=== PATIENT | male | born 1955 | race Caucasian/White ===

== ENCOUNTER 2016-12-18 04:38 | Inpatient (IN) | payer OTHER ==
[~2016-12-18] VITALS: Ht 182.9 cm; Wt 70.2 kg
[~2016-12-18 04:38] MED LIST: CEPH500C2 PO; HYDR-5688 PO; MISC1CAP60 PO
[2016-12-18] MEDS ORDERED: ASPIRIN 81 MG CHEW PO STA (05:03)
[2016-12-18 05:15] LABS: BASO % 0.3 %; BASO ABS # 0.02 K/uL (0-0.2); COMPLETE YES; EOS % 1.5 %; HEMATOCRIT 42.2 % (42-52); IG% 0.2 %; LYMPH % 27.2 %; MEAN CELL VOLUME 86.1 fL (80-100); MEAN CORPUSCULAR HEMOGLOBIN 29.4 pg (25-34); MEAN CORPUSCULAR HGB CONC 34.1 g/dl (32-36); MEAN PLATELET VOLUME 9.6 fL (7.4-10.4); NEUT % 59.8 %; PLATELET COUNT 223 K/uL (130-400); WHITE BLOOD COUNT 6.62 K/uL (4.8-10.8)
[2016-12-18] MEDS ORDERED: NITROGLYCERIN 0.4 MG SL PER TAB CHARGE SL PRN ×2 (05:15→07:15)
[2016-12-18 05:23] LABS: BUN/CREATININE RATIO 16.3 (10-20); CALCIUM 8.3 mg/dl (8.5-10.1); CREATININE 0.98 mg/dl (0.60-1.40); POTASSIUM 3.2 mmol/L (3.5-5.1)
[2016-12-18 05:28] LABS: CKMB/CK RATIO 1.4 (0-3.0)
[2016-12-18] MEDS ORDERED: POTASSIUM CHLORIDE 10 MEQ TABCR PO STA (05:46)
--- NOTE | 2016-12-18 05:58 | EMERGENCY ROOM VISIT NOTE ---
History First contact with patient: 04:43 Chief Complaint: CHEST PAIN Stated Complaint: TIGHTNESS IN LEFT CHEST Nursing Triage Summary: see triage note History of Present Illness The patient is a 61 year old male who presents to the Emergency Room with complaints of left sided chest pain for the past 3 days described as aching, ranging in severity 5 out of 10. Nothing makes it better or worse. No stress test. No family history of heart disease. Patient used to smoke. He quit 4 years ago. Patient denies blood pressure, cholesterol, diabetes. No recent travel. No leg pain or swelling. Patient denies dyspnea, fever, chills, cough , congestion, abdominal pain, nausea, vomiting, diarrhea, radiating pain, diaphoresis. Review of Systems See HPI for pertinent positives & negatives. A total of 10 systems reviewed and were otherwise negative. Past Medical/Surgical History BPH Social History Smoking Status: Former Smoker Drug Use: none Marital Status: Housing Status: lives with family Occupation Status: employed Current/Historical Medications Scheduled Misc Natural Products (Saw [place]), 1 CAP PO BID Allergies Coded Allergies: No Known Allergies (Verified , 12/18/16) Physical Exam Vital Signs Date Time Temp Pulse Resp B/P Pulse Ox O2 Delivery O2 Flow Rate FiO2 12/18/16 05:06 98 Room Air 12/18/16 05:06 98 Room Air 12/18/16 04:55 74 12/18/16 04:53 97 Room Air 12/18/16 04:41 36.6 72 16 112/69 96 Room Air Physical Exam VITALS: Vitals are noted on the nurse's note and reviewed by myself. Vital signs stable. GENERAL: Pleasant male anxious-appearing, in no acute distress, nondiaphoretic, well-developed well-nourished. SKIN: The skin was without rashes, erythema, edema, or bruising. There is no tenting of the skin. Capillary reflex less than 2 seconds. HEAD: Normocephalic atraumatic. EARS: External auditory canals clear, tympanic membranes pearly greco without erythema or effusion bilaterally. EYES: Pupils equal round and reactive to light and accommodation. Conjunctivae without injection, sclerae without icterus. Extraocular movements intact. NOSE: Patent, turbinates without inflammation or discharge. MOUTH: Mucous membranes moist Pharynx without erythema or exudate. Uvula midline. Airway patent. Tongue does not deviate. NECK: Supple without nuchal rigidity. No lymphadenopathy. No thyromegaly. Cervical spine is nontender. No JVD. HEART: Regular rate and rhythm without murmurs gallops or rubs. Chest nontender to palpation LUNGS: Clear to auscultation bilaterally without wheezes, rales or rhonchi. No dullness to percussion. No retractions or accessory muscle use. ABDOMEN: Positive bowel sounds x 4. Normal tympanic percussion. Soft, nontender, without masses or organomegaly. Garzon sign negative. No guarding or rebound tenderness. MUSCULOSKELETAL: No muscle atrophy, erythema, or edema noted. NEURO: Patient was alert and oriented to person place and time. Normal sensation to light and sharp touch. No focal neurological deficits. Medical Decision & Procedures Laboratory Results 12/18/16 04:55 Red Blood Count 4.90, Mean Corpuscular Volume 86.1, Mean Corpuscular Hemoglobin 29.4, Mean Corpuscular Hemoglobin Concent 34.1, Mean Platelet Volume 9.6, Neutrophils (%) (Auto) 59.8, Lymphocytes (%) (Auto) 27.2, Monocytes (%) (Auto) 11.0, Eosinophils (%) (Auto) 1.5, Basophils (%) (Auto) 0.3, Neutrophils # (Auto ) 3.96, Lymphocytes # (Auto) 1.80, Monocytes # (Auto) 0.73, Eosinophils # (Auto ) 0.10, Basophils # (Auto) 0.02 12/18/16 04:55 Test 12/18/16 04:55 12/18/16 05:01 White Blood Count 6.62 K/uL (4.8-10.8) Red Blood Count 4.90 M/uL (4.7-6.1) Hemoglobin 14.4 g/dL (14.0-18.0) Hematocrit 42.2 % (42-52) Mean Corpuscular Volume 86.1 fL (80-100) Mean Corpuscular Hemoglobin 29.4 pg (25-34) Mean Corpuscular Hemoglobin Concent 34.1 g/dl (32-36) Platelet Count 223 K/uL (130-400) Mean Platelet Volume 9.6 fL (7.4-10.4) Neutrophils (%) (Auto) 59.8 % Lymphocytes (%) (Auto) 27.2 % Monocytes (%) (Auto) 11.0 % Eosinophils (%) (Auto) 1.5 % Basophils (%) (Auto) 0.3 % Neutrophils # (Auto) 3.96 K/uL (1.4-6.5) Lymphocytes # (Auto) 1.80 K/uL (1.2-3.4) Monocytes # (Auto) 0.73 K/uL (0.11-0.59) Eosinophils # (Auto) 0.10 K/uL (0-0.5) Basophils # (Auto) 0.02 K/uL (0-0.2) RDW Standard Deviation 41.7 fL (36.4-46.3) RDW Coefficient of Variation 13.3 % (11.5-14.5) Immature Granulocyte % (Auto) 0.2 % Immature Granulocyte # (Auto) 0.01 K/uL (0.00-0.02) Anion Gap 9.0 mmol/L (3-11) Est Creatinine Clear Calc Drug Dose 82.9 ml/min Estimated GFR () 95.4 Estimated GFR (Non- 82.3 BUN/Creatinine Ratio 16.3 (10-20) Calcium Level 8.3 mg/dl (8.5-10.1) Total Bilirubin 0.4 mg/dl (0.2-1) Direct Bilirubin 0.1 mg/dl (0-0.2) Aspartate Amino Transf (AST/SGOT) 10 U/L (15-37) Alanine Aminotransferase (ALT/SGPT) 19 U/L (12-78) Alkaline Phosphatase 72 U/L (45-117) Total Creatine Kinase 119 U/L (39-308) Creatine Kinase MB 1.7 ng/ml (0.5-3.6) Creatine Kinase MB Ratio 1.4 (0-3.0) Total Protein 6.9 gm/dl (6.4-8.2) Albumin 3.8 gm/dl (3.4-5.0) Lipase 134 U/L (73-393) Bedside Troponin I 0.000 ng/ml (0-0.045) Medications Administered Medications (Trade) Dose Ordered Sig/Kevin Route Start Time Stop Time Status Last Admin Dose Admin Aspirin (Aspirin Chew) 324 mg NOW STAT PO 12/18/16 05:03 2/24/17 05:05 DC 12/18/16 05:11 324 MG Nitroglycerin (Nitrostat Tab) 0.4 mg Q5M PRN SL 12/18/16 05:15 01/17/17 05:14 12/18/16 05:11 0.4 MG ED Course Prior records/ancillary studies reviewed. Triage Nursing notes reviewed. The patient's history was concerning for chest pain. Differential diagnosis: Etiologies such as cardiac ischemia, aortic dissection, pulmonary embolism, pneumonia, pneumothorax, musculoskeletal, infections, pericarditis, myocarditis , esophageal rupture, gastrointestinal, as well as others were entertained. Physical examination: As above. ER treatment provided: Aspirin, nitroglycerin On reassessment the patient felt better. Diagnostic interpretation by me: The electrocardiogram was normal sinus, normal intervals, incomplete right bundle-branch block, no acute ST-T wave changes. Impression incomplete right bundle branch block interpreted by myself The labs revealed [] Imaging studies: Chest x-ray with no acute consolidation or pneumothorax per my interpretation Consultation: A consultation was placed with the hospitalist Dr Corbin. The case was discussed and diagnostics were reviewed. The patient was evaluated in the ER for further treatment. Exam and history seem consistent with chest pain. Patient will be evaluated by medicine for possible admission. Negative troponin. He used to smoke. By the evaluation outlined above emergent etiologies such as aortic dissection, pulmonary embolism, pneumonia, pneumothorax, infections, pericarditis, myocarditis, gastrointestinal, as well as others were deemed relatively unlikely. The pt informed about the findings as listed above. All questions were answered and pleased with the treatment. Case reviewed with my attending Medical Decision As above Impression Primary Impression: Substernal precordial chest pain Departure Information Dispostion Being Evaluated By Hospitalist Condition FAIR Referrals Deo Crabtree M.D. (PCP) Patient Instructions My [facility]
[2016-12-18] MEDS ORDERED: ONDANSETRON INJ 2 MG/ML 2 ML VIAL IV PRN (07:15)
[2016-12-18] MEDS ORDERED: POLYETHYLENE (MIRALAX) 17 GM PACK PO PRN (07:15)
[2016-12-18] MEDS ORDERED: GI COCKTAIL PO ONE (07:15)
[2016-12-18] MEDS ORDERED: ACETAMINOPHEN 325 MG TAB PO PRN (07:15)
[2016-12-18] MEDS ORDERED: ATORVASTATIN 40 MG TAB PO ONE (07:15)
[2016-12-18] MEDS ORDERED: GI COCKTAIL PO PRN (07:15)
--- NOTE | 2016-12-18 07:19 | History and Physical ---
History & Physical Date & Time of Service: Dec 18, 2016 at 07:08 Chief Complaint: Tightness In Left Chest Primary Care Physician: Deo Crabtree M.D. History of Present Illness Source: patient The patient is a 61 yoM with no history of CAD nor risk factors aside from age, who presents to the ER with 3 days of chest pain that became more intense today. He does not remember what he was doing when the pain began but it was described as a tightness in his L anterior chest wall without radiation, and will become intermittently more intense, although there are no obvious triggers for this. The intense episodes last <30 mins. He reports associated symptoms including some SOB, lightheadedness, palpitations, and numbness in his hands ( however, this is chronic). He denies any nausea, vomiting, diarrhea, abdominal pain, or blood per rectum. He is a former smoker but has quit. Past Medical/Surgical History Medical Problems: (1) BPH (benign prostatic hypertrophy) Status: Chronic Family History Parkinson's disease No h/o CAD Social History Smoking Status: Former Smoker Smokeless Tobacco Use: No Alcohol Use: none Drug Use: none Marital Status: Housing status: lives with family, lives with significant other Occupational Status: employed Immunizations History of Influenza Vaccine: Yes Influenza Vaccine Date: Jul 25, 2016 History of Tetanus Vaccine?: Yes Tetanus Immunization Date: Jan 15, 2009 History of Pneumococcal: Yes Pneumococcal Date: Jan 15, 2009 History of Hepatitis B Vaccine: Unknown Multi-Drug Resistant Organisms History of MDRO: No Allergies Coded Allergies: No Known Allergies (Verified , 12/18/16) Home Medications Scheduled Misc Natural Products (Saw [place]), 1 CAP PO BID Review of Systems All systems reviewed and negative except as indicated on HPI above. Physical Exam Vital Signs Date Time Temp Pulse Resp B/P Pulse Ox O2 Delivery O2 Flow Rate FiO2 12/18/16 06:59 69 18 116/60 97 Room Air 12/18/16 06:11 70 20 95/58 96 Room Air 12/18/16 05:06 98 Room Air 12/18/16 05:06 98 Room Air 12/18/16 04:55 74 12/18/16 04:53 97 Room Air 12/18/16 04:41 36.6 72 16 112/69 96 Room Air GEN: WNWD, in no acute distress, alert and appropriate HEENT: NC/AT, PERRL, normal sclerae, pharynx non-acute, MMM CARDIO: reg rate, S1/2 heard without m/g/r, no TTP on anterior chest wall. LUNGS: CTA bilaterally, no crackles, rales or wheezes, good diaphragmatic excursion ABD: soft, non-tender, non-distended, no rebound or guarding EXTREMITY: no LE swelling or edema, extremities are warm and well-perfused NEURO: CN 2-12 grossly intact, no gross focal deficits MUSC: 5/5 strength throughout, no focal deficits SKIN: warm and dry Diagnostics Laboratory Results Results Past 24 Hours Test 12/18/16 04:55 12/18/16 05:01 12/18/16 07:01 Range/Units White Blood Count 6.62 4.8-10.8 K/uL Red Blood Count 4.90 4.7-6.1 M/uL Hemoglobin 14.4 14.0-18.0 g/dL Hematocrit 42.2 42-52 % Mean Corpuscular Volume 86.1 80-100 fL Mean Corpuscular Hemoglobin 29.4 25-34 pg Mean Corpuscular Hemoglobin Concent 34.1 32-36 g/dl Platelet Count 223 130-400 K/uL Mean Platelet Volume 9.6 7.4-10.4 fL Neutrophils (%) (Auto) 59.8 % Lymphocytes (%) (Auto) 27.2 % Monocytes (%) (Auto) 11.0 % Eosinophils (%) (Auto) 1.5 % Basophils (%) (Auto) 0.3 % Neutrophils # (Auto) 3.96 1.4-6.5 K/uL Lymphocytes # (Auto) 1.80 1.2-3.4 K/uL Monocytes # (Auto) 0.73 0.11-0.59 K/uL Eosinophils # (Auto) 0.10 0-0.5 K/uL Basophils # (Auto) 0.02 0-0.2 K/uL RDW Standard Deviation 41.7 36.4-46.3 fL RDW Coefficient of Variation 13.3 11.5-14.5 % Immature Granulocyte % (Auto) 0.2 % Immature Granulocyte # (Auto) 0.01 0.00-0.02 K/uL Sodium Level 143 136-145 mmol/L Potassium Level 3.2 3.5-5.1 mmol/L Chloride Level 105 98-107 mmol/L Carbon Dioxide Level 29 21-32 mmol/L Anion Gap 9.0 3-11 mmol/L Blood Urea Nitrogen 16 7-18 mg/dl Creatinine 0.98 0.60-1.40 mg/dl Est Creatinine Clear Calc Drug Dose 82.9 ml/min Estimated GFR () 95.4 Estimated GFR (Non- 82.3 BUN/Creatinine Ratio 16.3 10-20 Random Glucose 88 70-99 mg/dl Calcium Level 8.3 8.5-10.1 mg/dl Total Bilirubin 0.4 0.2-1 mg/dl Direct Bilirubin 0.1 0-0.2 mg/dl Aspartate Amino Transf (AST/SGOT) 10 15-37 U/L Alanine Aminotransferase (ALT/SGPT) 19 12-78 U/L Alkaline Phosphatase 72 45-117 U/L Total Creatine Kinase 119 39-308 U/L Creatine Kinase MB 1.7 0.5-3.6 ng/ml Creatine Kinase MB Ratio 1.4 0-3.0 Total Protein 6.9 6.4-8.2 gm/dl Albumin 3.8 3.4-5.0 gm/dl Lipase 134 73-393 U/L Bedside Troponin I 0.000 0-0.045 ng/ml CXR normal Normal EKG (SR 67, no ST changes or Q waves) Impression Assessment and Plan 61 yo M with age as his only RF for CAD presents with 3 days of atypical chest pain 1. 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 Trend enzymes, ASA/statin, lipid panel, monitor on telemetry. GI cocktail to treat his tightness; nitro given in the ER did not cause pain to completely go away. PE unlikely without hypoxia, increased work of breathing or risk factors. No infectious symptoms and CXR is negative making pneumonia less likely. 2. BPH-hold saw [place] at this time 3. Hypokalemia-replace. DVT proph-Lovenox. Full Code Dispo-to telemetry floor Jade Royal DO [facility] Hospitalist. Level of Care Telemetry Resuscitation Status FULL RESUSCITATION VTE Prophylaxis VTE Risk Assessment Done? Y/N: Yes Risk Level: Moderate Given or contraindicated: Enoxaparin (Lovenox)SQ
[2016-12-18 07:27] LABS: CHOLESTEROL/HDL RATIO 2.6
[2016-12-18] MEDS ORDERED: IV FLUIDS COMPLETED PRN (07:45)
--- NOTE | 2016-12-18 08:16 | DIAGNOSTIC IMAGING REPORT ---
CHEST ONE VIEW PORTABLE HISTORY: Atypical CHEST PAIN COMPARISON: Chest 03/08/2006. FINDINGS: A few linear scarlike densities within the right lung apex. This is not significantly changed. Otherwise, the lungs are clear. The heart is normal in size. No pleural effusions. No pneumothorax. Lungs remain hyperexpanded. IMPRESSION: No significant change compared to the prior study. No acute process. Electronically signed by: Rogelio Coelho M.D. 12/18/2016 8:15 AM Dictated Date/Time: 12/18/2016 8:13 AM
[2016-12-18 08:40] VITALS: BP 119/70; PULSE 77; TEMP 36.7; O2SAT 97; Ht 182.9 cm; Wt 70.2 kg
[2016-12-18] MEDS ORDERED: ALUMINUM/MAGNESIUM SUSP 72 ML, LIDOCAINE HCL 2% VISCOUS SOLN 24 ML, BARCODE IDENTIFIER ... PO PRN ×2 (09:15)
[2016-12-18] MEDS ORDERED: ALUMINUM/MAGNESIUM SUSP 18 ML, LIDOCAINE HCL 2% VISCOUS SOLN 6 ML, BARCODE IDENTIFIER 1 EA PO ONE ×2 (10:00)
[2016-12-18 10:04] LABS: INR 1.1 (0.9-1.1); PROTHROMBIN TIME (PATIENT) 11.3 SECONDS (9.0-12.0)
[2016-12-18] MEDS: ASPIRIN 81 MG ECTAB PO SCH (10:24)
[2016-12-18] MEDS: ENOXAPARIN 40 MG/0.4 ML SYR SC SCH (10:36)
[2016-12-18 11:54] LABS: CKMB/CK RATIO 1.5 (0-3.0)
[2016-12-18] MEDS ORDERED: POTASSIUM CHLORIDE 20 MEQ TABCR PO ONE (12:00)
[2016-12-18 12:08] VITALS: BP 103/62; PULSE 69; TEMP 36.6; O2SAT 98
[2016-12-18 15:44] VITALS: BP 109/69; PULSE 72; TEMP 36.6; O2SAT 96
--- NOTE | 2016-12-18 16:11 | ECHOCARDIOGRAM REPORT ---
*NOTICE TO RECEIVING CONSTITUTION PARTY AGENCY This information is strictly Confidential and protected under [place] law. [place] law prohibits you from making any further disclosure of this information unless further disclosure is expressly permitted by the written consent of the person to whom it pertains or is authorized by law. A general authorization for the release of medical or other information is not sufficient for this purpose. Hospital accepts no responsibility if the information is made available to any other person, INCLUDING THE PATIENT. Interpretation Summary * Name: LEOLA LABOY Study Date: 12/18/2016 02:33 PM * Patient Location: .2T\S\E220\S\1 HR: 64 * : 1955 (M/d/yyyy) Gender: Male Height: 72 in * Age: 61 yrs Ethnicity: CA Weight: 165 lb * Ordering Physician: Anna Saunders * Referring Physician: Self, Referred * Performed By: Elicia Flowers RCS * * Reason For Study: CHEST PAIN * BSA: 2.0 m2 * -- Conclusions -- * The left ventricular wall motion is normal. * There is mild concentric left ventricular hypertrophy. * Ejection Fraction = 55-60%. * There is severe focal calcification of the aortic valve * The presence of a bicuspid aortic valve cannot be excluded. * The 2D appearance of the valve and the Doppler assessment are discordant. * Doppler assessment suggests the presence of moderate aortic stenosis. * Severe aortic stenosis is suggested based on 2D appearance as well as the continuity equation. * The aortic root is mildly dilated. * The proximal ascending aorta was not visualized. Procedure Details * A complete two-dimensional transthoracic echocardiogram was performed (2D, M-mode, Doppler and color flow Doppler). Left Ventricle * The left ventricle is normal in size. * There is mild concentric left ventricular hypertrophy. * Left ventricular systolic function is normal. * Ejection Fraction = 55-60%. * The left ventricular wall motion is normal. Right Ventricle * The right ventricle is normal size. * The right ventricular systolic function is normal as assessed by tricuspid annular plane systolic excursion (TAPSE) (normal >1.5 cm). Atria * The left atrial size is normal. * Right atrial size is normal. * There is no evidence of atrial septal defect, but resolution does not allow assessment for a patent foramen ovale. Mitral Valve * The mitral valve is normal. * There is no mitral valve stenosis. * Significant mitral regurgitation is absent. Tricuspid Valve * The tricuspid valve is normal. * There is no tricuspid stenosis. * Significant tricuspid regurgitation is absent. Aortic Valve * There is severe focal calcification of the aortic valve The presence of a bicuspid aortic valve cannot be excluded. * The 2D appearance of the valve and the Doppler assessment are discordant. Doppler assessment suggest the presence of moderate aortic stenosis. Severe aortic stenosis is suggested based on 2D appearance as well as the continuity equation. * There is no significant aortic regurgitation. Pulmonic Valve * The pulmonary valve is not well seen, but the Doppler examination is normal without significant regurgitation or stenosis. Great Vessels * The aortic root is mildly dilated. The proximal ascending aorta was not visualized. Pericardium/Pleural * There is no pericardial effusion. Great Vessels * Normal inferior vena cava diameter and respiratory variation suggests normal central venous pressure. Left Ventricular Diastolic Function * Grade I diastolic dysfunction, (abnormal relaxation pattern). MMode 2D Measurements and Calculations IVSd 1.3 cm IVSs 1.7 cm LVIDd 4.2 cm LVIDs 3.1 cm LVPWd 1.5 cm LVPWs 1.5 cm IVS/LVPW 0.88 FS 25.6 % EDV(Teich) 77.1 ml ESV(Teich) 38.0 ml EF(Teich) 50.8 % EDV(cubed) 72.3 ml ESV(cubed) 29.9 ml EF(cubed) 58.7 % % IVS thick 28.6 % % LVPW thick 3.5 % LV mass(C)d 217.6 grams LV mass(C)dI 110.9 grams/m\S\2 LV mass(C)s 182.9 grams LV mass(C)sI 93.2 grams/m\S\2 SV(Teich) 39.1 ml SI(Teich) 19.9 ml/m\S\2 SV(cubed) 42.5 ml SI(cubed) 21.6 ml/m\S\2 Ao root diam 3.9 cm Ao root area 12.1 cm\S\2 LA dimension 2.4 cm LA/Ao 0.61 LVOT diam 2.0 cm LVOT area 3.2 cm\S\2 LVAd ap4 26.7 cm\S\2 LVLd ap4 7.1 cm EDV(MOD-sp4) 83.3 ml EDV(sp4-el) 85.8 ml LVAs ap4 16.6 cm\S\2 LVLs ap4 5.7 cm ESV(MOD-sp4) 39.3 ml ESV(sp4-el) 41.2 ml EF(MOD-sp4) 52.8 % EF(sp4-el) 52.0 % LVAd ap2 25.2 cm\S\2 LVLd ap2 7.1 cm EDV(MOD-sp2) 74.6 ml EDV(sp2-el) 76.1 ml LVAs ap2 14.3 cm\S\2 LVLs ap2 5.6 cm ESV(MOD-sp2) 29.5 ml ESV(sp2-el) 30.8 ml EF(MOD-sp2) 60.4 % EF(sp2-el) 59.6 % LVLd %diff 0.49 % EDV(MOD-bp) 78.5 ml LVLs %diff -0.25 % ESV(MOD-bp) 34.4 ml EF(MOD-bp) 56.1 % SV(MOD-sp4) 44.0 ml SI(MOD-sp4) 22.4 ml/m\S\2 SV(MOD-sp2) 45.1 ml SI(MOD-sp2) 23.0 ml/m\S\2 SV(MOD-bp) 44.0 ml SI(MOD-bp) 22.4 ml/m\S\2 SV(sp4-el) 44.6 ml SI(sp4-el) 22.7 ml/m\S\2 SV(sp2-el) 45.3 ml SI(sp2-el) 23.1 ml/m\S\2 Doppler Measurements and Calculations MV E max dev 62.6 cm/sec MV A max dev 58.2 cm/sec MV E/A 1.1 MV P1/2t max dev 64.7 cm/sec MV P1/2t 90.6 msec MVA(P1/2t) 2.4 cm\S\2 MV dec slope 209.3 cm/sec\S\2 MV dec time 0.24 sec Ao V2 max 285.8 cm/sec Ao max PG 32.7 mmHg Ao max PG (full) 30.9 mmHg Ao V2 mean 200.4 cm/sec Ao mean PG 18.2 mmHg Ao mean PG (full) 17.2 mmHg Ao V2 VTI 63.5 cm ANA(I,A) 0.81 cm\S\2 ANA(I,D) 0.81 cm\S\2 ANA(V,A) 0.74 cm\S\2 ANA(V,D) 0.74 cm\S\2 LV V1 max PG 1.8 mmHg LV V1 mean PG 1.0 mmHg LV V1 max 67.1 cm/sec LV V1 mean 48.2 cm/sec LV V1 VTI 16.3 cm SV(Ao) 771.1 ml SI(Ao) 392.8 ml/m\S\2 SV(LVOT) 51.5 ml SI(LVOT) 26.2 ml/m\S\2 PA V2 max 71.8 cm/sec PA max PG 2.1 mmHg
[2016-12-18 17:43] LABS: CKMB/CK RATIO 1.3 (0-3.0)
[2016-12-18 20:00] VITALS: BP 122/71; PULSE 76; TEMP 36.7; O2SAT 96
[2016-12-18 23:50] VITALS: BP 109/61; PULSE 77; TEMP 36.6; O2SAT 95
[2016-12-19 04:22] VITALS: BP 109/62; PULSE 68; TEMP 37.1; O2SAT 97
[2016-12-19 08:06] VITALS: BP 115/66; PULSE 73; TEMP 36.6; O2SAT 95
[2016-12-19] MEDS: ENOXAPARIN 40 MG/0.4 ML SYR SC SCH (08:06)
[2016-12-19] MEDS: ASPIRIN 81 MG ECTAB PO SCH (08:06)
[2016-12-19 09:48] LABS: BUN/CREATININE RATIO 13.7 (10-20); CALCIUM 9.2 mg/dl (8.5-10.1); CREATININE 0.98 mg/dl (0.60-1.40); POTASSIUM 3.9 mmol/L (3.5-5.1)
--- NOTE | 2016-12-19 11:50 | Progress Note ---
Internal Med Progress Note Date of Service: Dec 19, 2016. Provider Documentation: SUBJECTIVE: The patient was seen and examined on 12/18/16 as well Still has some discomfort in left sided chest wall on movement No other symptoms associated with it No arrhythmia noted OBJECTIVE: Vital Signs-as noted below Exam: General-No distress at rest Eyes-normal ENT-normal Neck-Supple Lungs-Clear to auscultate bilaterally ,no tenderness locally Heart-Regular,no murmur appreciated Abdomen-Benign,no masses,bowel sound present Extremities-No edema Neuro-AAOx3 Lab data as noted below. ASSESSMENT & PLAN: Chest pain No significant Risk factors No EKG and or Ella changes -No ACS Still has some left sided chest discomfort No associated symptoms Continue current medications Severe Aortic Stenosis Diagnosed ECHO during this Admission ECHO:: * The left ventricular wall motion is normal. * There is mild concentric left ventricular hypertrophy. * Ejection Fraction = 55-60%. * There is severe focal calcification of the aortic valve * The presence of a bicuspid aortic valve cannot be excluded. * The 2D appearance of the valve and the Doppler assessment are discordant. * Doppler assessment suggests the presence of moderate aortic stenosis. * Severe aortic stenosis is suggested based on 2D appearance as well as the continuity equation. * The aortic root is mildly dilated. * The proximal ascending aorta was not visualized. Chest pain could be due to Cardiology Consult and probable further Cardiac evaluation BPH-hold sid [place] at this time Denies any symptoms DVT proph-Lovenox. Full Code DISPOSITION Awaited Vital Signs: Date Time Temp Pulse Resp B/P Pulse Ox O2 Delivery O2 Flow Rate FiO2 12/19/16 08:06 36.6 73 18 115/66 95 Room Air 12/19/16 08:05 Room Air 12/19/16 04:22 37.1 68 16 109/62 97 Room Air 12/19/16 04:15 Room Air 12/19/16 00:00 Room Air 12/18/16 23:50 36.6 77 20 109/61 95 Room Air 12/18/16 20:00 Room Air 12/18/16 20:00 36.7 76 16 122/71 96 Room Air 12/18/16 16:02 Room Air 12/18/16 15:44 36.6 72 18 109/69 96 Room Air 12/18/16 12:08 36.6 69 18 103/62 98 Room Air 12/18/16 12:02 Room Air Lab Results: Results Past 24 Hours Test 12/18/16 17:03 12/19/16 08:58 Range/Units Total Creatine Kinase 117 39-308 U/L Creatine Kinase MB 1.5 0.5-3.6 ng/ml Creatine Kinase MB Ratio 1.3 0-3.0 Troponin I < 0.015 0-0.045 ng/ml Sodium Level 136 136-145 mmol/L Potassium Level 3.9 3.5-5.1 mmol/L Chloride Level 100 98-107 mmol/L Carbon Dioxide Level 31 21-32 mmol/L Anion Gap 5.0 3-11 mmol/L Blood Urea Nitrogen 13 7-18 mg/dl Creatinine 0.98 0.60-1.40 mg/dl Est Creatinine Clear Calc Drug Dose 78.8 ml/min Estimated GFR () 95.4 Estimated GFR (Non- 82.3 BUN/Creatinine Ratio 13.7 10-20 Random Glucose 117 70-99 mg/dl Calcium Level 9.2 8.5-10.1 mg/dl
[2016-12-19 12:05] VITALS: BP 111/71; PULSE 78; TEMP 36.7; O2SAT 96
[2016-12-19 15:50] VITALS: BP 118/76; PULSE 81; TEMP 36.7; O2SAT 96
[2016-12-19 19:47] VITALS: BP 129/81; PULSE 92; TEMP 36.7; O2SAT 95
[2016-12-19 23:40] VITALS: BP 105/71; PULSE 76; TEMP 36.5; O2SAT 96
[2016-12-20] VITALS (7 sets, daily range): BP systolic 98–138; BP diastolic 60–76; PULSE 74–95; TEMP 36.4–36.8; O2SAT 96–99
[2016-12-20] MEDS: ASPIRIN 81 MG ECTAB PO SCH (07:51)
[2016-12-20] MEDS: ENOXAPARIN 40 MG/0.4 ML SYR SC SCH (07:51)
[2016-12-20] MEDS: NSS + 20MEQ KCL 1000ML 1,000 ML IV SCH ×2 (09:41→23:28)
[2016-12-20] MEDS ORDERED: OPTIRAY 320 IV PRN (11:30)
--- NOTE | 2016-12-20 11:41 | CARDIOLOGY CONSULTATION ---
DATE OF CONSULTATION: 12/20/2016 REASON FOR CONSULTATION: Bicuspid aortic valve, aortic stenosis, and chest pain. REFERRING PHYSICIAN: Dr. Anna Saunders. CHIEF COMPLAINT ON ADMISSION: Chest pain. HISTORY OF PRESENT ILLNESS: Mr. Chang is a 61-year-old male with no prior cardiovascular history, presented to the Emergency Department with 3 days of intermittent chest discomfort. On the day prior to admission, he noticed a particularly severe episode of chest discomfort on his left side, described as a pressure. The discomfort occurred when he was walking from the hospital to his vehicle after work. The discomfort lasted less than 1 minute. 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 He is able to complete all of his work activities without exertional chest pain or unusual shortness of breath. He is also active at his home life, engaging in regular hikes. At times, he notes dyspnea on exertion when climbing hills. Otherwise, his functional capacity is stable. Denies lightheadedness, dizziness, palpitations, syncope or near syncope. His cardiac enzymes are undetectable. His resting 2D transthoracic echo demonstrated a bicuspid aortic valve with moderate to severe aortic stenosis. He is a former smoker. Currently, the patient is pain free. He notes some brief episodes of chest discomfort on his left side, which are lasting under 1 minute. There is no associated shortness of breath. There are no dysrhythmias on telemetry. His is present at the bedside. No other complaints at this time. REVIEW OF SYSTEMS: The pertinent positive noted above. A comprehensive 10-system review is otherwise negative. PAST MEDICAL HISTORY: Benign prostatic hypertrophy. FAMILY HISTORY: Significant for Parkinson's disease. There is no family history of bicuspid valve, aortic dissection, premature coronary artery disease, or sudden cardiac . SOCIAL HISTORY: Former cigarette and smokeless tobacco use. He is and lives with his . ALLERGIES: No known drug allergies. HOME MEDICATIONS: None, currently consumes [place] twice daily. ECG on admission is sinus rhythm with an incomplete right bundle-branch block. LABORATORY DATA: Cardiac enzymes are negative x3 sets. LDL 78. Chest x-ray within normal limits. PHYSICAL EXAMINATION: VITAL SIGNS: Temperature is 36.6 degrees centigrade, pulse 83 beats per minute and regular, respiratory rate is 18 breaths per minute, blood pressure 103/63 and SaO2 is 96% on room air. GENERAL: NAD, awake, alert and oriented x3. HEENT: His mucous membranes are moist. There is no scleral icterus. Conjunctivae are pink. NECK: Supple without JVD or HJR. No carotid bruit. HEART: Regular with a normal S1 and S2. There is no murmur, rub, or gallop. LUNGS: Clear. There are no rales, rhonchi or wheeze. ABDOMEN: Soft and nontender. No rebound or guarding. Normal bowel sounds. EXTREMITIES: Warm and dry. There is no clubbing, cyanosis, or edema. Dorsalis pedis and posterior tibial pulses are 2/4 bilaterally. Radial pulses are 2/4 bilaterally. There is no abdominal bruit. NEUROLOGIC: Demonstrates no focal deficit. FINAL IMPRESSION: 1. A 61-year-old male admitted with chest discomfort with atypical features, which is not exertional. His initial evaluation significant for evidence of bicuspid valve and possible moderate aortic stenosis, although the aortic stenosis is mild by a Doppler criteria on recent echocardiogram. 2. Mild aortic root enlargement per resting 2D transthoracic echo. 3. No evidence of dysrhythmia on telemetry. PLAN AND RECOMMENDATIONS: Due to intermittent chest discomfort, evidence of bicuspid valve with mild aortic root enlargement, I have ordered a CT angiogram of the chest to rule out aneurysm/dissection. A CT is within normal limits. We will plan transesophageal echocardiogram in the a.m. for further assessment of severity of aortic stenosis and bicuspid valve. No medication changes at this time. Continue telemetry monitoring during hospitalization. Further recommendations pending review of testing. The risks, benefits and alternatives to transesophageal echocardiogram were discussed at length. Both the patient and his were agreeable. Thank you for allowing me to take part in the care of your patient. ERROL
--- NOTE | 2016-12-20 12:40 | DIAGNOSTIC IMAGING REPORT ---
CHEST CTA for AORTIC DISSECTION CT DOSE: 458.79 mGy.cm HISTORY: Atypical chest pain. TECHNIQUE: Multiaxial CT images of the chest were performed both before and after the intravenous administration of contrast to evaluate the aorta. Maximal intensity projection images were also obtained. COMPARISON STUDY: Chest 12/18/2016. FINDINGS: Noncontrast imaging shows no evidence for an intrauterine hematoma within the thoracic aorta. Calcifications at the aortic valve. Normal caliber thoracic aorta with no evidence for dissection. The central pulmonary arteries are patent. The heart is normal in size. No pleural or pericardial effusions. No mediastinal or hilar lymphadenopathy. There are 3 hypodense lesions within the liver with the largest in the left hepatic lobe measuring 1.7 cm. These likely represent cysts. There is a partially visualized cyst at the upper pole the right kidney. Normal adrenal glands. No fractures within the visualized osseous structures. No pneumothorax. The central airways are patent. Irregular biapical densities favor scarring. The lungs are otherwise clear. IMPRESSION: No evidence for an aortic dissection. Small amount of calcification at the aortic valve. Electronically signed by: Rogelio Coelho M.D. 12/20/2016 12:39 PM Dictated Date/Time: 12/20/2016 12:31 PM
--- NOTE | 2016-12-20 14:22 | Anesthesiology Progress Note ---
Anesthesia Progress Note Date of Service Dec 20, 2016. Progress Notes Pt is scheduled for YOKO on 12/21/16. Pt has h/o BPH and ?angina. On this admission, he has newly diagnosed , possibly mod-severe, possible bicuspid with mild aortic root enlargement. The pt has good functional status. Pt's records were reviewed. The pt is an acceptable candidate for MAC anesthesia. Consent was obtained from the pt. All questions/concerns were addressed.
--- NOTE | 2016-12-20 15:05 | Progress Note ---
Internal Med Progress Note Date of Service: Dec 20, 2016. Provider Documentation: SUBJECTIVE: The patient was seen and examined on 12/18/16 as well Still has some discomfort in left sided chest wall on movement No other symptoms associated with it No arrhythmia noted Has been complaining of occasional left sided CP and having Tachycardia OBJECTIVE: Vital Signs-as noted below Exam: General-No distress at rest Eyes-normal ENT-normal Neck-Supple Lungs-Clear to auscultate bilaterally ,no tenderness locally Heart-Regular,no murmur appreciated Abdomen-Benign,no masses,bowel sound present Extremities-No edema Neuro-AAOx3 Lab data as noted below. ASSESSMENT & PLAN: Chest pain No significant Risk factors No EKG and or Ella changes -No ACS Still has some left sided chest discomfort No associated symptoms Continue current medications CTA is negative for any Dissection Severe Aortic Stenosis Diagnosed ECHO during this Admission ECHO:: * The left ventricular wall motion is normal. * There is mild concentric left ventricular hypertrophy. * Ejection Fraction = 55-60%. * There is severe focal calcification of the aortic valve * The presence of a bicuspid aortic valve cannot be excluded. * The 2D appearance of the valve and the Doppler assessment are discordant. * Doppler assessment suggests the presence of moderate aortic stenosis. * Severe aortic stenosis is suggested based on 2D appearance as well as the continuity equation. * The aortic root is mildly dilated. * The proximal ascending aorta was not visualized. Chest pain could be due to Cardiology Consult and probable further Cardiac evaluation Appreciate Cardiology input YOKO tomorrow BPH-hold sid leon at this time Denies any symptoms DVT proph-Lovenox. Full Code DISPOSITION Awaited Vital Signs: Date Time Temp Pulse Resp B/P Pulse Ox O2 Delivery O2 Flow Rate FiO2 12/20/16 12:02 Room Air 12/20/16 11:40 36.7 86 18 138/76 96 Room Air 12/20/16 08:05 Room Air 12/20/16 07:09 36.6 83 18 98/60 96 Room Air 12/20/16 04:14 36.8 74 16 103/63 96 Room Air 12/20/16 04:12 Room Air 12/20/16 00:00 Room Air 12/19/16 23:40 36.5 76 16 105/71 96 Room Air 12/19/16 20:00 Room Air 12/19/16 19:47 36.7 92 18 129/81 95 Room Air 12/19/16 16:02 Room Air 12/19/16 15:50 36.7 81 20 118/76 96 Room Air
[2016-12-21] VITALS (17 sets, daily range): BP systolic 85–120; BP diastolic 49–72; PULSE 80–115; TEMP 36.4–36.9; O2SAT 94–99
[2016-12-21 06:30] LABS: HEMATOCRIT 43.9 % (42-52); MEAN CELL VOLUME 88.3 fL (80-100); MEAN CORPUSCULAR HEMOGLOBIN 29.8 pg (25-34); MEAN CORPUSCULAR HGB CONC 33.7 g/dl (32-36); MEAN PLATELET VOLUME 10.2 fL (7.4-10.4); PLATELET COUNT 214 K/uL (130-400); RED BLOOD COUNT 4.97 M/uL (4.7-6.1); WHITE BLOOD COUNT 7.67 K/uL (4.8-10.8)
[2016-12-21 07:01] LABS: BUN/CREATININE RATIO 13.7 (10-20); CALCIUM 8.4 mg/dl (8.5-10.1); CREATININE 0.98 mg/dl (0.60-1.40); MAGNESIUM 2.1 mg/dl (1.8-2.4); POTASSIUM 3.9 mmol/L (3.5-5.1)
[2016-12-21] MEDS ORDERED: BENZOCAIN/TETRACA/BUTAM SPRAY 200 APPLN/20 GM SPRY ONE (07:12)
[2016-12-21] MEDS ORDERED: CANNULA ONE ×2 (07:14)
[2016-12-21] MEDS ORDERED: PROPOFOL IV EMULSION 10 MG/ML 20 ML VIAL IV ONE ×2 (07:18→09:27)
[2016-12-21] MEDS ORDERED: LIDOCAINE HCL 2% 2 ML VIAL (20MG/ML) ONE ×2 (07:18→09:27)
[2016-12-21] MEDS ORDERED: FENTANYL CITRATE INJ 50 MCG/1 ML 2 ML VIAL ONE (08:25)
[2016-12-21] MEDS ORDERED: MIDAZOLAM HCL 1 MG/ML 2ML VIAL ONE (08:41)
[2016-12-21] MEDS ORDERED: LACTATED RINGER'S 1000ML 1,000 ML IV PRN (08:49)
[2016-12-21] MEDS ORDERED: ONDANSETRON INJ 2 MG/ML 2 ML VIAL IV PRN (09:00)
--- NOTE | 2016-12-21 09:04 | Cardiology Procedure Brief Nt ---
Preliminary Cardiology Note Procedure Date Dec 21, 2016. Pre-Procedure Diagnosis Bicuspid AV with aortic stenosis Post-Procedure Diagnosis Unable to sedate patient adequately for procedure. Heart not visualized Procedure(s) Performed Attempted YOKO intubation. Procedure could not be completed due to significant gag reflex, O2 desaturation, and excessive secretions. 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 Recommendations Plan YOKO under general anesthesia. Specimens none Complication(s) None Disposition Recovery Room / PACU
[2016-12-21] MEDS ORDERED: DEXAMETHASONE SOD INJ 4 MG/ML VIAL ONE (09:27)
[2016-12-21] MEDS ORDERED: ROCURONIUM BROMIDE 10 MG/ML 5 ML VIAL ONE (09:27)
[2016-12-21] MEDS ORDERED: ONDANSETRON INJ 2 MG/ML 2 ML VIAL ONE (09:27)
[2016-12-21] MEDS ORDERED: SUCCINYLCHOLINE CHLORIDE 20 MG/ML 10 ML VIAL IV ONE (09:27)
--- NOTE | 2016-12-21 10:11 | Anesthesiology Progress Note ---
Anesthesia Post Op Note Date & Time Dec 21, 2016 at 10:07 Vital Signs Pain Intensity: 0 Vital Signs Past 12 Hours Date Time Temp Pulse Resp B/P Pulse Ox O2 Delivery O2 Flow Rate FiO2 12/21/16 08:20 99 18 106/2 97 Room Air 12/21/16 08:10 106 18 111/56 97 Nasal Cannula 4 12/21/16 08:05 115 22 101/64 95 Nasal Cannula 4 12/21/16 08:00 102 20 114/66 99 Nasal Cannula 4 12/21/16 07:55 102 20 92/60 99 Nasal Cannula 4 12/21/16 07:50 102 20 101/70 99 Nasal Cannula 4 12/21/16 07:48 96 20 99 Nasal Cannula 4 12/21/16 07:45 98 20 117/68 99 Nasal Cannula 4 12/21/16 07:40 102 20 120/72 99 Nasal Cannula 4 12/21/16 07:35 99 20 118/68 99 Nasal Cannula 4 12/21/16 07:30 Room Air 12/21/16 07:21 36.9 92 18 113/61 95 Room Air 12/21/16 04:00 Room Air 12/21/16 03:56 36.6 84 20 101/61 95 Room Air 12/20/16 23:20 Room Air 12/20/16 23:10 36.5 78 18 103/65 96 Room Air Notes Mental Status: alert / awake / arousable, participated in evaluation Pt Amnestic to Procedure: Yes Nausea / Vomiting: adequately controlled Pain: adequately controlled Airway Patency, RR, SpO2: stable & adequate BP & HR: stable & adequate Hydration State: stable & adequate Anesthetic Complications: no major complications apparent 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 Pt had gagging, excessive secretions, upper airway obstruction and respiratory depression. YOKO exam was unable to be completed and attempt aborted. Pt awake and stable afterwards and arrangement being made to have case completed in OR under general endotracheal anesthesia
--- NOTE | 2016-12-21 10:49 | Anesthesiology Progress Note ---
Anesthesia Post Op Note Date & Time Dec 21, 2016 at 10:50 Vital Signs Pain Intensity: 0 Vital Signs Past 12 Hours Date Time Temp Pulse Resp B/P Pulse Ox O2 Delivery O2 Flow Rate FiO2 12/21/16 10:26 36.6 22 111/63 100 Nasal Cannula 2 12/21/16 10:14 88 16 111/57 99 12/21/16 10:14 111/57 12/21/16 10:09 93 16 104/68 99 12/21/16 10:09 104/68 12/21/16 10:08 36.2 95 18 108/64 100 Mask 10 12/21/16 10:04 108/71 12/21/16 10:04 95 18 108/71 100 12/21/16 08:20 99 18 106/2 97 Room Air 12/21/16 08:10 106 18 111/56 97 Nasal Cannula 4 12/21/16 08:05 115 22 101/64 95 Nasal Cannula 4 12/21/16 08:00 102 20 114/66 99 Nasal Cannula 4 12/21/16 07:55 102 20 92/60 99 Nasal Cannula 4 12/21/16 07:50 102 20 101/70 99 Nasal Cannula 4 12/21/16 07:48 96 20 99 Nasal Cannula 4 12/21/16 07:45 98 20 117/68 99 Nasal Cannula 4 12/21/16 07:40 102 20 120/72 99 Nasal Cannula 4 12/21/16 07:35 99 20 118/68 99 Nasal Cannula 4 12/21/16 07:30 Room Air 12/21/16 07:21 36.9 92 18 113/61 95 Room Air 12/21/16 04:00 Room Air 12/21/16 03:56 36.6 84 20 101/61 95 Room Air 12/20/16 23:20 Room Air 12/20/16 23:10 36.5 78 18 103/65 96 Room Air Notes Mental Status: alert / awake / arousable, participated in evaluation Pt Amnestic to Procedure: Yes Nausea / Vomiting: adequately controlled Pain: adequately controlled Airway Patency, RR, SpO2: stable & adequate BP & HR: stable & adequate Hydration State: stable & adequate Anesthetic Complications: no major complications apparent Pt doing well.
[2016-12-21] MEDS: ENOXAPARIN 40 MG/0.4 ML SYR SC SCH (11:39)
[2016-12-21] MEDS: ASPIRIN 81 MG ECTAB PO SCH (11:39)
--- NOTE | 2016-12-21 15:40 | TEE ---
*NOTICE TO RECEIVING CONSTITUTION PARTY AGENCY This information is strictly Confidential and protected under [place] law. [place] law prohibits you from making any further disclosure of this information unless further disclosure is expressly permitted by the written consent of the person to whom it pertains or is authorized by law. A general authorization for the release of medical or other information is not sufficient for this purpose. Hospital accepts no responsibility if the information is made available to any other person, INCLUDING THE PATIENT. Interpretation Summary * YOKO PERFORMED IN OR * Name: LEOLA LABOY Study Date: 12/21/2016 09:13 AM BP: 101/68 mmHg * Patient Location: .2T\S\E220\S\1 HR: 94 * : 1955 (M/d/yyyy) Gender: Male Height: 72 in * Age: 61 yrs Ethnicity: [place] Weight: 158 lb * Ordering Physician: Denys Blank * Referring Physician: Self, Referred * Performed By: Lucy Dailey RDCS * * Reason For Study: BICUSPID AORTIC VALVE * BSA: 1.9 m2 * History: BICUSPID AORTIC VALVE WITH STENOSIS * -- Conclusions -- * The aortic valve is bicuspid. * The aortic vcalve is moderately calcified. * Mild aortic regurgitation. * Mild valvular aortic stenosis. * ANA by 2D planimetry is 1.6cm2. * Left ventricular systolic function is normal. * Ejection Fraction = 60-65%. * Mild atherosclerotic plaque(s) in the descending aorta. Procedure Details * YOKO Probe #2 utilized for procedure. * Time out was conducted by the physician, nurse, and certified veterinary technician with positive identification of patient and procedure. * Informed consent for Transesophageal Echocardiogram was obtained prior to the procedure. * An intravenous line was placed. A topical anesthetic agent was used for oropharangeal anesthesia. A bite block was inserted. * Sedation performed by the anesthesia department. * The patient's vital signs, including blood pressure, heart rate, pulse oximetry and cardiac rhythm were monitored throughout the procedure . * The posterior oropharynx was anesthetized using a topical anesthetic spray. A bite guard was inserted. * A multifrequency, multiplane transesopheageal echocardiographic endoscope was inserted and manipulated in the standard fashion to achieve multiplane views. * The transesophageal probe was passed without difficulty. * The usual views were obtained; basal, mid-esophageal, transgastric and aortic views. * The patient tolerated the procedure well without evidence of orophangeal or esophageal trauma. * A 2D transesophageal echocardiogram with spectral and color flow Doppler was performed. Left Ventricle * The left ventricle is normal in size. * There is no thrombus. * There is normal left ventricular wall thickness. * Left ventricular systolic function is normal. * Ejection Fraction = 60-65%. * The left ventricular wall motion is normal. Right Ventricle * The right ventricular cavity size is normal (basal dimension <4.2 cm in right ventricular apical 4-chamber view). * There is normal right ventricular wall thickness. * The right ventricular systolic function is normal. Atria * The left atrial size is normal. * No thrombus is detected in the left atrial appendage. * Right atrial size is normal. * The interatrial septum is intact with no evidence for an atrial septal defect. Mitral Valve * The mitral valve anatomy is normal. * There is no mitral valve stenosis. * Significant mitral regurgitation is absent. Tricuspid Valve * The tricuspid valve anatomy is normal. * There is no tricuspid valve prolapse. * There is no tricuspid stenosis. * No tricuspid regurgitation. Aortic Valve * The aortic valve is bicuspid. * The aortic vcalve is moderately calcified. * Mild valvular aortic stenosis. * ANA by 2D planimetry is 1.6cm2. * Mild aortic regurgitation. Pulmonic Valve * The pulmonic valve leaflets are thin and pliable; valve motion is normal. * There is no pulmonic valvular stenosis. * There is no pulmonic valvular regurgitation. Great Vessels * The aortic root and proximal ascending aorta are normal sized. * Mild atherosclerotic plaque(s) in the descending aorta. Pericardium * There is no pericardial effusion. Right Ventricle * The right ventricular wall motion is normal.
--- NOTE | 2016-12-21 17:27 | Progress Note ---
Internal Med Progress Note Date of Service: Dec 21, 2016. Provider Documentation: SUBJECTIVE: The patient was seen and examined on 12/18/16 as well S/P YOKO No significant Aortic Stenosis Stress test in AM OBJECTIVE: Vital Signs-as noted below Exam: General-No distress at rest Eyes-normal ENT-normal Neck-Supple Lungs-Clear to auscultate bilaterally ,no tenderness locally Heart-Regular,no murmur appreciated Abdomen-Benign,no masses,bowel sound present Extremities-No edema Neuro-AAOx3 Lab data as noted below. ASSESSMENT & PLAN: Chest pain No significant Risk factors No EKG and or Ella changes -No ACS Still has some left sided chest discomfort No associated symptoms Continue current medications CTA is negative for any Dissection S/P YOKO-no significant Aortic Stenosis Severe Aortic Stenosis Diagnosed ECHO during this Admission ECHO:: * The left ventricular wall motion is normal. * There is mild concentric left ventricular hypertrophy. * Ejection Fraction = 55-60%. * There is severe focal calcification of the aortic valve * The presence of a bicuspid aortic valve cannot be excluded. * The 2D appearance of the valve and the Doppler assessment are discordant. * Doppler assessment suggests the presence of moderate aortic stenosis. * Severe aortic stenosis is suggested based on 2D appearance as well as the continuity equation. * The aortic root is mildly dilated. * The proximal ascending aorta was not visualized. Chest pain could be due to Cardiology Consult and probable further Cardiac evaluation Appreciate Cardiology input YOKO tomorrow -not showing significant Will go for Stress Test tomorrow BPH-hold saw edward at this time Denies any symptoms DVT proph-Lovenox. Full Code DISPOSITION Likely discharge tomorrow Vital Signs: Date Time Temp Pulse Resp B/P Pulse Ox O2 Delivery O2 Flow Rate FiO2 12/21/16 16:06 36.7 107 20 114/68 94 Room Air 12/21/16 16:00 Room Air 12/21/16 12:00 Room Air 12/21/16 11:36 36.4 83 16 105/59 96 Room Air 12/21/16 11:10 86 12/21/16 11:05 81 12/21/16 11:00 84 12/21/16 11:00 36.4 80 20 109/67 98 Room Air 12/21/16 10:55 88 12/21/16 10:44 107/63 12/21/16 10:39 111/67 12/21/16 10:34 114/67 12/21/16 10:29 111/63 12/21/16 10:26 36.6 22 111/63 100 Nasal Cannula 2 12/21/16 10:25 85 14 12/21/16 10:25 85 14 99 12/21/16 10:24 104/65 12/21/16 10:20 90 15 99 12/21/16 10:20 89 15 12/21/16 10:19 112/58 12/21/16 10:15 89 16 12/21/16 10:15 89 16 100 12/21/16 10:14 88 16 111/57 99 12/21/16 10:14 111/57 12/21/16 10:09 93 16 104/68 99 12/21/16 10:09 104/68 12/21/16 10:08 36.2 95 18 108/64 100 Mask 10 12/21/16 10:04 108/71 12/21/16 10:04 95 18 108/71 100 12/21/16 08:20 99 18 106/2 97 Room Air 12/21/16 08:10 106 18 111/56 97 Nasal Cannula 4 12/21/16 08:05 115 22 101/64 95 Nasal Cannula 4 12/21/16 08:00 102 20 114/66 99 Nasal Cannula 4 12/21/16 07:55 102 20 92/60 99 Nasal Cannula 4 12/21/16 07:50 102 20 101/70 99 Nasal Cannula 4 12/21/16 07:48 96 20 99 Nasal Cannula 4 12/21/16 07:45 98 20 117/68 99 Nasal Cannula 4 12/21/16 07:40 102 20 120/72 99 Nasal Cannula 4 12/21/16 07:35 99 20 118/68 99 Nasal Cannula 4 12/21/16 07:30 Room Air 12/21/16 07:21 36.9 92 18 113/61 95 Room Air 12/21/16 04:00 Room Air 12/21/16 03:56 36.6 84 20 101/61 95 Room Air 12/20/16 23:20 Room Air 12/20/16 23:10 36.5 78 18 103/65 96 Room Air 12/20/16 20:00 Room Air 12/20/16 19:15 36.5 80 18 108/72 96 Room Air Lab Results: Results Past 24 Hours Test 12/21/16 06:01 Range/Units White Blood Count 7.67 4.8-10.8 K/uL Red Blood Count 4.97 4.7-6.1 M/uL Hemoglobin 14.8 14.0-18.0 g/dL Hematocrit 43.9 42-52 % Mean Corpuscular Volume 88.3 80-100 fL Mean Corpuscular Hemoglobin 29.8 25-34 pg Mean Corpuscular Hemoglobin Concent 33.7 32-36 g/dl RDW Standard Deviation 43.8 36.4-46.3 fL RDW Coefficient of Variation 13.5 11.5-14.5 % Platelet Count 214 130-400 K/uL Mean Platelet Volume 10.2 7.4-10.4 fL Sodium Level 141 136-145 mmol/L Potassium Level 3.9 3.5-5.1 mmol/L Chloride Level 105 98-107 mmol/L Carbon Dioxide Level 30 21-32 mmol/L Anion Gap 6.0 3-11 mmol/L Blood Urea Nitrogen 13 7-18 mg/dl Creatinine 0.98 0.60-1.40 mg/dl Est Creatinine Clear Calc Drug Dose 77.6 ml/min Estimated GFR () 95.4 Estimated GFR (Non- 82.3 BUN/Creatinine Ratio 13.7 10-20 Random Glucose 91 70-99 mg/dl Calcium Level 8.4 8.5-10.1 mg/dl Magnesium Level 2.1 1.8-2.4 mg/dl
--- NOTE | 2016-12-21 17:52 | PROGRESS NOTE ---
DATE: 12/21/2016 CARDIOLOGY FOLLOWUP HISTORY OF PRESENT ILLNESS: The patient is seen and examined at the bedside. He tolerated transesophageal echo under general anesthesia. Preliminary review demonstrates mild aortic stenosis, no significant ascending aorta or aortic root dilatation. No recurrent chest discomfort. No dysrhythmias on telemetry. The patient offers no complaints at this time. REVIEW OF SYSTEMS: The pertinent positives noted above, a 4-system review including cardiovascular, pulmonary, gastroenterologic, and neurologic systems are otherwise negative. MEDICATIONS: Reviewed via EMR. Please see list for details. LABORATORY DATA: White blood cell count 7.67, hemoglobin is 14.8, platelet count is 214. Sodium 141, potassium 3.9, chloride 105, CO2 30, BUN 13, creatinine is 0.98. PHYSICAL EXAMINATION: VITAL SIGNS: Temperature 36.7 degrees centigrade, pulse 83 beats per minute and regular, respiratory rate is 20 breaths per minute, blood pressure 114/68; SAO2 is 94% on room air. GENERAL: NAD, awake, alert and oriented x3. HEENT: Mucous membranes moist. No scleral icterus. Conjunctivae pink. NECK: Supple, no JVD, no HJR, no carotid bruit. HEART: Regular with a normal S1 and S2. There is a soft 1/6 systolic ejection murmur heard best at the right second intercostal space. LUNGS: Clear without rales, rhonchi or wheeze. ABDOMEN: Soft, nontender. No rebound or guarding. EXTREMITIES: Warm and dry without clubbing, cyanosis, or edema. NEUROLOGIC: Demonstrates no focal deficit. FINAL IMPRESSION: 1. Bicuspid aortic valve with mild aortic stenosis. 2. Atypical chest discomfort. 3. Normal aortic root and ascending aortic diameter. PLAN AND RECOMMENDATIONS: Exercise stress echocardiography will be performed in the a.m. for further evaluation of chest discomfort. The results of transesophageal echo were reviewed at length. Would recommend repeat resting 2D transthoracic echo in 6 months. The patient voiced understanding. Further recommendations pending review of stress testing. ERROL
[2016-12-22 03:36] VITALS: BP 96/58; PULSE 83; TEMP 36.6; O2SAT 98
[2016-12-22 07:43] VITALS: BP 106/62; PULSE 81; TEMP 37; O2SAT 97
--- NOTE | 2016-12-22 09:24 | Progress Note ---
Internal Med Progress Note Date of Service: Dec 22, 2016. Provider Documentation: SUBJECTIVE: The patient was seen and examined on 12/18/16 as well S/P YOKO No significant Aortic Stenosis Stress test in AM 12/22/16 No More chest pain on ambulation OBJECTIVE: Vital Signs-as noted below Exam: General-No distress at rest Hemodynamically stable Eyes-normal ENT-normal Neck-Supple Lungs-Clear to auscultate bilaterally ,no tenderness locally Heart-Regular,no murmur appreciated Abdomen-Benign,no masses,bowel sound present Extremities-No edema Neuro-AAOx3 Lab data as noted below. ASSESSMENT & PLAN: Chest pain No significant Risk factors No EKG and or Ella changes -No ACS Still has some left sided chest discomfort No associated symptoms Continue current medications CTA is negative for any Dissection S/P YOKO-no significant Aortic Stenosis Asymptomatic Awaiting Stress test -if negative will discharge home today Moderate to Severe Aortic Stenosis Diagnosed ECHO during this Admission ECHO:: * The left ventricular wall motion is normal. * There is mild concentric left ventricular hypertrophy. * Ejection Fraction = 55-60%. * There is severe focal calcification of the aortic valve * The presence of a bicuspid aortic valve cannot be excluded. * The 2D appearance of the valve and the Doppler assessment are discordant. * Doppler assessment suggests the presence of moderate aortic stenosis. * Severe aortic stenosis is suggested based on 2D appearance as well as the continuity equation. * The aortic root is mildly dilated. * The proximal ascending aorta was not visualized. Chest pain could be due to Cardiology Consult and probable further Cardiac evaluation Appreciate Cardiology input YOKO tomorrow -not showing significant Will go for Stress Test tomorrow 12/22/16 BPH-hold saw edward at this time Denies any symptoms DVT proph-Lovenox. Full Code DISPOSITION Stress test today and likely home after that Vital Signs: Date Time Temp Pulse Resp B/P Pulse Ox O2 Delivery O2 Flow Rate FiO2 12/22/16 08:00 Room Air 12/22/16 07:43 37.0 81 20 106/62 97 Room Air 12/22/16 04:04 Room Air 12/22/16 03:36 36.6 83 18 96/58 98 Room Air 12/22/16 00:00 Room Air 12/21/16 23:47 36.6 81 18 115/69 95 Room Air 12/21/16 20:13 36.9 100 20 110/67 96 Room Air 12/21/16 20:00 94 Room Air 12/21/16 16:06 36.7 107 20 114/68 94 Room Air 12/21/16 16:00 Room Air 12/21/16 12:00 Room Air 12/21/16 11:36 36.4 83 16 105/59 96 Room Air 12/21/16 11:10 86 12/21/16 11:05 81 12/21/16 11:00 84 12/21/16 11:00 36.4 80 20 109/67 98 Room Air 12/21/16 10:55 88 12/21/16 10:44 107/63 12/21/16 10:39 111/67 12/21/16 10:34 114/67 12/21/16 10:29 111/63 12/21/16 10:26 36.6 22 111/63 100 Nasal Cannula 2 12/21/16 10:25 85 14 12/21/16 10:25 85 14 99 12/21/16 10:24 104/65 12/21/16 10:20 90 15 99 12/21/16 10:20 89 15 12/21/16 10:19 112/58 12/21/16 10:15 89 16 12/21/16 10:15 89 16 100 12/21/16 10:14 88 16 111/57 99 12/21/16 10:14 111/57 12/21/16 10:09 93 16 104/68 99 12/21/16 10:09 104/68 12/21/16 10:08 36.2 95 18 108/64 100 Mask 10 12/21/16 10:04 108/71 12/21/16 10:04 95 18 108/71 100
[2016-12-22] MEDS ORDERED: PERFLUTREN LIPID MICROSPHERE (DEFINITY) IV ONE (10:31)
[2016-12-22] MEDS ORDERED: ASPEC81 PO (10:52)
--- NOTE | 2016-12-22 10:55 | Discharge Instructions ---
Discharge Instructions Admission Reason for Admission: Aortic Stenosis, Atypical Chest Pain Discharge Discharge Diagnosis / Problem: Chest pain-No ACS,Bicuspid Aortic Valve, Negative stess test Discharge Goals Goal(s): Prevent Disease Progression Activity Recommendations Activity Limitations: resume your previous activity . Instructions / Follow-Up Instructions / Follow-Up Dr Roldan on 12/30/16 on 11:10 AM .Cardiology will call for appointment Current Hospital Diet Patient's current hospital diet: Regular Diet Discharge Diet Recommended Diet: AHA Diet (Heart Healthy) Procedures Procedures Performed: Trans-esophageal echocardiogram Pending Studies Studies pending at discharge: no Laboratory Results Lipid Panel Test 12/18/16 04:55 Range/Units Triglycerides Level 89 0-150 mg/dl Cholesterol Level 155 0-200 mg/dl HDL Cholesterol 59 mg/dl Cholesterol/HDL Ratio 2.6 LDL Cholesterol, Calculated 78 mg/dl Medical Emergencies . Who to Call and When: Medical Emergencies: If at any time you feel your situation is an emergency, please call 911 immediately. . Non-Emergent Contact Non-Emergency issues call your: Primary Care Provider . Past History Medical & Surgical History: (1) Aortic stenosis (2) Atypical chest pain (3) Osteoarthritis (4) BPH (benign prostatic hypertrophy) (5) H/O wisdom tooth extraction . "Provider Documentation" section prepared by Anna Saunders. VTE Core Measure Inpt VTE Proph given/why not?: Enoxaparin (Lovenox)SQ
[2016-12-22 11:23] VITALS: BP 106/62; PULSE 81; TEMP 37; O2SAT 97
--- NOTE | 2016-12-22 16:21 | EXERCISE STRESS ECHO ---
*NOTICE TO RECEIVING LIBERTARIAN AGENCY This information is strictly Confidential and protected under [place] law. [place] law prohibits you from making any further disclosure of this information unless further disclosure is expressly permitted by the written consent of the person to whom it pertains or is authorized by law. A general authorization for the release of medical or other information is not sufficient for this purpose. Hospital accepts no responsibility if the information is made available to any other person, INCLUDING THE PATIENT. Interpretation Summary * Name: LEOAL LABOY Study Date: 12/22/2016 09:22 AM BP: 101/62 mmHg * Patient Location: C.2T\S\E220\S\1 HR: 71 * : 1955 (M/d/yyyy) Gender: Male Height: 72 in * Age: 61 yrs Ethnicity: [place] Weight: 154 lb * Ordering Physician: Denys Blank * Referring Physician: Self, Referred * Performed By: Lucy Dailey RDCS * * Reason For Study: CHEST PAIN * BSA: 1.9 m2 * History: CHEST PAIN * STRESS STUDY: Normal exercise stress echocardiogram. No echocardiographic or ECG evidence of myocardial ischemia having achieved heart rate adequate for diagnostic purposes. * Exercise capacity is above average. Procedure Details * A contrast injection of Definity was performed to improve assessment of LV function. * Contrast was injected into an intravenous site in the left arm. * One vial of Definity ultrasound contrast was diluted in normal saline to a total volume of 10 ml. A total of '4' ml of solution was administered during imaging. * Lot # [id number] of Definity utilized for procedure. * Expiration date NOV 11. * The attending nurse who injected the contrast agent was GLORIA QUARLES RN. Left Ventricle * The left ventricle is normal in size. * There is no thrombus. * There is normal left ventricular wall thickness. * The left ventricular ejection fraction increases normally with stress. The left ventricular end-systolic cavity size reduces post-stress (normal response). The left ventricular wall motion with stress is normal. * Ejection Fraction = 60-65%. * Resting wall motion: Normal. Stress wall motion: Appropriate increase in Left ventricular systolic function and decrease in cavity size. No stress induced segmental wall motion abnormalities. Stress Parameters * The baseline ECG displays normal sinus rhythm. * Stress ECG: No ST changes. No arrhythmias. * The stress portion of this study was personally supervised by the undersigned interpreting physician. * Rest heart rate was '71' BPM. * Rest blood pressure was '101/62' * Maximum heart rate achieved was 176 bpm. * Maximum heart rate was 111 % of maximum age-predicted heart rate. * Maximum blood pressure was '151/51' * Total exercise time was '9:24' * Maximum exercise MET level achieved was '10.70' METS * Maximum treadmill speed was '4.20' miles per hour. * Maximum treadmill elevation was '16.00'% grade. * Exercise was terminated due to 'ACHIEVING TARGET HR' * The patient exhibited fatigue during exercise. * Normal blood pressure response to exercise. * Exercise was stopped due to fatigue.
--- NOTE | 2016-12-24 11:47 | Discharge Summary ---
Discharge Summary Date of Service Dec 24, 2016. Discharge Summary Admission Date: Dec 18, 2016 at 16:13 Discharge Date: Dec 22, 2016 Discharge Disposition: Home Principal Diagnosis: Atypical Chest pain-No ACS,Bicuspid Aortic Valve,Negative stress test Secondary Diagnoses/Problems: Please see H&P Procedures: Cardiac Cath,YOKO Consultations: Cardiology Medication Reconciliation New Medications: Aspirin (Aspirin EC Low Dose) 81 Mg Ectab 81 MG PO QAM for 30 Days, #30 Continued Medications: Misc Natural Products ([place]aw [place]) 1 Cap Cap 1 CAP PO BID Admission Information HPI (per Admitting provider): The patient is a 61 yoM with no history of CAD nor risk factors aside from age, who presents to the ER with 3 days of chest pain that became more intense today. He does not remember what he was doing when the pain began but it was described as a tightness in his L anterior chest wall without radiation, and will become intermittently more intense, although there are no obvious triggers for this. The intense episodes last <30 mins. He reports associated symptoms including some SOB, lightheadedness, palpitations, and numbness in his hands ( however, this is chronic). He denies any nausea, vomiting, diarrhea, abdominal pain, or blood per rectum. He is a former smoker but has quit. Past Medical/Surgical History Medical Problems: (1) BPH (benign prostatic hypertrophy) Status: Chronic Family History Parkinson's disease No h/o CAD Social History Smoking Status: Former Smoker Smokeless Tobacco Use: No Alcohol Use: none Drug Use: none Marital Status: Housing status: lives with family, lives with significant other Occupational Status: employed Immunizations History of Influenza Vaccine: Yes Influenza Vaccine Date: Jul 25, 2016 History of Tetanus Vaccine?: Yes Tetanus Immunization Date: Jan 15, 2009 History of Pneumococcal: Yes Pneumococcal Date: Jan 15, 2009 History of Hepatitis B Vaccine: Unknown Multi-Drug Resistant Organisms History of MDRO: No Allergies Coded Allergies: No Known Allergies (Verified , 12/18/16) Home Medications Scheduled Misc Natural Products ([place]aw [place]), 1 CAP PO BID Review of Systems All systems reviewed and negative except as indicated on HPI above. Physical Exam Vital Signs Date Time Temp Pulse Resp B/P Pulse Ox O2 Delivery O2 Flow Rate FiO2 12/18/16 06:59 69 18 116/60 97 Room Air 12/18/16 06:11 70 20 95/58 96 Room Air 12/18/16 05:06 98 Room Air 12/18/16 05:06 98 Room Air 12/18/16 04:55 74 12/18/16 04:53 97 Room Air 12/18/16 04:41 36.6 72 16 112/69 96 Room Air GEN: WNWD, in no acute distress, alert and appropriate HEENT: NC/AT, PERRL, normal sclerae, pharynx non-acute, MMM CARDIO: reg rate, S1/2 heard without m/g/r, no TTP on anterior chest wall. LUNGS: CTA bilaterally, no crackles, rales or wheezes, good diaphragmatic excursion ABD: soft, non-tender, non-distended, no rebound or guarding EXTREMITY: no LE swelling or edema, extremities are warm and well-perfused NEURO: CN 2-12 grossly intact, no gross focal deficits MUSC: 5/5 strength throughout, no focal deficits SKIN: warm and dry Diagnostics Laboratory Results Results Past 24 Hours Test 12/18/16 04:55 12/18/16 05:01 12/18/16 07:01 Range/Units White Blood Count 6.62 4.8-10.8 K/uL Red Blood Count 4.90 4.7-6.1 M/uL Hemoglobin 14.4 14.0-18.0 g/dL Hematocrit 42.2 42-52 % Mean Corpuscular Volume 86.1 80-100 fL Mean Corpuscular Hemoglobin 29.4 25-34 pg Mean Corpuscular Hemoglobin Concent 34.1 32-36 g/dl Platelet Count 223 130-400 K/uL Mean Platelet Volume 9.6 7.4-10.4 fL Neutrophils (%) (Auto) 59.8 % Lymphocytes (%) (Auto) 27.2 % Monocytes (%) (Auto) 11.0 % Eosinophils (%) (Auto) 1.5 % Basophils (%) (Auto) 0.3 % Neutrophils # (Auto) 3.96 1.4-6.5 K/uL Lymphocytes # (Auto) 1.80 1.2-3.4 K/uL Monocytes # (Auto) 0.73 0.11-0.59 K/uL Eosinophils # (Auto) 0.10 0-0.5 K/uL Basophils # (Auto) 0.02 0-0.2 K/uL RDW Standard Deviation 41.7 36.4-46.3 fL RDW Coefficient of Variation 13.3 11.5-14.5 % Immature Granulocyte % (Auto) 0.2 % Immature Granulocyte # (Auto) 0.01 0.00-0.02 K/uL Sodium Level 143 136-145 mmol/L Potassium Level 3.2 3.5-5.1 mmol/L Chloride Level 105 98-107 mmol/L Carbon Dioxide Level 29 21-32 mmol/L Anion Gap 9.0 3-11 mmol/L Blood Urea Nitrogen 16 7-18 mg/dl Creatinine 0.98 0.60-1.40 mg/dl Est Creatinine Clear Calc Drug Dose 82.9 ml/min Estimated GFR () 95.4 Estimated GFR (Non- 82.3 BUN/Creatinine Ratio 16.3 10-20 Random Glucose 88 70-99 mg/dl Calcium Level 8.3 8.5-10.1 mg/dl Total Bilirubin 0.4 0.2-1 mg/dl Direct Bilirubin 0.1 0-0.2 mg/dl Aspartate Amino Transf (AST/SGOT) 10 15-37 U/L Alanine Aminotransferase (ALT/SGPT) 19 12-78 U/L Alkaline Phosphatase 72 45-117 U/L Total Creatine Kinase 119 39-308 U/L Creatine Kinase MB 1.7 0.5-3.6 ng/ml Creatine Kinase MB Ratio 1.4 0-3.0 Total Protein 6.9 6.4-8.2 gm/dl Albumin 3.8 3.4-5.0 gm/dl Lipase 134 73-393 U/L Bedside Troponin I 0.000 0-0.045 ng/ml CXR normal Normal EKG (SR 67, no ST changes or Q waves) Impression Assessment and Plan 61 yo M with age as his only RF for CAD presents with 3 days of atypical chest pain 1. 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 Trend enzymes, ASA/statin, lipid panel, monitor on telemetry. GI cocktail to treat his tightness; nitro given in the ER did not cause pain to completely go away. PE unlikely without hypoxia, increased work of breathing or risk factors. No infectious symptoms and CXR is negative making pneumonia less likely. 2. BPH-hold saw edward at this time 3. Hypokalemia-replace. DVT proph-Lovenox. Full Code Dispo-to telemetry floor Jade Royal DO [facility] Hospitalist. Level of Care Telemetry Resuscitation Status FULL RESUSCITATION VTE Prophylaxis VTE Risk Assessment Done? Y/N: Yes Risk Level: Moderate Given or contraindicated: Enoxaparin (Lovenox)SQ <Electronically signed by Jade Royal DO> Signed: 12/18/16 0742 Physical Exam (per Admitting): GEN: WNWD, in no acute distress, alert and appropriate HEENT: NC/AT, PERRL, normal sclerae, pharynx non-acute, MMM CARDIO: reg rate, S1/2 heard without m/g/r, no TTP on anterior chest wall. LUNGS: CTA bilaterally, no crackles, rales or wheezes, good diaphragmatic excursion ABD: soft, non-tender, non-distended, no rebound or guarding EXTREMITY: no LE swelling or edema, extremities are warm and well-perfused NEURO: CN 2-12 grossly intact, no gross focal deficits MUSC: 5/5 strength throughout, no focal deficits SKIN: warm and dry Hospital Course Atypical Chest pain No significant Risk factors No EKG and or Ella changes -No ACS Still has some left sided chest discomfort No associated symptoms Continue current medications CTA is negative for any Dissection S/P YOKO-no significant Aortic Stenosis Asymptomatic Awaiting Stress test -if negative will discharge home today Moderate to Severe Aortic Stenosis Diagnosed ECHO during this Admission ECHO:: * The left ventricular wall motion is normal. * There is mild concentric left ventricular hypertrophy. * Ejection Fraction = 55-60%. * There is severe focal calcification of the aortic valve * The presence of a bicuspid aortic valve cannot be excluded. * The 2D appearance of the valve and the Doppler assessment are discordant. * Doppler assessment suggests the presence of moderate aortic stenosis. * Severe aortic stenosis is suggested based on 2D appearance as well as the continuity equation. * The aortic root is mildly dilated. * The proximal ascending aorta was not visualized. Chest pain could be due to Cardiology Consult and probable further Cardiac evaluation Appreciate Cardiology input YOKO tomorrow -not showing significant Will go for Stress Test tomorrow 12/22/16 BPH-hold saw [place] at this time Denies any symptoms DVT proph-Lovenox. Full Code DISPOSITION Stress test today and likely home after that Total time spent on discharge = 35 minutes This includes examination of the patient, discharge planning, medication reconciliation, and communication with other providers. Discharge Instructions Admission Reason for Admission: Aortic Stenosis, Atypical Chest Pain Discharge Discharge Diagnosis / Problem: Chest pain-No ACS,Bicuspid Aortic Valve, Negative stess test Discharge Goals Goal(s): Prevent Disease Progression Activity Recommendations Activity Limitations: resume your previous activity . Instructions / Follow-Up Instructions / Follow-Up Dr Roldan on 12/30/16 on 11:10 AM .Cardiology will call for appointment Current Hospital Diet Patient's current hospital diet: Regular Diet Discharge Diet Recommended Diet: AHA Diet (Heart Healthy) Procedures Procedures Performed: Trans-esophageal echocardiogram Pending Studies Studies pending at discharge: no Laboratory Results Lipid Panel Test 12/18/16 04:55 Range/Units Triglycerides Level 89 0-150 mg/dl Cholesterol Level 155 0-200 mg/dl HDL Cholesterol 59 mg/dl Cholesterol/HDL Ratio 2.6 LDL Cholesterol, Calculated 78 mg/dl Medical Emergencies . Who to Call and When: Medical Emergencies: If at any time you feel your situation is an emergency, please call 911 immediately. . Non-Emergent Contact Non-Emergency issues call your: Primary Care Provider . Past History Medical & Surgical History: (1) Aortic stenosis (2) Atypical chest pain (3) Osteoarthritis (4) BPH (benign prostatic hypertrophy) (5) H/O wisdom tooth extraction . "Provider Documentation" section prepared by Anna Saunders. VTE Core Measure Inpt VTE Proph given/why not?: Enoxaparin (Lovenox)SQ <Electronically signed by Anna Saunders M.D.> Signed: 12/22/16 4400 Additional Copies To Deo Crabtree M.D.
--- NOTE | 2016-12-25 07:05 | EDITING REQUIRED CODING QUERY ---
CHEST PAIN To promote full compliance with coding requirements relating to patient care physician participation is requested in all cases of hospice case manager uncertainty. Please assist us with the question(s) below: Please list a more specific chest pain diagnosis or cause of chest pain if known by placing an X within the parenthesis (x): ( +) Atypical Chest Pain ( ) Chest Wall Pain ( ) Midsternal Chest Pain ( ) Musculoskeletal Chest Pain ( ) Pleuritic Chest Pain ( ) Substernal Chest Pain ( ) Costochondral Chest Pain ( ) Other (please Specify) ( ) Unable to Determine Thank you DONAVAN Childers CCS
== END 2016-12-22 13:22 | disposition home or self-care (01) | DRG 313 ==
LOC: ENRESERVTM → ENRESERVDT → C.EDB 04:40 → C.2T 07:06 → OBSVTOIN 16:13
PROVIDERS: ADMIT Hospitalist; ATTEND Internal Medicine
DX: R07.89 Other chest pain (principal); Z87.891 Personal history of nicotine dependence; N40.0 Benign prostatic hyperplasia without lower urinary tract symptoms; E87.6 Hypokalemia

== ENCOUNTER 2019-07-27 21:28 | Inpatient (IN) ==
--- NOTE | 2019-07-27 21:57 | Emergency Department Note ---
History of Present Illness General Chief complaint: Respiratory Problems History of Present Illness Maximum Pain Intensity: 0 This 63-year-old presents to the ER complaining of dyspnea Location: Chest Quality: Hard to breathe Severity: Moderate Duration: This afternoon Timing: Started shortly after his thoracentesis at [facility] today Context: Symptoms got worse and patient came in Modifying factors: better with rest; worse with activity Patient had aortic valve replacement [address] [facility]. He is currently on Coumadin. He had a pleural effusion and had a scheduled thoracentesis today. They discharged him. Patient states since he got home and he started coughing and feeling more short of breath. Patient denies chest pain, abdominal pain, fevers, leg pain or swelling. Home Medications Home Medications Medication Instructions Recorded Confirmed Type acetaminophen [Tylenol Extra 500 mg PO Q6H PRN 07/27/19 07/27/19 History Strength] aspirin 81 mg PO QAM 07/27/19 07/27/19 History famotidine 20 mg PO BID 07/27/19 07/27/19 History metoprolol tartrate 12.5 mg PO BID 07/27/19 07/27/19 History warfarin [Jantoven] 4 mg PO QPM 07/27/19 07/27/19 History Allergies Allergy/AdvReac Type Severity Reaction Status Date / Time No Known Allergies Allergy Mild Verified 04/06/19 08:09 Past Med/Surg History Medical History BPH (benign prostatic hyperplasia) Bicuspid aortic valve Severe aortic stenosis Social History Beliefs That Will Affect Care: None Current Living Situation: Spouse Feels Safe at Home: Yes Smoking Status: Former smoker Hx Alcohol Use: No Hx Substance Use: No Review of Systems All systems reviewed & are unremarkable except as noted in HPI & below Physical Exam Vital Signs Vital Signs - 24 hr 07/27/19 21:33 07/27/19 21:44 07/27/19 21:45 Temperature 37.1 C Temperature Source Oral Sepsis Recent Fever Within 48 Hours No Sepsis Action Taken by Nursing No Action Required Oxygen Flow Rate - Titration Pulse Oximetry Post Tiitration Pulse Rate 107 H Pulse Rate [Right] Pulse Rhythm Regular Pulse Rhythm [Right] Pulse Strength Normal Pulse Strength [Right] Respiratory Rate 20 Respiratory Effort / Characteristics Non-Labored Spontaneous Respiratory Depth Normal Respiratory Pattern Regular Blood Pressure 126/65 Blood Pressure [Right Arm] Blood Pressure Mean 85 Blood Pressure Mean [Right Arm] Blood Pressure Position Sitting Blood Pressure Position [Right Arm] Pulse Oximetry 83 L 83 L 90 Oxygen Delivery Method Room Air Room Air Nasal Cannula Oxygen Flow Rate 6 07/27/19 22:54 07/27/19 23:23 07/27/19 23:32 Temperature Temperature Source Sepsis Recent Fever Within 48 Hours Sepsis Action Taken by Nursing Oxygen Flow Rate - Titration 15 Pulse Oximetry Post Tiitration 92 Pulse Rate Pulse Rate [Right] 102 H 107 H Pulse Rhythm Pulse Rhythm [Right] Regular Regular Pulse Strength Pulse Strength [Right] Normal Normal Respiratory Rate 24 24 Respiratory Effort / Characteristics Non-Labored Spontaneous Non-Labored Spontaneous Respiratory Depth Normal Normal Respiratory Pattern Blood Pressure Blood Pressure [Right Arm] 122/75 123/77 Blood Pressure Mean Blood Pressure Mean [Right Arm] 90 92 Blood Pressure Position Blood Pressure Position [Right Arm] Sitting Pulse Oximetry 87 L 88 L 91 Oxygen Delivery Method Nasal Cannula Non-rebreather Non-rebreather Oxygen Flow Rate 8 8 15 07/28/19 01:13 Temperature Temperature Source Sepsis Recent Fever Within 48 Hours Sepsis Action Taken by Nursing Oxygen Flow Rate - Titration Pulse Oximetry Post Tiitration Pulse Rate Pulse Rate [Right] 97 H Pulse Rhythm Pulse Rhythm [Right] Regular Pulse Strength Pulse Strength [Right] Normal Respiratory Rate 24 Respiratory Effort / Characteristics Non-Labored Spontaneous Respiratory Depth Normal Respiratory Pattern Blood Pressure Blood Pressure [Right Arm] 111/61 Blood Pressure Mean Blood Pressure Mean [Right Arm] 77 Blood Pressure Position Blood Pressure Position [Right Arm] Sitting Pulse Oximetry 94 Oxygen Delivery Method Non-rebreather Oxygen Flow Rate 15 VITALS: Vitals are noted on the nurse's note and reviewed by myself. Vital signs hypoxic. GENERAL: White male on oxygen coughing, in no acute distress, nondiaphoretic, well-developed well-nourished. SKIN: The skin was without rashes, erythema, edema, or bruising. There is no tenting of the skin. Capillary reflex less than 2 seconds. HEAD: Normocephalic atraumatic. EARS: External auditory canals clear, tympanic membranes pearly greco without erythema or effusion bilaterally. EYES: Pupils equal round and reactive to light and accommodation. Conjunctivae without injection, sclerae without icterus. Extraocular movements intact. NOSE: Patent, turbinates without inflammation or discharge. m MOUTH: Mucous membranes moist. Pharynx without erythema or exudate. Uvula midline. Airway patent. Tongue does not deviate. NECK: Supple without nuchal rigidity. No lymphadenopathy. No thyromegaly. Cervical spine is nontender. No JVD. HEART: Regular rate and rhythm m LUNGS: Decreased breath sounds in the left lower lung, bibasilar rales. No retractions or accessory muscle use. ABDOMEN: Positive bowel sounds x 4. Normal tympanic percussion. Soft, nontender, without masses or organomegaly. Garzon sign negative. No guarding or rebound tenderness. No CVA tenderness MUSCULOSKELETAL: No muscle atrophy, erythema, or edema noted. NEURO: Patient was alert and oriented to person place and time. Normal sensation to light and sharp touch. No focal neurological deficits. Course Administered Medications Ioversol (Optiray 320 125ml) 118 ml IV ONCE PRN PRN Reason: Interaction Checking Stop: 07/31/19 22:36 Last Admin: 07/27/19 22:37 Dose: 118 ml Documented by: [id number] Discontinued Medications Piperacillin Sod/Tazobactam Sod (Zosyn) 4.5 gm in 120 mls @ 240 mls/hr IV NOW ONE Stop: 07/27/19 23:24 Last Infusion: 07/27/19 23:36 Dose: 0 mls/hr Documented by: [id number] Admin: 07/27/19 23:06 Dose: 240 mls/hr Documented by: [id number] Ondansetron HCl (Zofran) 4 mg IV NOW STA Stop: 07/27/19 22:56 Last Admin: 07/27/19 23:06 Dose: 4 mg Documented by: [id number] Medical Decision Making Medical Records Attestation: I reviewed the patient's medical records. Home Medications Current Medication List: was personally reviewed by me Laboratory Data Attestation: I reviewed the patient's lab results. Result diagrams: 07/27/19 21:38 07/27/19 21:38 Lab Results 07/27/19 07/27/19 07/27/19 Range/Units 21:38 21:38 21:38 WBC 16.26 H (4.8-10.8) K/uL RBC 4.06 L (4.7-6.1) M/uL Hgb 12.0 L (14.0-18.0) g/dL Hct 35.8 L (42-52) % MCV 88.2 (80-100) fL MCH 29.6 (25-34) pg MCHC 33.5 (32-36) g/dL RDW Std Deviation 45.2 (36.4-46.3) fL RDW Coeff of Daphne 14.0 (11.5-14.5) % Plt Count 613 H (130-400) K/uL MPV 9.2 (7.4-10.4) fL Immature Gran % (Auto) 0.5 % Neut % (Auto) 87.0 % Lymph % (Auto) 5.7 % [place] % (Auto) 5.8 % Eos % (Auto) 0.9 % Baso % (Auto) 0.1 % Immature Gran # (Auto) 0.08 H (0.00-0.02) K/uL Neut # (Auto) 14.14 H (1.4-6.5) K/uL Lymph # (Auto) 0.93 L (1.2-3.4) K/uL [place] # (Auto) 0.95 H (0.11-0.59) K/uL Eos # (Auto) 0.15 (0-0.5) K/uL Baso # (Auto) 0.01 (0-0.2) K/uL PT 14.1 H (9.0-12.0) Seconds INR 1.4 H (0.9-1.1) APTT 30.2 (21.0-31.0) Seconds PTT Ratio 1.1 Sodium 134 L (136-145) mmol/L Potassium 3.8 (3.5-5.1) mmol/L Chloride 101 (98-107) mmol/L Carbon Dioxide 25 (21-32) mmol/L Anion Gap 9.0 (3-11) BUN 18 (7-18) mg/dl Creatinine 0.99 (0.6-1.4) mg/dl Est Cr Clr Drug Dosing 77.6 ml/min Est GFR ( Amer) 92.9 Est GFR (Non-Af Amer) 80.2 BUN/Creatinine Ratio 18.3 (10-20) Glucose 160 H (70-99) mg/dl Lactate (0.4-2.0) mmol/L Calcium 8.5 (8.5-10.1) mg/dl Magnesium 2.1 (1.8-2.4) mg/dl Total Bilirubin 0.4 (0.2-1) mg/dl AST 19 (15-37) U/L ALT 36 (12-78) U/L Alkaline Phosphatase 95 (45-117) U/L Troponin I 0.023 (0-0.045) ng/ml Total Protein 7.1 (6.4-8.2) gm/dl Albumin 2.5 L (3.4-5.0) gm/dl Globulin 4.6 H (2.5-4.0) gm/dl Albumin/Globulin Ratio 0.5 L (0.9-2) 07/27/19 Range/Units 22:22 WBC (4.8-10.8) K/uL RBC (4.7-6.1) M/uL Hgb (14.0-18.0) g/dL Hct (42-52) % MCV (80-100) fL MCH (25-34) pg MCHC (32-36) g/dL RDW Std Deviation (36.4-46.3) fL RDW Coeff of Daphne (11.5-14.5) % Plt Count (130-400) K/uL MPV (7.4-10.4) fL Immature Gran % (Auto) % Neut % (Auto) % Lymph % (Auto) % [place] % (Auto) % Eos % (Auto) % Baso % (Auto) % Immature Gran # (Auto) (0.00-0.02) K/uL Neut # (Auto) (1.4-6.5) K/uL Lymph # (Auto) (1.2-3.4) K/uL [place] # (Auto) (0.11-0.59) K/uL Eos # (Auto) (0-0.5) K/uL Baso # (Auto) (0-0.2) K/uL PT (9.0-12.0) Seconds INR (0.9-1.1) APTT (21.0-31.0) Seconds PTT Ratio Sodium (136-145) mmol/L Potassium (3.5-5.1) mmol/L Chloride (98-107) mmol/L Carbon Dioxide (21-32) mmol/L Anion Gap (3-11) BUN (7-18) mg/dl Creatinine (0.6-1.4) mg/dl Est Cr Clr Drug Dosing ml/min Est GFR ( Amer) Est GFR (Non-Af Amer) BUN/Creatinine Ratio (10-20) Glucose (70-99) mg/dl Lactate 1.7 (0.4-2.0) mmol/L Calcium (8.5-10.1) mg/dl Magnesium (1.8-2.4) mg/dl Total Bilirubin (0.2-1) mg/dl AST (15-37) U/L ALT (12-78) U/L Alkaline Phosphatase (45-117) U/L Troponin I (0-0.045) ng/ml Total Protein (6.4-8.2) gm/dl Albumin (3.4-5.0) gm/dl Globulin (2.5-4.0) gm/dl Albumin/Globulin Ratio (0.9-2) Imaging Data Attestation: I personally reviewed and interpreted this imaging study as follows: MDM Narrative Prior records/ancillary studies reviewed. Triage Nursing notes reviewed. Additional history obtained from the nursing. The patient's history was concerning for respiratory difficulties. Differential diagnosis: Etiologies such as infections, reactive airway disease, pneumonia, pneumothorax, COPD, CHF, cardiac ischemia, pulmonary embolism, musculoskeletal, gastrointestinal, as well as others were entertained. Physical examination: As above. ER treatment provided: Nasal cannula On reassessment the patient felt better. Diagnostic interpretation by me: The electrocardiogram was negative for acute ischemic or pathologic change. Normal sinus, incomplete right bundle branch block, no acute ST-T wave changes. Impression sinus tachycardia with an incomplete right bundle branch block interpreted by myself EKG ordered for dyspnea I think arrhythmia is unlikely. EKG shows normal sinus rhythm with no interval abnormalities such as QT prolongation or WPW. There are no findings to suggest Brugada syndrome. Cardiac monitoring in the emergency department reveals no tachycardic or bradycardic dysrhythmia. Hypertrophic cardiomyopathy was considered but there are no clear historical elements pointing toward this. EKG is not suggestive. The QRS voltage is not extremely large and there are no suggestive Q waves. The labs revealed leukocytosis, mild anemia, subtherapeutic INR Imaging studies: XR chest 1V portable CLINICAL HISTORY: Dyspnea COMPARISON STUDY: 04/06/2019 FINDINGS: There is radiographic evidence of emphysema. There are bilateral pleural effusions. There are left lower lobe pulmonary airspace opacities suspicious for pneumonia. Minimal airspace opacities are also present within the right midlung zone and right lung base. There is evidence for interval midline sternotomy. There is a nonspecific vertically oriented metallic structure projected over the left paraspinal region.[ IMPRESSION: 1. Interval midline sternotomy 2. Bilateral pleural effusions 3. Bilateral asymmetric airspace opacities left greater than right suspicious for pneumonia. Clinical and radiographic follow-up is recommended Electronically signed by: Harshad Dumas M.D. 07/27/2019 9:58 PM Dictated: [id number] Transcribed: [id number] Patient was unable to tolerate the CT of his chest. He refused this test. I did obtain the records from [facility] and reviewed them about the patient's Thoracentesis today. His cardiothoracic surgeon is Dr. Prado at [facility]. Consultation: A consultation was placed with Dr Rodarte hospitalist. The case was discussed and diagnostics were reviewed. The patient was evaluated in the ER for further treatment. CURB Score: Confusion: 0 Urea (BUN > 19): 0 Respiratory Rate (>30/min): 0 Blood Pressure: Diastolic <60 or Systolic <90 0 Age (>= 65) 0 Total (0-1 low risk, 2-5 high risk): 0 This appears to be consistent with pneumonia, pleural effusions and hypoxemia. Patient started antibiotics. Medicine was consulted. Patient is agreeable treatment plan of admission. Patient just finished Cipro. He is hypoxic. Patient does need to be admitted for pneumonia and pleural effusions. By the evaluation outlined above emergent etiologies such as CHF, cardiac ischemia, pulmonary embolism, reactive airway disease, pneumothorax, musculoskeletal, as well as others were deemed relatively unlikely. The pt informed about the findings as listed above. All questions were answered and pleased with the treatment. Case reviewed with my attending The chart was completed utilizing [employer] voice recognition software. Grammatical errors, random word insertions, pronoun errors, and incomplete sentences are an occassional consequence of this system due to software limitations, ambient noise, and hardware issues. Any formal questions or concerns about the content, text, or information contained within the body of this dictation should be directly addressed to the physician senior agricultural assistant for clarification. Impression & Plan Pneumonia, Pleural effusion, Hypoxemia Discharge Plan Visit Data Chief Complaint: Respiratory Problems ED Provider: Sameer Ramon ED Midlevel Provider: Nano Alicea Discharge Problem: Pneumonia, Pleural effusion, Hypoxemia Patient Disposition: Admitted As Inpatient Condition: Fair Forms Stand Alone Forms: [employer] Prescriptions Prescriptions: No Action aspirin 81 mg Tablet,Delayed Release (Dr/Ec) 81 mg PO QAM RF: 0 acetaminophen [Tylenol Extra Strength] 500 mg Tablet 500 mg PO Q6H PRN (Reason: Pain) RF: 0 famotidine 20 mg tablet 20 mg PO BID RF: 0 warfarin [Jantoven] 2 mg tablet 4 mg PO QPM RF: 0 metoprolol tartrate 25 mg tablet 12.5 mg PO BID RF: 0 Referrals Referrals: Omi Pedroza DO [Primary Care Provider] - Discharge Problem: Pneumonia Qualifiers: Pneumonia type: due to unspecified organism Laterality: bilateral Lung location: unspecified part of lung Qualified Code(s): J18.9 - Pneumonia, unspecified organism
--- NOTE | 2019-07-27 21:59 | XRay Report ---
XR chest 1V portable CLINICAL HISTORY: Dyspnea COMPARISON STUDY: 04/06/2019 FINDINGS: There is radiographic evidence of emphysema. There are bilateral pleural effusions. There a re left lower lobe pulmonary airspace opacities suspicious for pneumonia. Minimal airspace opacities are also present within the right midlung zone and right lung base. There is evidence for interval mi dline sternotomy. There is a nonspecific vertically oriented metallic structure projected over the le ft paraspinal region.[ IMPRESSION: 1. Interval midline sternotomy 2. Bilateral pleural effusions 3. Bilateral asymmetric airspace opacities left greater than right suspicious for pneumonia. Clinical and radiographic follow-up is recommended Electronically signed by: Harshad Dumas M.D. 07/27/2019 9:58 PM
[2019-07-27 22:05] LABS: Basophils # (auto) 0.01 K/uL (0-0.2); Basophils % (auto) 0.1 %; Eosinophils # (auto) 0.15 K/uL (0-0.5); Eosinophils % (auto) 0.9 %; Hematocrit (blood only) 35.8 % (42-52); Immature Granulocytes # (auto) 0.08 K/uL (0.00-0.02); Immature Granulocytes % (auto) 0.5 %; Lymphocytes # (auto) 0.93 K/uL (1.2-3.4); Lymphocytes % (auto) 5.7 %; Mean Corpuscular Hemoglobin 29.6 pg (25-34); Mean Corpuscular Hgb Conc 33.5 g/dL (32-36); Mean Corpuscular Volume 88.2 fL (80-100); Mean Platelet Volume 9.2 fL (7.4-10.4); Monocytes # (auto) 0.95 K/uL (0.11-0.59); Monocytes % (auto) 5.8 %; Neutrophils # (auto) 14.14 K/uL (1.4-6.5); Platelet Count 613 K/uL (130-400); RDW Standard Deviation 45.2 fL (36.4-46.3); Red Blood Count 4.06 M/uL (4.7-6.1); White Blood Count 16.26 K/uL (4.8-10.8)
[2019-07-27 22:15] LABS: INR 1.4 (0.9-1.1); Partial Thromboplastin Ratio 1.1; Partial Thromboplastin Time 30.2 Seconds (21.0-31.0); Prothrombin Time 14.1 Seconds (9.0-12.0)
[2019-07-27 22:17] LABS: Albumin Level 2.5 gm/dl (3.4-5.0); BUN Creatinine Ratio 18.3 (10-20); Calcium 8.5 mg/dl (8.5-10.1); Creatinine Clr Calc Pharmacy 77.6 ml/min; Est GFR (African American) 92.9; Est GFR (Non-African American) 80.2; Magnesium 2.1 mg/dl (1.8-2.4); Potassium 3.8 mmol/L (3.5-5.1)
[2019-07-27 22:22] LABS: Albumin Globulin Ratio 0.5 (0.9-2); Bilirubin,Total 0.4 mg/dl (0.2-1); Globulin 4.6 gm/dl (2.5-4.0); Total Protein 7.1 gm/dl (6.4-8.2); Troponin I 0.023 ng/ml (0-0.045)
[2019-07-27] MEDS ORDERED: OPTIRAY 320 125ml IV PRN (22:37)
[2019-07-27] MEDS ORDERED: ONDANSETRON INJ 2 MG/ML 2 ML VIAL IV STA (22:55)
[2019-07-27] MEDS ORDERED: PIPERACILLIN/TAZOBACTAM 4.5 GM/120 ML BAG IV ONE (22:55)
[2019-07-27] MEDS ORDERED: PIPERACILL/TAZOBAC CONSULT ACTIVE PRN (22:55)
[2019-07-27] MEDS ORDERED: ACETAMINOPHEN 500 MG TAB PO PRN (23:08)
[2019-07-28] MEDS ORDERED: SODIUM CHLORIDE 0.9% 1000ML 1,000 ML IV ONE (01:15)
[2019-07-28] MEDS ORDERED: VANCOMYCIN CONSULT ACTIVE PRN (02:04)
[2019-07-28] MEDS ORDERED: NITROGLYCERIN SL 0.4 MG/TAB TAB SL PRN (02:04)
[2019-07-28] MEDS ORDERED: LEVALBUTEROL 1.25MG/0.5ML NEB NEB PRN (02:04)
[2019-07-28] MEDS ORDERED: ONDANSETRON INJ 2 MG/ML 2 ML VIAL IV PRN (02:04)
[2019-07-28] MEDS ORDERED: GUAIFENESIN/CODEINE 100MG/10MG 5ML UDC PO PRN (02:04)
[2019-07-28] MEDS ORDERED: ACETAMINOPHEN 325 MG TAB PO PRN ×2 (02:04→17:55)
[2019-07-28] MEDS ORDERED: PIPERACILL/TAZOBAC CONSULT ACTIVE PRN (02:04)
--- NOTE | 2019-07-28 02:20 | History and Physical Report ---
DATE OF ADMISSION: 07/27/2019 CHIEF COMPLAINT: Shortness of breath. HISTORY OF PRESENT ILLNESS: This is a 63-year-old male with past medical history significant for nonrheumatic aortic valve stenosis, status post recent noninvasive aortic valve replacement with pig valve, paroxysmal atrial fibrillation, benign prostatic hypertrophy and osteoarthritis who comes with shortness of breath. On 07/04/2019, he had minimally invasive aortic valve replacement with pig valve for severe aortic stenosis at [facility].. Postoperatively, he was extubated, chest tubes were removed and he experienced bleeding from the left atrial appendage, and was brought back to the Operating Room. A left atrial appendage clip was placed to ligate the bleeding and had atrial fibrillation postoperatively. He was initially started on amiodarone, but it was discontinued due to nausea and he was started on beta-naya and also on heparin and currently he is on Coumadin. Patient had postoperatively follow up with thoracic surgery, he was found to have pleural effusions and his Coumadin was held and he is status post left thoracocentesis on 07/27/2019 was drained about 1500 mL of bloody and serosanguineous at out patient office and he was discharged home. The patient states after going home,he started to have continuous coughing and he was bringing up greenish yellow phlegm and he felt short of breath and he felt panicky and he never had this kind of feeling before so he came here to [facility] Emergency Room and he was saturating 83% on room air and was placed on oxygen initially on 6 liters, currently he is on nonrebreather 15 liters saturating at 94% to 95%, but he is speaking in full sentences and seems to be comfortable. Denies any chest pain. No nausea. No vomiting. No headache. No blurred vision. He has runny nose since his surgery. No earache. No sore throat. Appetite is okay. No abdominal pain. Normal bowel and bladder movements. He was recently started on Cipro for possible prostatitis. No black stools or blood in the stools. No swelling in the legs. No rash. Currently, blood pressure is stable, afebrile and slightly tachycardic. ALLERGIES: No known drug allergies. PAST MEDICAL HISTORY: As mentioned above. PAST SURGICAL HISTORY: Colonoscopy, dental surgery, aortic valve replacement and also left atrial appendage clip placement. MEDICATIONS: Currently on Coumadin as directed, ciprofloxacin 500 mg p.o. b.i.d., Pepcid 20 mg p.o. b.i.d., Toprol-XL 12.5 mg p.o. b.i.d. and aspirin 81 mg p.o. daily. FAMILY HISTORY: Significant for father had Parkinson disease. SOCIAL HISTORY: . Former smoker, quit in 1974. Smoked for 7 years. History of heavy drinking 20 years ago. No drug use. REVIEW OF SYMPTOMS: As per HPI. Rest of review of systems negative. PHYSICAL EXAMINATION: GENERAL: The patient is of moderate build, not in acute distress. VITAL SIGNS: Temperature 37.1, pulse 107, respiratory rate 24, blood pressure 130/77 and oxygen 91% on nonrebreather. HEENT: No pallor. No icterus. Pupils are equal, round and reactive to light. NECK: No JVD. No neck masses. No carotid bruits. CARDIOVASCULAR: S1, S2 heard. Regular rate and rhythm. No significant murmur . No gallop. RESPIRATORY SYSTEM: Normal AP diameter. No accessory muscle use. Mild bibasilar crackles more on the left side. ABDOMEN: Soft. Bowel sounds present. Nontender. No distention. Surgical scars from recent surgery. No drainage seen. CENTRAL NERVOUS SYSTEM: Cranial nerves II through XII grossly intact. Nonfocal. EXTREMITIES: No edema. No erythema. LABORATORY DATA: WBC 16.2, hemoglobin 12, hematocrit 35 and platelets 613. PT 14.1. INR 1.4. APTT 30.2. Sodium 134, potassium 3.8, chloride 101, bicarbonate 25, BUN 18, creatinine 0.99, serum glucose 160, lactate 1.7, calcium 8.5, magnesium 2.1, total bilirubin 0.4, AST 19 and ALT 36. Alkaline phosphatase is 95. Troponin I of 0.023. Chest x-ray shows interval midline sternotomy, bilateral pleural effusions, bilateral asymmetric airspace opacities, left greater than right, suspicious for pneumonia radiological followup is recommended. Electrocardiogram, sinus tachycardia, rate of 108 and incomplete right bundle-branch block. ASSESSMENT AND PLAN: This patient is a 63-year-old male who presents with shortness of breath and found to have pleural effusion and possible pneumonia. 1. Shortness of breath, though the patient is requiring high oxygen, he does not seem to be in distress. No tachypnea, speaking in full sentences. Chest x-ray showed possible pneumonia and bilateral pleural effusion. The patient is status post 1500 mL of bloody and serosanguineous fluid drained out from left thoracocentesis today at [facility] for postoperative complication of his recent noninvasive aortic valve replacement, he went home and comes back with shortness of breath and cough with yellowish phlegm. His white count is elevated at 16, but afebrile. Lactate is normal and blood pressure is okay. We will empirically start him for hospital pneumonia on vancomycin and Zosyn. Follow the sputum culture and blood cultures. Continue oxygen supplementation. Nebs p.r.n. We will also get a chest ultrasound for quantification of pleural effusion and also echocardiogram because he had mild pericardial effusion on recent echocardiogram and consult Pulmonary and Cardiology for further recommendations. Monitor on tele floor. We will try to wean off the oxygen, to oxymask. 2. Severe aortic valve stenosis, recent aortic valve replacement, postoperative complication by left atrial appendage site bleeding and was clipped. Needs followup. We will await cardiac input. Follow echocardiogram. 3. Atrial fibrillation since postoperatively, on Lopressor, on Coumadin, which was held for recent thoracocentesis. We will hold it for now. Follow INR. 4. History of benign prostatic hypertrophy and history of possible prostatitis, on Cipro. Currently, getting I.V. antibiotics. We will follow the urinalysis. 5. Hypertension, on Lopressor with holding parameters. 6. Deep venous thrombosis prophylaxis, sequential compression devices for now. 7. Disposition, admit to tele floor. Expect to discharge home and follow with his primary doctor. Level 1 full code. MTDD
--- NOTE | 2019-07-28 02:32 | Pharmacy Report ---
Pharmacy Abx Initial Consult - Date of Service July 28, 2019 - Pharmacy Dosing Scope Date of Consult: 07/28/19 Consultation requested by: Dr. BURNHAM Pharmacy is consulted to initiate VANCOMYCIN/ZOSYN IV dosing therapy, order appropriate labs and adjust drug dose/frequency. - Subjective The patient is a 63 year old M admitted on 07/28/19 00:58 WITH DIFFICULTY BREATHING S/P THORACENTESIS FOR PLEURAL EFFUSION. - Objective Height: 6 ft Weight: 72.8 kg Vital Signs (Past 12hrs): Vital Signs Temp Pulse Pulse Resp BP BP Pulse Ox 07/28/19 01:48 102 H 22 109/76 95 07/28/19 01:13 97 H 24 111/61 94 07/27/19 23:32 107 H 24 123/77 91 07/27/19 23:23 88 L 07/27/19 22:54 102 H 24 122/75 87 L 07/27/19 21:45 90 07/27/19 21:44 83 L 07/27/19 21:33 37.1 C 107 H 20 126/65 83 L Lab Results (24hrs): Laboratory Tests (24 Hours) 07/27/19 07/27/19 21:38 21:38 WBC 16.26 H Neut # (Auto) 14.14 H Creatinine 0.99 Est Cr Clr Drug Dosing 77.6 Micro Results: 07/27/19 22:22 Aerobic Blood Culture - Pending Blood Anaerobic Blood Culture - Pending 07/27/19 21:38 Aerobic Blood Culture - Pending Blood Anaerobic Blood Culture - Pending - Risk Factors for Resistance * Hospitalization for 48 hours or more within the past 90 days * Antimicrobial use within the last 90 days (CIPROFLOXACIN) - Assessment & Plan Assessment 63 year old M ADMITTED WITH DIFFICULTY BREATHING AFTER THORACENTESIS. PATIENT S/P AVR AT [facility] 3 WEEKS AGO. Plan VANCOMYCIN/ZOSYN for treatment of DIFFICULTY BREATHING Vancomycin IV * Estimated PK Parameters: Vd 0.7 L/kg, Martin 0.069 hr-1, t1/2 10 hr * Loading dose: 1750 mg (24 mg/kg) * Maintenance dose: 1000 mg IV (15 mg/kg) every 12 hours * Goal trough level for PULMONARY INDICATION : 15 to 20 mcg/mL * Trough ordered for 07/29/19 Piperacillin/tazobactam * 4.5 g bolus administered over 30 minutes, then 4.5 g IV extended infusion every 8 hours for CrCl greater than 20 mL/min * Aggressive dosing selected due to critically ill status. Pharmacy will continue to follow and will adjust dose/frequency as necessary. Thank you.
[2019-07-28] MEDS ORDERED: VANCOMYCIN HCL 1,750 MG in SODIUM CHLORIDE 0.9% 500 ML IV ONE (02:45)
[2019-07-28] MEDS: ACETAMINOPHEN 500 MG TAB PO PRN ×2 (03:16→17:26)
[2019-07-28] MEDS: PIPERACILLIN/TAZOBACTAM 4.5 GM in DEXTROSE 5% 100 ML IV SCH ×3 (04:32→21:00)
[2019-07-28] MEDS ORDERED: BENZONATATE 100 MG CAPSULE PO PRN (05:39)
[2019-07-28 06:10] LABS: Appearance Urine Clear (Clear); Bilirubin Urine Negative (Negative); Blood Urine Negative (Negative); Color Urine Dark Yellow; Glucose Urine UA Negative (Negative); Ketones Urine Trace (Negative); Leukocyte Esterase Urine Negative (Negative); Nitrite Urine Negative (Negative); Protein Urine Negative (Negative); Specific Gravity Urine 1.032 (1.000-1.030); Urobilinogen Urine Negative (Negative); pH Urine 5.5 (4.5-7.5)
[2019-07-28 07:36] LABS: Basophils # (auto) 0.03 K/uL (0-0.2); Basophils % (auto) 0.2 %; Eosinophils % (auto) 1.5 %; Hematocrit (blood only) 33.7 % (42-52); Hemoglobin 10.9 g/dL (14.0-18.0); Immature Granulocytes # (auto) 0.06 K/uL (0.00-0.02); Immature Granulocytes % (auto) 0.4 %; Lymphocytes # (auto) 0.97 K/uL (1.2-3.4); Lymphocytes % (auto) 7.2 %; Mean Corpuscular Hemoglobin 28.4 pg (25-34); Mean Corpuscular Hgb Conc 32.3 g/dL (32-36); Mean Corpuscular Volume 87.8 fL (80-100); Mean Platelet Volume 9.1 fL (7.4-10.4); Monocytes # (auto) 1.14 K/uL (0.11-0.59); Monocytes % (auto) 8.5 %; Neutrophils # (auto) 11.01 K/uL (1.4-6.5); Neutrophils % (auto) 82.2 %; Platelet Count 539 K/uL (130-400); RDW Coefficient of Variation 14.1 % (11.5-14.5); RDW Standard Deviation 45.2 fL (36.4-46.3); Red Blood Count 3.84 M/uL (4.7-6.1); White Blood Count 13.41 K/uL (4.8-10.8)
[2019-07-28 07:46] LABS: INR 1.4 (0.9-1.1); Prothrombin Time 14.2 Seconds (9.0-12.0)
[2019-07-28 08:11] LABS: Albumin Level 2.2 gm/dl (3.4-5.0); BUN Creatinine Ratio 20.8 (10-20); C Reactive Protein 9.52 mg/dl (0-0.29); Calcium 8.3 mg/dl (8.5-10.1); Creatinine Clr Calc Pharmacy 86.3 ml/min; Est GFR (African American) 107.2; Est GFR (Non-African American) 92.5; Potassium 3.9 mmol/L (3.5-5.1)
[2019-07-28 08:15] LABS: Albumin Globulin Ratio 0.5 (0.9-2); Bilirubin,Total 0.4 mg/dl (0.2-1); Globulin 4.2 gm/dl (2.5-4.0); Total Protein 6.4 gm/dl (6.4-8.2)
[2019-07-28] MEDS: FAMOTIDINE 20 MG TAB PO SCH ×2 (08:50→21:00)
[2019-07-28] MEDS: METOPROLOL TARTRATE 25 MG TAB PO SCH ×4 (08:50→21:00)
[2019-07-28] MEDS: ASPIRIN 81 MG ECTAB PO SCH (08:50)
[2019-07-28] MEDS ORDERED: FUROSEMIDE 20 MG in SYRINGE 0 ML IV ONE (09:10)
--- NOTE | 2019-07-28 09:36 | Cardiology Consultation ---
Date of Consultation July 28, 2019 Assessment & Plan (1) Acute respiratory failure with hypoxia: (2) Kenyon's syndrome: (3) Pericardial effusion without cardiac tamponade: (4) S/P thoracentesis: (5) Pulmonary edema with congestive heart failure with preserved left ventricular function: (6) S/P AVR (aortic valve replacement): 63-year-old patient status post aortic valve replacement on July 04. Hospital course complicated by left atrial bleeding requiring reoperation with left atrial clip placement and paroxysmal atrial fibrillation. Prescribed short-term anticoagulation with Coumadin due to paroxysmal atrial fibrillation. INR subtherapeutic. Patient underwent thoracentesis yesterday for recurrent left-sided pleural effusion with drainage of 1.5 L of serosanguineous fluid. I discussed the case with Dr. Prado CT surgery. There is no evidence of empyema and the fluid was not sent for analysis or culture. Patient remains afebrile however notes cough. I suspect chest x-ray findings in conjunction with hypoxia or secondary to reexpansion pulmonary edema. Recommend Lasix 20 mill grams IV x1 now. Beta- naya will be titrated to 25 mg twice daily to improve heart rate control and hopefully avoid further episodes of atrial fibrillation. Patient was intolerant to amiodarone during recent hospital stay at [facility] in [place] due to severe nausea and vomiting. Recommend low-dose colchicine due to evidence of Kenyon's syndrome with recu rrent pleural effusion and small circumferential pericardial effusion per echocardiogram. CT of the chest ordered. If the pericardial effusion remains small, no need for repeat echocardiogram currently which was performed 07/26 at [facility]. History of Present Illness Reason for Consultation: Pleural effusion, PAF, recent AVR Requesting Physician: Dr. Crowe Attending Physician: Osbaldo Crowe MD History of Present Illness 63-year-old patient admitted with shortness of breath. Patient underwent thoracentesis at [facility] in [place] yesterday 07/27/2019. 1500 cc of serosanguineous and blood-tinged fluid was removed. I discussed the case with CT surgery. There is no evidence of empyema. The fluid was not sent for analysis or culture. Patient developed progressive shortness of breath in the evening. Came to the emergency department for further evaluation. Found to be hypoxic on admission. Treated with supplemental oxygen and admitted to the intensive care unit. Repeat chest x-ray demonstrates left lower lobe infiltrate with bilateral pleural effusions. Patient denies fever or chills. Notes significant cough since thoracentesis. Mildly elevated white blood cell count noted. Denies chest discomfort or heaviness. Echocardiogram performed approximately 2 days ago demonstrated a small, less than 5 mm circumferential pericardial effusion without hemodynamic compromise. Patient weaned off of nonrebreather to nasal cannula oxygen currently. Offers no other complaints at this time Allergies Allergy/AdvReac Type Severity Reaction Status Date / Time No Known Allergies Allergy Mild Verified 04/06/19 08:09 Home Medications Home Medications Medication Instructions Recorded Confirmed Type acetaminophen [Tylenol Extra 500 mg PO Q6H PRN 07/27/19 07/27/19 History Strength] aspirin 81 mg PO QAM 07/27/19 07/27/19 History famotidine 20 mg PO BID 07/27/19 07/27/19 History metoprolol tartrate 12.5 mg PO BID 07/27/19 07/27/19 History warfarin [Jantoven] 4 mg PO QPM 07/27/19 07/27/19 History Patient History Medical History BPH (benign prostatic hyperplasia) Bicuspid aortic valve Severe aortic stenosis Social History Preferred Language: Portuguese Communication Ability: Effective Hoop Maker Machine Required: No Beliefs That Will Affect Care: Shinto Shinto Beliefs: Oriental Orthodox Judaism Current Living Situation: Spouse Feels Safe at Home: Yes Safety Concerns: Feels Safe At This Time Smoking Status: Former smoker Do You Dip or Chew Tobacco: No ; Second Hand Exposure: No ; Hx Alcohol Use: No Hx Substance Use: No Review of Systems Review of Systems: All systems reviewed & are unremarkable except as noted in HPI & below Physical Exam Physical Exam: General: NAD, AAO x3, well nourished. HEENT: Normocephalic. Atraumatic. Conjunctiva pink, no scleral icterus. Neck: No carotid bruits, the carotid upstrokes are brisk. No JVD. No HJR Heart: Regular normal S-1 and S-2 no S-3 or S-4 gallop. No murmurs or rub appreciated. PMI is not displaced. No RV heave. Lungs: Diminished breath sounds at the left base. Scant crackles at the bases bilaterally. No rhonchi, or wheeze. Abdomen: Normal bowel sounds. Soft. Nontender. No masses or organomegaly. No abdominal bruits. Extremities: No clubbing, cyanosis, or edema. Pulses: radial=2/4, Dorsalis pedis =2/4, posterior tibial=2/4. Neuro: Cranial nerves grossly intact. No focal motor deficit. Results & Data Vital Signs (Past 12 Hours) Vital Signs Temp Pulse Pulse Resp BP BP Pulse Ox 07/28/19 04:00 37.3 C 101 H 20 114/61 95 07/28/19 02:51 37.1 C 100 H 24 106/69 95 07/28/19 02:04 07/28/19 01:48 102 H 22 109/76 95 07/28/19 01:13 97 H 24 111/61 94 07/27/19 23:32 107 H 24 123/77 91 07/27/19 23:23 88 L 07/27/19 22:54 102 H 24 122/75 87 L 07/27/19 21:45 90 07/27/19 21:44 83 L 07/27/19 21:33 37.1 C 107 H 20 126/65 83 L Pulse Ox 07/28/19 04:00 07/28/19 02:51 07/28/19 02:04 95 07/28/19 01:48 07/28/19 01:13 07/27/19 23:32 07/27/19 23:23 07/27/19 22:54 07/27/19 21:45 07/27/19 21:44 07/27/19 21:33 Laboratory Results Laboratory Results - last 24 hr 07/27/19 07/27/19 07/27/19 21:38 21:38 21:38 WBC 16.26 H RBC 4.06 L Hgb 12.0 L Hct 35.8 L MCV 88.2 MCH 29.6 MCHC 33.5 RDW Std Deviation 45.2 RDW Coeff of Daphne 14.0 Plt Count 613 H MPV 9.2 Immature Gran % (Auto) 0.5 Neut % (Auto) 87.0 Lymph % (Auto) 5.7 Simpson % (Auto) 5.8 Eos % (Auto) 0.9 Baso % (Auto) 0.1 Immature Gran # (Auto) 0.08 H Neut # (Auto) 14.14 H Lymph # (Auto) 0.93 L Simpson # (Auto) 0.95 H Eos # (Auto) 0.15 Baso # (Auto) 0.01 ESR PT 14.1 H INR 1.4 H APTT 30.2 PTT Ratio 1.1 Sodium 134 L Potassium 3.8 Chloride 101 Carbon Dioxide 25 Anion Gap 9.0 BUN 18 Creatinine 0.99 Est Cr Clr Drug Dosing 77.6 Est GFR ( Amer) 92.9 Est GFR (Non-Af Amer) 80.2 BUN/Creatinine Ratio 18.3 Glucose 160 H Lactate Calcium 8.5 Magnesium 2.1 Total Bilirubin 0.4 AST 19 ALT 36 Alkaline Phosphatase 95 Troponin I 0.023 C-Reactive Protein NT-Pro-B Natriuret Pep Total Protein 7.1 Albumin 2.5 L Globulin 4.6 H Albumin/Globulin Ratio 0.5 L Procalcitonin Urine Color Urine Appearance Urine pH Ur Specific Bowman Urine Protein Urine Glucose (UA) Urine Ketones Urine Blood Urine Nitrite Urine Bilirubin Urine Urobilinogen Ur Leukocyte Esterase Nasal Screen MRSA (PCR) Mycoplasma pneumon IgM 07/27/19 07/28/19 07/28/19 22:22 02:00 04:40 WBC RBC Hgb Hct MCV MCH MCHC RDW Std Deviation RDW Coeff of Daphne Plt Count MPV Immature Gran % (Auto) Neut % (Auto) Lymph % (Auto) Simpson % (Auto) Eos % (Auto) Baso % (Auto) Immature Gran # (Auto) Neut # (Auto) Lymph # (Auto) Simpson # (Auto) Eos # (Auto) Baso # (Auto) ESR PT INR APTT PTT Ratio Sodium Potassium Chloride Carbon Dioxide Anion Gap BUN Creatinine Est Cr Clr Drug Dosing Est GFR ( Amer) Est GFR (Non-Af Amer) BUN/Creatinine Ratio Glucose Lactate 1.7 Calcium Magnesium Total Bilirubin AST ALT Alkaline Phosphatase Troponin I C-Reactive Protein NT-Pro-B Natriuret Pep Total Protein Albumin Globulin Albumin/Globulin Ratio Procalcitonin Urine Color Dark Yellow Urine Appearance Clear Urine pH 5.5 Ur Specific Bowman 1.032 H Urine Protein Negative Urine Glucose (UA) Negative Urine Ketones Trace H Urine Blood Negative Urine Nitrite Negative Urine Bilirubin Negative Urine Urobilinogen Negative Ur Leukocyte Esterase Negative Nasal Screen MRSA (PCR) Negative Mycoplasma pneumon IgM 07/28/19 07/28/19 07/28/19 07:13 07:13 07:18 WBC 13.41 H RBC 3.84 L Hgb 10.9 L Hct 33.7 L MCV 87.8 MCH 28.4 MCHC 32.3 RDW Std Deviation 45.2 RDW Coeff of Daphne 14.1 Plt Count 539 H MPV 9.1 Immature Gran % (Auto) 0.4 Neut % (Auto) 82.2 Lymph % (Auto) 7.2 Simpson % (Auto) 8.5 Eos % (Auto) 1.5 Baso % (Auto) 0.2 Immature Gran # (Auto) 0.06 H Neut # (Auto) 11.01 H Lymph # (Auto) 0.97 L Simpson # (Auto) 1.14 H Eos # (Auto) 0.20 Baso # (Auto) 0.03 ESR PT INR APTT PTT Ratio Sodium Cancelled Potassium Cancelled Chloride Cancelled Carbon Dioxide Cancelled Anion Gap Cancelled BUN Cancelled Creatinine Cancelled Est Cr Clr Drug Dosing Cancelled Est GFR ( Amer) Cancelled Est GFR (Non-Af Amer) Cancelled BUN/Creatinine Ratio Cancelled Glucose Cancelled Lactate Calcium Cancelled Magnesium 2.2 Total Bilirubin Cancelled AST Cancelled ALT Cancelled Alkaline Phosphatase Cancelled Troponin I C-Reactive Protein NT-Pro-B Natriuret Pep Cancelled Total Protein Cancelled Albumin Cancelled Globulin Cancelled Albumin/Globulin Ratio Cancelled Procalcitonin Urine Color Urine Appearance Urine pH Ur Specific Bowman Urine Protein Urine Glucose (UA) Urine Ketones Urine Blood Urine Nitrite Urine Bilirubin Urine Urobilinogen Ur Leukocyte Esterase Nasal Screen MRSA (PCR) Mycoplasma pneumon IgM 07/28/19 07/28/19 07/28/19 07:18 07:18 07:18 WBC RBC Hgb Hct MCV MCH MCHC RDW Std Deviation RDW Coeff of Daphne Plt Count MPV Immature Gran % (Auto) Neut % (Auto) Lymph % (Auto) Simpson % (Auto) Eos % (Auto) Baso % (Auto) Immature Gran # (Auto) Neut # (Auto) Lymph # (Auto) Simpson # (Auto) Eos # (Auto) Baso # (Auto) ESR > 90 H PT INR APTT PTT Ratio Sodium 136 Potassium 3.9 Chloride 104 Carbon Dioxide 24 Anion Gap 8.0 BUN 18 Creatinine 0.84 Est Cr Clr Drug Dosing 86.3 Est GFR ( Amer) 107.2 Est GFR (Non-Af Amer) 92.5 BUN/Creatinine Ratio 20.8 H Glucose 117 H Lactate Calcium 8.3 L Magnesium Total Bilirubin 0.4 AST 13 L ALT 28 Alkaline Phosphatase 82 Troponin I C-Reactive Protein 9.52 H NT-Pro-B Natriuret Pep 634 Total Protein 6.4 Albumin 2.2 L Globulin 4.2 H Albumin/Globulin Ratio 0.5 L Procalcitonin < 0.05 Urine Color Urine Appearance Urine pH Ur Specific Bowman Urine Protein Urine Glucose (UA) Urine Ketones Urine Blood Urine Nitrite Urine Bilirubin Urine Urobilinogen Ur Leukocyte Esterase Nasal Screen MRSA (PCR) Mycoplasma pneumon IgM 07/28/19 07/28/19 07:18 07:18 WBC RBC Hgb Hct MCV MCH MCHC RDW Std Deviation RDW Coeff of Daphne Plt Count MPV Immature Gran % (Auto) Neut % (Auto) Lymph % (Auto) Simpson % (Auto) Eos % (Auto) Baso % (Auto) Immature Gran # (Auto) Neut # (Auto) Lymph # (Auto) Simpson # (Auto) Eos # (Auto) Baso # (Auto) ESR PT 14.2 H INR 1.4 H APTT PTT Ratio Sodium Potassium Chloride Carbon Dioxide Anion Gap BUN Creatinine Est Cr Clr Drug Dosing Est GFR ( Amer) Est GFR (Non-Af Amer) BUN/Creatinine Ratio Glucose Lactate Calcium Magnesium Total Bilirubin AST ALT Alkaline Phosphatase Troponin I C-Reactive Protein NT-Pro-B Natriuret Pep Total Protein Albumin Globulin Albumin/Globulin Ratio Procalcitonin Urine Color Urine Appearance Urine pH Ur Specific Bowman Urine Protein Urine Glucose (UA) Urine Ketones Urine Blood Urine Nitrite Urine Bilirubin Urine Urobilinogen Ur Leukocyte Esterase Nasal Screen MRSA (PCR) Mycoplasma pneumon IgM Pending
[2019-07-28] MEDS: COLCHICINE 0.6 MG TAB PO SCH (10:07)
--- NOTE | 2019-07-28 12:11 | Pulmonary Consultation ---
Date of Consultation July 28, 2019 Assessment & Plan (1) Acute respiratory failure with hypoxia: Likely sec to component of b/l Pleural effusion with mild pulmonary edema sec to HFpEF Patient is recent post open heart for Aortic valve replacement in early june 2019. Patient also has atelectasis of LLL appreciated on US done at bedside. PCT: negative. Recommend discontinuing abx. c/w O2 supplementation. Keep SPO2 90-94%. BiPAP qhs and PRN SOB Diuresis as tolerated, strict in's and out's Cardio consulted. Will get CT chest without contrast (2) Pleural effusion: B/l Pleural effusion, infectious etiology very unlikely Patient had tap at [place] 07/27/19 where 1500ml of sero-sanguinous fluid was removed and patient was sent home. Fluid was not sent for labs apparently on getting information from hospitalist. Given the history of recent cardiotomy. Post cardiotomy injury syndrome is high in the differential along with post-thoracenthesis reexpansion pulmonary edema. Although patient has minimal chest pain. will order ESR and CRP. Add Colchicine and give NSAIDs PRN. Hold off to further thoracenthesis for the time being. Will order CT chest without contrast. Bedside US performed: Showed b/l Plerual effusions more on the right than the left. + B lines b/l. + atelectasis Left lower lobe. Case discussed with Cardiology and hospitalist. (3) Pulmonary edema with congestive heart failure with preserved left ventricular function: plan as above (4) Pericardial effusion without cardiac tamponade: (5) Bicuspid aortic valve: History of Present Illness Reason for Consultation: Hypoxia with pleural effusion Attending Physician: Osbaldo Crowe MD History of Present Illness 63-year-old male with past medical history of aortic valve replacement bioprosthetic done on 07/04/2019 that then will which is complicated by left hemothorax secondary to epidural bleed for which he was reoperated upon. Comes in to the ER complaining of shortness of breath and cough which happened when he went home after thoracentesis performed at [place] by 1.5 L of serosanguineous fluid was aspirated. he fluid was not sent for analysis or culture. In the emergency room patient was found to be saturating 83 to 85% on oxygen 6 L. At the time of examination lying on his bed no acute distress, no use of any wrist accessory muscles. Saturating well on 4 L nasal cannula. Talking in full sentences. Patient denies any fever or chills. No dysuria, no diarrhea. Patient is coughing up clear phlegm. Complains of pleuritic chest pain especially on coughing a lot. Denies any dizziness, no palpitation, no hematuria, no hematochezia. No nausea or vomiting. No recent travel history. No night sweats. Denies any swelling in the legs. No pets at home. Social history: Less than 20-[id number]-bcqa smoking history, used to chew tobacco quit approximately a year ago. Social alcohol, denies any illicit drug use. 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 Allergies Allergy/AdvReac Type Severity Reaction Status Date / Time No Known Allergies Allergy Mild Verified 04/06/19 08:09 Home Medications Home Medications Medication Instructions Recorded Confirmed Type acetaminophen [Tylenol Extra 500 mg PO Q6H PRN 07/27/19 07/27/19 History Strength] aspirin 81 mg PO QAM 07/27/19 07/27/19 History famotidine 20 mg PO BID 07/27/19 07/27/19 History metoprolol tartrate 12.5 mg PO BID 07/27/19 07/27/19 History warfarin [Jantoven] 4 mg PO QPM 07/27/19 07/27/19 History Patient History Medical History BPH (benign prostatic hyperplasia) Bicuspid aortic valve Severe aortic stenosis Social History Preferred Language: Bengali Communication Ability: Effective Claim Taker Required: No Beliefs That Will Affect Care: Jainism Jainism Beliefs: [employer] Current Living Situation: Spouse Feels Safe at Home: Yes Safety Concerns: Feels Safe At This Time Smoking Status: Former smoker Do You Dip or Chew Tobacco: No ; Second Hand Exposure: No ; Hx Alcohol Use: No Hx Substance Use: No Review of Systems Review of Systems: All systems reviewed & are unremarkable except as noted in HPI & below Physical Exam Physical Exam: Constitutional: No acute distress HEENT: EOMI, PERRLA, No JVD Respiratory system: decreased air entry bilaterally, more decreased on the right. + crackles b/l LL, no wheeze, no rhonchi CVS: S1-S2 positive, no murmurs or gallops, Midline sternotomy scar +ne, non indurated Abdomen: Soft, nontender, nondistended, positive bowel sounds x4 Extremities: +2 pulses bilaterally radialis/ dorsalis pedis, no edema, no cyanosis Neuro: Awake alert oriented x3 Psych: Normal mood and affect G/U: No Olivares Bedside US performed: Showed b/l Plerual effusions more on the right than the left. + B lines b/l. + atelectasis Left lower lobe. Neurologic: PERRL, EOMI, accommodation nl, no face palsy, no dysarthria Lymphatic: no cervical or axillary lymphadenopathy Results & Data Vital Signs (Past 12 Hours) Vital Signs Temp Pulse Pulse Resp BP BP Pulse Ox 07/28/19 10:00 103 H 20 96 07/28/19 09:00 95 H 22 95 07/28/19 08:50 36.9 C 20 120/69 95 07/28/19 07:00 103 H 18 94 07/28/19 04:00 37.3 C 101 H 20 114/61 95 07/28/19 02:51 37.1 C 100 H 24 106/69 95 07/28/19 02:04 07/28/19 01:48 102 H 22 109/76 95 07/28/19 01:13 97 H 24 111/61 94 Pulse Ox 07/28/19 10:00 07/28/19 09:00 07/28/19 08:50 07/28/19 07:00 07/28/19 04:00 07/28/19 02:51 07/28/19 02:04 95 07/28/19 01:48 07/28/19 01:13 Laboratory Results 07/28/19 07:13 07/28/19 07:18 07/28/19 07/28/19 07/28/19 Range/Units 07:18 07:18 07:18 WBC (4.8-10.8) K/uL RBC (4.7-6.1) M/uL Hgb (14.0-18.0) g/dL Hct (42-52) % MCV (80-100) fL MCH (25-34) pg MCHC (32-36) g/dL RDW Std Deviation (36.4-46.3) fL RDW Coeff of Daphne (11.5-14.5) % Plt Count (130-400) K/uL MPV (7.4-10.4) fL Immature Gran % (Auto) % Neut % (Auto) % Lymph % (Auto) % Independence % (Auto) % Eos % (Auto) % Baso % (Auto) % Immature Gran # (Auto) (0.00-0.02) K/uL Neut # (Auto) (1.4-6.5) K/uL Lymph # (Auto) (1.2-3.4) K/uL Independence # (Auto) (0.11-0.59) K/uL Eos # (Auto) (0-0.5) K/uL Baso # (Auto) (0-0.2) K/uL ESR (0-14) mm/hr PT 14.2 H (9.0-12.0) Seconds INR 1.4 H (0.9-1.1) APTT (21.0-31.0) Seconds PTT Ratio Sodium 136 (136-145) mmol/L Potassium 3.9 (3.5-5.1) mmol/L Chloride 104 (98-107) mmol/L Carbon Dioxide 24 (21-32) mmol/L Anion Gap 8.0 (3-11) BUN 18 (7-18) mg/dl Creatinine 0.84 (0.6-1.4) mg/dl Est Cr Clr Drug Dosing 86.3 ml/min Est GFR ( Amer) 107.2 Est GFR (Non-Af Amer) 92.5 BUN/Creatinine Ratio 20.8 H (10-20) Glucose 117 H (70-99) mg/dl Lactate (0.4-2.0) mmol/L Calcium 8.3 L (8.5-10.1) mg/dl Magnesium (1.8-2.4) mg/dl Total Bilirubin 0.4 (0.2-1) mg/dl AST 13 L (15-37) U/L ALT 28 (12-78) U/L Alkaline Phosphatase 82 (45-117) U/L Troponin I (0-0.045) ng/ml C-Reactive Protein 9.52 H (0-0.29) mg/dl NT-Pro-B Natriuret Pep 634 Total Protein 6.4 (6.4-8.2) gm/dl Albumin 2.2 L (3.4-5.0) gm/dl Globulin 4.2 H (2.5-4.0) gm/dl Albumin/Globulin Ratio 0.5 L (0.9-2) Procalcitonin (0-0.5) ng/ml Urine Color Urine Appearance (Clear) Urine pH (4.5-7.5) Ur Specific Carson (1.000-1.030) Urine Protein (Negative) Urine Glucose (UA) (Negative) Urine Ketones (Negative) Urine Blood (Negative) Urine Nitrite (Negative) Urine Bilirubin (Negative) Urine Urobilinogen (Negative) Ur Leukocyte Esterase (Negative) Nasal Screen MRSA (PCR) (Negative) Mycoplasma pneumon IgM Pending 07/28/19 07/28/19 07/28/19 Range/Units 07:18 07:18 07:18 WBC (4.8-10.8) K/uL RBC (4.7-6.1) M/uL Hgb (14.0-18.0) g/dL Hct (42-52) % MCV (80-100) fL MCH (25-34) pg MCHC (32-36) g/dL RDW Std Deviation (36.4-46.3) fL RDW Coeff of Daphne (11.5-14.5) % Plt Count (130-400) K/uL MPV (7.4-10.4) fL Immature Gran % (Auto) % Neut % (Auto) % Lymph % (Auto) % Independence % (Auto) % Eos % (Auto) % Baso % (Auto) % Immature Gran # (Auto) (0.00-0.02) K/uL Neut # (Auto) (1.4-6.5) K/uL Lymph # (Auto) (1.2-3.4) K/uL Independence # (Auto) (0.11-0.59) K/uL Eos # (Auto) (0-0.5) K/uL Baso # (Auto) (0-0.2) K/uL ESR > 90 H (0-14) mm/hr PT (9.0-12.0) Seconds INR (0.9-1.1) APTT (21.0-31.0) Seconds PTT Ratio Sodium Cancelled (136-145) mmol/L Potassium Cancelled (3.5-5.1) mmol/L Chloride Cancelled (98-107) mmol/L Carbon Dioxide Cancelled (21-32) mmol/L Anion Gap Cancelled (3-11) BUN Cancelled (7-18) mg/dl Creatinine Cancelled (0.6-1.4) mg/dl Est Cr Clr Drug Dosing Cancelled ml/min Est GFR ( Amer) Cancelled Est GFR (Non-Af Amer) Cancelled BUN/Creatinine Ratio Cancelled (10-20) Glucose Cancelled (70-99) mg/dl Lactate (0.4-2.0) mmol/L Calcium Cancelled (8.5-10.1) mg/dl Magnesium (1.8-2.4) mg/dl Total Bilirubin Cancelled (0.2-1) mg/dl AST Cancelled (15-37) U/L ALT Cancelled (12-78) U/L Alkaline Phosphatase Cancelled (45-117) U/L Troponin I (0-0.045) ng/ml C-Reactive Protein (0-0.29) mg/dl NT-Pro-B Natriuret Pep Cancelled Total Protein Cancelled (6.4-8.2) gm/dl Albumin Cancelled (3.4-5.0) gm/dl Globulin Cancelled (2.5-4.0) gm/dl Albumin/Globulin Ratio Cancelled (0.9-2) Procalcitonin < 0.05 (0-0.5) ng/ml Urine Color Urine Appearance (Clear) Urine pH (4.5-7.5) Ur Specific Carson (1.000-1.030) Urine Protein (Negative) Urine Glucose (UA) (Negative) Urine Ketones (Negative) Urine Blood (Negative) Urine Nitrite (Negative) Urine Bilirubin (Negative) Urine Urobilinogen (Negative) Ur Leukocyte Esterase (Negative) Nasal Screen MRSA (PCR) (Negative) Mycoplasma pneumon IgM 07/28/19 07/28/19 07/28/19 Range/Units 07:13 07:13 04:40 WBC 13.41 H (4.8-10.8) K/uL RBC 3.84 L (4.7-6.1) M/uL Hgb 10.9 L (14.0-18.0) g/dL Hct 33.7 L (42-52) % MCV 87.8 (80-100) fL MCH 28.4 (25-34) pg MCHC 32.3 (32-36) g/dL RDW Std Deviation 45.2 (36.4-46.3) fL RDW Coeff of Daphne 14.1 (11.5-14.5) % Plt Count 539 H (130-400) K/uL MPV 9.1 (7.4-10.4) fL Immature Gran % (Auto) 0.4 % Neut % (Auto) 82.2 % Lymph % (Auto) 7.2 % Independence % (Auto) 8.5 % Eos % (Auto) 1.5 % Baso % (Auto) 0.2 % Immature Gran # (Auto) 0.06 H (0.00-0.02) K/uL Neut # (Auto) 11.01 H (1.4-6.5) K/uL Lymph # (Auto) 0.97 L (1.2-3.4) K/uL Independence # (Auto) 1.14 H (0.11-0.59) K/uL Eos # (Auto) 0.20 (0-0.5) K/uL Baso # (Auto) 0.03 (0-0.2) K/uL ESR (0-14) mm/hr PT (9.0-12.0) Seconds INR (0.9-1.1) APTT (21.0-31.0) Seconds PTT Ratio Sodium (136-145) mmol/L Potassium (3.5-5.1) mmol/L Chloride (98-107) mmol/L Carbon Dioxide (21-32) mmol/L Anion Gap (3-11) BUN (7-18) mg/dl Creatinine (0.6-1.4) mg/dl Est Cr Clr Drug Dosing ml/min Est GFR ( Amer) Est GFR (Non-Af Amer) BUN/Creatinine Ratio (10-20) Glucose (70-99) mg/dl Lactate (0.4-2.0) mmol/L Calcium (8.5-10.1) mg/dl Magnesium 2.2 (1.8-2.4) mg/dl Total Bilirubin (0.2-1) mg/dl AST (15-37) U/L ALT (12-78) U/L Alkaline Phosphatase (45-117) U/L Troponin I (0-0.045) ng/ml C-Reactive Protein (0-0.29) mg/dl NT-Pro-B Natriuret Pep Total Protein (6.4-8.2) gm/dl Albumin (3.4-5.0) gm/dl Globulin (2.5-4.0) gm/dl Albumin/Globulin Ratio (0.9-2) Procalcitonin (0-0.5) ng/ml Urine Color Dark Yellow Urine Appearance Clear (Clear) Urine pH 5.5 (4.5-7.5) Ur Specific Carson 1.032 H (1.000-1.030) Urine Protein Negative (Negative) Urine Glucose (UA) Negative (Negative) Urine Ketones Trace H (Negative) Urine Blood Negative (Negative) Urine Nitrite Negative (Negative) Urine Bilirubin Negative (Negative) Urine Urobilinogen Negative (Negative) Ur Leukocyte Esterase Negative (Negative) Nasal Screen MRSA (PCR) (Negative) Mycoplasma pneumon IgM 07/28/19 07/27/19 07/27/19 Range/Units 02:00 22:22 21:38 WBC (4.8-10.8) K/uL RBC (4.7-6.1) M/uL Hgb (14.0-18.0) g/dL Hct (42-52) % MCV (80-100) fL MCH (25-34) pg MCHC (32-36) g/dL RDW Std Deviation (36.4-46.3) fL RDW Coeff of Daphne (11.5-14.5) % Plt Count (130-400) K/uL MPV (7.4-10.4) fL Immature Gran % (Auto) % Neut % (Auto) % Lymph % (Auto) % Independence % (Auto) % Eos % (Auto) % Baso % (Auto) % Immature Gran # (Auto) (0.00-0.02) K/uL Neut # (Auto) (1.4-6.5) K/uL Lymph # (Auto) (1.2-3.4) K/uL Independence # (Auto) (0.11-0.59) K/uL Eos # (Auto) (0-0.5) K/uL Baso # (Auto) (0-0.2) K/uL ESR (0-14) mm/hr PT (9.0-12.0) Seconds INR (0.9-1.1) APTT (21.0-31.0) Seconds PTT Ratio Sodium 134 L (136-145) mmol/L Potassium 3.8 (3.5-5.1) mmol/L Chloride 101 (98-107) mmol/L Carbon Dioxide 25 (21-32) mmol/L Anion Gap 9.0 (3-11) BUN 18 (7-18) mg/dl Creatinine 0.99 (0.6-1.4) mg/dl Est Cr Clr Drug Dosing 77.6 ml/min Est GFR ( Amer) 92.9 Est GFR (Non-Af Amer) 80.2 BUN/Creatinine Ratio 18.3 (10-20) Glucose 160 H (70-99) mg/dl Lactate 1.7 (0.4-2.0) mmol/L Calcium 8.5 (8.5-10.1) mg/dl Magnesium 2.1 (1.8-2.4) mg/dl Total Bilirubin 0.4 (0.2-1) mg/dl AST 19 (15-37) U/L ALT 36 (12-78) U/L Alkaline Phosphatase 95 (45-117) U/L Troponin I 0.023 (0-0.045) ng/ml C-Reactive Protein (0-0.29) mg/dl NT-Pro-B Natriuret Pep Total Protein 7.1 (6.4-8.2) gm/dl Albumin 2.5 L (3.4-5.0) gm/dl Globulin 4.6 H (2.5-4.0) gm/dl Albumin/Globulin Ratio 0.5 L (0.9-2) Procalcitonin (0-0.5) ng/ml Urine Color Urine Appearance (Clear) Urine pH (4.5-7.5) Ur Specific Carson (1.000-1.030) Urine Protein (Negative) Urine Glucose (UA) (Negative) Urine Ketones (Negative) Urine Blood (Negative) Urine Nitrite (Negative) Urine Bilirubin (Negative) Urine Urobilinogen (Negative) Ur Leukocyte Esterase (Negative) Nasal Screen MRSA (PCR) Negative (Negative) Mycoplasma pneumon IgM 07/27/19 07/27/19 Range/Units 21:38 21:38 WBC 16.26 H (4.8-10.8) K/uL RBC 4.06 L (4.7-6.1) M/uL Hgb 12.0 L (14.0-18.0) g/dL Hct 35.8 L (42-52) % MCV 88.2 (80-100) fL MCH 29.6 (25-34) pg MCHC 33.5 (32-36) g/dL RDW Std Deviation 45.2 (36.4-46.3) fL RDW Coeff of Daphne 14.0 (11.5-14.5) % Plt Count 613 H (130-400) K/uL MPV 9.2 (7.4-10.4) fL Immature Gran % (Auto) 0.5 % Neut % (Auto) 87.0 % Lymph % (Auto) 5.7 % Independence % (Auto) 5.8 % Eos % (Auto) 0.9 % Baso % (Auto) 0.1 % Immature Gran # (Auto) 0.08 H (0.00-0.02) K/uL Neut # (Auto) 14.14 H (1.4-6.5) K/uL Lymph # (Auto) 0.93 L (1.2-3.4) K/uL Independence # (Auto) 0.95 H (0.11-0.59) K/uL Eos # (Auto) 0.15 (0-0.5) K/uL Baso # (Auto) 0.01 (0-0.2) K/uL ESR (0-14) mm/hr PT 14.1 H (9.0-12.0) Seconds INR 1.4 H (0.9-1.1) APTT 30.2 (21.0-31.0) Seconds PTT Ratio 1.1 Sodium (136-145) mmol/L Potassium (3.5-5.1) mmol/L Chloride (98-107) mmol/L Carbon Dioxide (21-32) mmol/L Anion Gap (3-11) BUN (7-18) mg/dl Creatinine (0.6-1.4) mg/dl Est Cr Clr Drug Dosing ml/min Est GFR ( Amer) Est GFR (Non-Af Amer) BUN/Creatinine Ratio (10-20) Glucose (70-99) mg/dl Lactate (0.4-2.0) mmol/L Calcium (8.5-10.1) mg/dl Magnesium (1.8-2.4) mg/dl Total Bilirubin (0.2-1) mg/dl AST (15-37) U/L ALT (12-78) U/L Alkaline Phosphatase (45-117) U/L Troponin I (0-0.045) ng/ml C-Reactive Protein (0-0.29) mg/dl NT-Pro-B Natriuret Pep Total Protein (6.4-8.2) gm/dl Albumin (3.4-5.0) gm/dl Globulin (2.5-4.0) gm/dl Albumin/Globulin Ratio (0.9-2) Procalcitonin (0-0.5) ng/ml Urine Color Urine Appearance (Clear) Urine pH (4.5-7.5) Ur Specific Carson (1.000-1.030) Urine Protein (Negative) Urine Glucose (UA) (Negative) Urine Ketones (Negative) Urine Blood (Negative) Urine Nitrite (Negative) Urine Bilirubin (Negative) Urine Urobilinogen (Negative) Ur Leukocyte Esterase (Negative) Nasal Screen MRSA (PCR) (Negative) Mycoplasma pneumon IgM Diagnostic Findings Chest x-ray reviewed personally by me: Portable film. Mild pulmonary vascular congestion appreciated. Bilateral blunting of the costophrenic angle. Likely fluid effusion more on the right side. PG Care Time/CCT Total # of Minutes Spent Total Time Spent with Patient: Total time spent is greater than 50% in coordination of care (as documented) at patient's floor/unit and/or counseling patient:
--- NOTE | 2019-07-28 13:33 | CT Scan Report ---
CT SCAN OF THE CHEST WITHOUT IV CONTRAST CLINICAL HISTORY: Pleural effusions. COMPARISON STUDY: Chest CT dated 12/20/2016. Chest x-ray dated 07/27/2019. TECHNIQUE: CT scan of the thorax was performed from the thoracic inlet to the upper abdomen. Images are reviewed in the axial, sagittal, and coronal planes. IV contrast was not administered for this ex amination as per the referring clinician. A dose lowering technique was utilized [facility] DOSE: 815.04 mGycm FINDINGS: Thyroid: Imaged portions of the thyroid gland are normal in size and attenuation. Thoracic aorta: There is mild atherosclerotic calcification of the thoracic aorta, which is normal in caliber and demonstrates standard 3-vessel arch anatomy. Heart: The patient is status post midline sternotomy and aortic valve surgery. The heart is top sona l in size and there is a small pericardial effusion. There is diminished attenuation of the cardiac b lood pool as compared to the myocardium suggesting anemia. Lungs and pleural spaces: Evaluation of the lung parenchyma is degraded by motion artifact. Apical sc arring is observed. There is a moderate right pleural effusion with associated right basilar consolid ation. Dense airspace consolidation is seen throughout the left lower lobe and there is a trace left pleural effusion. Minimal consolidation is seen in the lingula. The trachea and central airways are c lear. Mediastinum: There is no mediastinal lymphadenopathy. Kristal: Not well assessed without IV contrast. Axillae: There is no axillary lymphadenopathy. Upper abdomen: An exophytic cyst is partially visualized arising from the upper pole of the right kid rey. Partially visualized upper abdominal viscera is otherwise grossly unremarkable. Skeletal structures: The skeletal structures are osteopenic. Degenerative change and mild hyperkyphos is are noted in the thoracic spine. No lytic or blastic bony lesions are seen. IMPRESSION: 1. There is dense airspace consolidation throughout the left lower lobe with minimal consolidation pr esent in the lingula. The appearance is typical for pneumonia/aspiration pneumonitis. Clinical correl ation will be required and radiographic follow-up to resolution is recommended. 2. There is a moderate right pleural effusion with consolidative change at the right lung base. This could present atelectasis versus pneumonia. 3. Only trace pleural effusion is seen on the left. 4. Small pericardial effusion. 5. Additional findings as above. Electronically signed by: Elton Mahoney M.D. 07/28/2019 1:31 PM
[2019-07-28] MEDS: VANCOMYCIN HCL 1,000 MG in SODIUM CHLORIDE 0.9% 250 ML IV SCH (14:11)
--- NOTE | 2019-07-28 17:54 | Hospitalist Progress Note ---
Date of Service July 28, 2019 Assessment & Plan (1) Acute respiratory failure with hypoxia: -as per admission HPI "This is a 63-year-old male with past medical history significant for nonrheumatic aortic valve stenosis, status post recent noninvasive aortic valve replacement with pig valve, paroxysmal atrial fibrillation, benign prostatic hypertrophy and osteoarthritis who comes with shortness of breath. On 07/04/2019, he had minimally invasive aortic valve replacement with pig valve for severe aortic stenosis at [facility]. Postoperatively, he was extubated, chest tubes were removed and he experienced bleeding from the left atrial appendage, and was brought back to the Operating Room. A left atrial appendage clip was placed to ligate the bleeding and had atrial fibrillation postoperatively. He was initially started on amiodarone, but it was discontinued due to nausea and he was started on beta-naya and also on heparin and currently he is on Coumadin. Patient had postoperatively follow up with thoracic surgery, he was found to have pleural effusions and his Coumadin was held and he is status post left thoracocentesis on 07/27/2019 was drained about 1500 mL of bloody and serosanguineous at out patient office and he was discharged home on 08/06/19." -subsequently patient had more cough and shortness of breath and patient presented to the ED at [facility] on 07/27/19 with acute respiratory failure with hypoxia -patient on supplementary oxygen and empirically given Vancomycin and Zosyn. procalcitonin negative but given leukocytosis(which could be inflammatory rather than reflect bacterial infection), would continue antibiotics until blood c ulture results (2) Pleural effusion: -underwent thoracentesis yesterday for recurrent left-sided pleural effusion with drainage of 1.5 L of serosanguineous fluid on 07/27/19 prior to the [facility] ED visit; cardiology discussed the case with Dr. Prado CT surgery and was informed that there is no evidence of empyema during that thoracentesis and the fluid was not sent for analysis or culture -CXR 07/27/19: Bilateral pleural effusions. Bilateral asymmetric airspace opacities left greater than right -CT scan on 07/28/19 There is dense airspace consolidation throughout the left lower lobe with minimal consolidation present in the lingula. There is a moderate right pleural effusion with consolidative change at the right lung base. This could present atelectasis versus pneumonia. Only trace pleural effusion is seen on the left. Small pericardial effusion -on IV antibiotics empirically -received IV Lasix 20 mg on 07/28/19 -will re-assess on 07/29/19 the diuretic dose based on blood pressures (3) Pericardial effusion without cardiac tamponade: (4) Kenyon's syndrome: -Cardiology started low-dose colchicine due to evidence of Kenyon's syndrome with recurrent pleural effusion and pericardial effusion -echocardiogram on 07/28/19 as a moderate sized loculated right lateral pericardial effusion (5) S/P AVR (aortic valve replacement): -Severe aortic valve stenosis, recent aortic valve replacement, postoperative complication by left atrial appendage site bleeding and was clipped -echocardiogram on 07/28/19 shows functional bioprosthetic valve -on BID metoprolol blood pressure is low normotensive DVT prophylaxis: SCDs, hold aspirin for now. encourage ambulation, will need to discuss with cardiology service any future role of coumadin Subjective blood pressures have been low normotensive. Patient on nasal cannula oxygen. needs supplementary oxygen. but no acute respiratory distress. denies chest pain or palpitations. no dizziness. no headache. no vomiting. Physical Exam Constitutional: comfortable Eyes: PERRL, conjunctivae normal, anicteric sclerae EOM intact bilaterally ENMT: external ear and nose normal, oropharynx normal Neck: normal visual inspection Respiratory: normal respiratory effort Cardiovascular: RRR, no murmur, no edema Gastrointestinal (Abdomen): normal bowel sounds, soft, nontender, no hepatosplenomegaly Musculoskeletal: Head/Neck/Chest: normocephalic and head atraumatic Neurologic: PERRL, EOMI, accommodation nl, no face palsy, no dysarthria CN's II-XI intact bilaterally Psychiatric: A+Ox3, euthymic affect Results & Data Vital Signs (Past 12 Hours) Vital Signs Temp Pulse Resp BP Pulse Ox 07/28/19 16:27 36.8 C 90 21 93/55 L 92 07/28/19 14:00 90 16 96 07/28/19 12:40 36.6 C 07/28/19 12:00 90 20 95/55 L 93 07/28/19 10:00 103 H 20 96 07/28/19 09:00 95 H 22 95 07/28/19 08:50 36.9 C 20 120/69 95 07/28/19 07:00 103 H 18 94
[2019-07-29] MEDS: VANCOMYCIN HCL 1,000 MG in SODIUM CHLORIDE 0.9% 250 ML IV SCH ×2 (01:20→14:45)
[2019-07-29] MEDS: PIPERACILLIN/TAZOBACTAM 4.5 GM in DEXTROSE 5% 100 ML IV SCH ×3 (04:00→20:56)
[2019-07-29 05:45] LABS: Basophils # (auto) 0.05 K/uL (0-0.2); Basophils % (auto) 0.5 %; Eosinophils # (auto) 0.83 K/uL (0-0.5); Eosinophils % (auto) 7.7 %; Hematocrit (blood only) 30.3 % (42-52); Hemoglobin 9.7 g/dL (14.0-18.0); Immature Granulocytes # (auto) 0.08 K/uL (0.00-0.02); Immature Granulocytes % (auto) 0.7 %; Lymphocytes # (auto) 0.97 K/uL (1.2-3.4); Lymphocytes % (auto) 8.9 %; Mean Corpuscular Hemoglobin 28.2 pg (25-34); Mean Corpuscular Volume 88.1 fL (80-100); Mean Platelet Volume 8.9 fL (7.4-10.4); Monocytes # (auto) 0.86 K/uL (0.11-0.59); Monocytes % (auto) 7.9 %; Neutrophils # (auto) 8.05 K/uL (1.4-6.5); Neutrophils % (auto) 74.3 %; Platelet Count 457 K/uL (130-400); RDW Coefficient of Variation 14.2 % (11.5-14.5); RDW Standard Deviation 46.1 fL (36.4-46.3); Red Blood Count 3.44 M/uL (4.7-6.1); White Blood Count 10.84 K/uL (4.8-10.8)
[2019-07-29 06:02] LABS: INR 1.5 (0.9-1.1); Prothrombin Time 15.3 Seconds (9.0-12.0)
[2019-07-29 06:29] LABS: Albumin Level 2.1 gm/dl (3.4-5.0); BUN Creatinine Ratio 15.3 (10-20); Calcium 7.9 mg/dl (8.5-10.1); Creatinine Clr Calc Pharmacy 69.7 ml/min; Est GFR (African American) 87.5; Est GFR (Non-African American) 75.5; Potassium 3.6 mmol/L (3.5-5.1)
[2019-07-29 06:35] LABS: Albumin Globulin Ratio 0.5 (0.9-2); Bilirubin,Total 0.6 mg/dl (0.2-1); Globulin 4.1 gm/dl (2.5-4.0); Total Protein 6.2 gm/dl (6.4-8.2)
[2019-07-29] MEDS: METOPROLOL TARTRATE 25 MG TAB PO SCH (08:37)
[2019-07-29] MEDS: FAMOTIDINE 20 MG TAB PO SCH ×2 (08:37→20:56)
[2019-07-29] MEDS: COLCHICINE 0.6 MG TAB PO SCH (08:37)
--- NOTE | 2019-07-29 10:15 | Hospitalist Progress Note ---
Date of Service July 29, 2019 Assessment & Plan (1) Acute respiratory failure with hypoxia: -as per admission HPI "This is a 63-year-old male with past medical history significant for nonrheumatic aortic valve stenosis, status post recent noninvasive aortic valve replacement with pig valve, paroxysmal atrial fibrillation, benign prostatic hypertrophy and osteoarthritis who comes with shortness of breath. On 07/04/2019, he had minimally invasive aortic valve replacement with pig valve for severe aortic stenosis at [facility]. Postoperatively, he was extubated, chest tubes were removed and he experienced bleeding from the left atrial appendage, and was brought back to the Operating Room. A left atrial appendage clip was placed to ligate the bleeding and had atrial fibrillation postoperatively. He was initially started on amiodarone, but it was discontinued due to nausea and he was started on beta-naya and also on heparin and currently he is on Coumadin. Patient had postoperatively follow up with thoracic surgery, he was found to have pleural effusions and his Coumadin was held and he is status post left thoracocentesis on 07/27/2019 was drained about 1500 mL of bloody and serosanguineous at out patient office and he was discharged home on 08/06/19." -subsequently patient had more cough and shortness of breath and patient presented to the ED at [facility] on 07/27/19 with acute respiratory failure with hypoxia -patient on supplementary oxygen and empirically given Vancomycin and Zosyn. procalcitonin negative but given leukocytosis(which could be inflammatory rather than reflect bacterial infection), antibiotics have been continued -Pulmonary doctor will perform thoracentesis on 07/29/19, will await the results (2) Pleural effusion: -underwent thoracentesis yesterday for recurrent left-sided pleural effusion with drainage of 1.5 L of serosanguineous fluid on 07/27/19 prior to the [facility] ED visit; cardiology discussed the case with Dr. Prado CT surgery and was informed that there is no evidence of empyema during that thoracentesis and the fluid was not sent for analysis or culture -CXR 07/27/19: Bilateral pleural effusions. Bilateral asymmetric airspace opacities left greater than right -CT scan on 07/28/19 There is dense airspace consolidation throughout the left lower lobe with minimal consolidation present in the lingula. There is a moderate right pleural effusion with consolidative change at the right lung base. This could present atelectasis versus pneumonia. Only trace pleural effusion is seen on the left. Small pericardial effusion -on IV antibiotics empirically -received IV Lasix 20 mg on 07/28/19 -cardiology on 07/29/19 asked to re-asses diuretics, cardiology aware that pulmonary service will do thoracentesis (3) Pericardial effusion without cardiac tamponade: (4) Kenyon's syndrome: -Cardiology started low-dose colchicine due to evidence of Kenyon's syndrome with recurrent pleural effusion and pericardial effusion -echocardiogram on 07/28/19 as a moderate sized loculated right lateral pericardial effusion (5) S/P AVR (aortic valve replacement): -Severe aortic valve stenosis, recent aortic valve replacement, postoperative complication by left atrial appendage site bleeding and was clipped -echocardiogram on 07/28/19 shows functional bioprosthetic valve -on BID metoprolol DVT prophylaxis: SCDs, hold aspirin for now. encourage ambulation, will need to discuss with cardiology service any future role of coumadin after thoracentesis Subjective Patient seen and examined this AM. Patient already seen by pulmonary doctor and cardiology doctor. Pulmonary doctor about to perform thoracentesis today. Patient on nasal cannula oxygen. denies acute pain or chest or lungs. he has been able to sleep without acute shortness of breath. no fevers. no dizziness. no lightheadedness. no vomiting Physical Exam Constitutional: comfortable Eyes: PERRL, conjunctivae normal, anicteric sclerae EOM intact bilaterally ENMT: external ear and nose normal, oropharynx normal Neck: normal visual inspection Respiratory: normal respiratory effort diminished lung sounds at the bases. Cardiovascular: RRR, no murmur, no edema Gastrointestinal (Abdomen): normal bowel sounds, soft, nontender, no hepatosplenomegaly Musculoskeletal: Head/Neck/Chest: normocephalic and head atraumatic Neurologic: PERRL, EOMI, accommodation nl, no face palsy, no dysarthria CN's II-XI intact bilaterally Psychiatric: A+Ox3, euthymic affect Results & Data Vital Signs (Past 12 Hours) Vital Signs Temp Pulse Resp BP Pulse Ox 07/29/19 08:40 92 H 99/60 L 07/29/19 07:46 37.0 C 104 H 19 96/58 L 91 07/29/19 04:01 36.9 C 101 H 16 93/57 L 91 07/29/19 00:14 36.7 C 101 H 18 92/54 L 93
--- NOTE | 2019-07-29 10:42 | Cardiology Progress Note ---
Date of Service July 29, 2019 Assessment & Plan (1) Acute respiratory failure with hypoxia: Patient still with persistent hypoxia no profound diuresis overnight. Patient has planned right-sided thoracentesis today Will likely require additional diuretic cautiously given low blood pressure. Heart rates remain elevated but in sinus rhythm Plan: Continue current dosing of colchicine, discontinue metoprolol tartrate. Begin metoprolol succinate at 12.5 mg p.o. daily likely to be increased to twice daily dosing and depending on blood pressure tolerance Patient will likely need well additional low-dose diuretics that we will hold anticipation of thoracentesis Continue anticoagulation with warfarin following thoracentesis (2) Kenyon's syndrome: Tolerating colchicine so far (3) Pericardial effusion without cardiac tamponade: (4) S/P thoracentesis: (5) Pulmonary edema with congestive heart failure with preserved left ventricular function: (6) S/P AVR (aortic valve replacement): 63-year-old patient status post aortic valve replacement on July 04. Hospital course complicated by left atrial bleeding requiring reoperation with left atrial clip placement and paroxysmal atrial fibrillation. Prescribed short-term anticoagulation with Coumadin due to paroxysmal atrial fibrillation. INR subtherapeutic. Patient underwent thoracentesis yesterday for recurrent left-sided pleural effusion with drainage of 1.5 L of serosanguineous fluid. I discussed the case with Dr. Prado CT surgery. There is no evidence of empyema and the fluid was not sent for analysis or culture. Patient remains afebrile however notes cough. I suspect chest x-ray findings in conjunction with hypoxia or secondary to reexpansion pulmonary edema. Recommend Lasix 20 mill grams IV x1 now. Beta- naya will be titrated to 25 mg twice daily to improve heart rate control and hopefully avoid further episodes of atrial fibrillation. Patient was intolerant to amiodarone during recent hospital stay at [facility] in [place] due to severe nausea and vomiting. Recommend low-dose colchicine due to evidence of Kneyon's syndrome with recurrent pleural effusion and small circumferential pericardial effusion per echocardiogram. CT of the chest ordered. If the pericardial effusion remains small, no need for repeat echocardiogram currently which was performed 07/26 at [facility]. 07/29/2019 as outlined above Subjective Patient was seen and examined, chart medications, telemetry reviewed. Still somewhat hypoxic but otherwise no acute complaints. No pleuritic pain or chest discomfort. Has planned right-sided thoracentesis today Physical Exam Constitutional: WD/WN, vitals as above Eyes: PERRL, conjunctivae normal, anicteric sclerae ENMT: external ear and nose normal, oropharynx normal Neck: trachea midline, no thyromegaly Respiratory: normal respiratory effort, lungs clear to auscultation Cardiovascular: Rate/Rhythm: regular rate and regular rhythm Heart Sounds: normal S1, normal S2 and + murmur (Grade 1-2 or 6 systolic, no diastolic ); no gallop Palpation: normal PMI Vessels: normal carotid upstroke and radial pulses present; no JVD, no carotid bruit and no femoral bruit Extremities: no edema Chest (Breasts): Additional Comments: Midline incision intact without erythema or drainage, healing well Gastrointestinal (Abdomen): normal bowel sounds, soft, nontender, no hepatosplenomegaly Musculoskeletal: no cyanosis or clubbing, extremities motor strength 5/5 Skin: no rashes, warm and dry Neurologic: PERRL, EOMI, accommodation nl, no face palsy, no dysarthria Psychiatric: A+Ox3, euthymic affect Results & Data Vital Signs (Past 12 Hours) Vital Signs Temp Pulse Resp BP Pulse Ox 07/29/19 08:40 92 H 99/60 L 07/29/19 07:46 37.0 C 104 H 19 96/58 L 91 07/29/19 04:01 36.9 C 101 H 16 93/57 L 91 07/29/19 00:14 36.7 C 101 H 18 92/54 L 93 Laboratory Results Laboratory Results - last 24 hr 07/28/19 07/29/19 07/29/19 12:30 05:29 05:29 WBC 10.84 H RBC 3.44 L Hgb 9.7 L Hct 30.3 L MCV 88.1 MCH 28.2 MCHC 32.0 RDW Std Deviation 46.1 RDW Coeff of Daphne 14.2 Plt Count 457 H MPV 8.9 Immature Gran % (Auto) 0.7 Neut % (Auto) 74.3 Lymph % (Auto) 8.9 Adams % (Auto) 7.9 Eos % (Auto) 7.7 Baso % (Auto) 0.5 Immature Gran # (Auto) 0.08 H Neut # (Auto) 8.05 H Lymph # (Auto) 0.97 L Adams # (Auto) 0.86 H Eos # (Auto) 0.83 H Baso # (Auto) 0.05 PT 15.3 H INR 1.5 H Sodium Potassium Chloride Carbon Dioxide Anion Gap BUN Creatinine Est Cr Clr Drug Dosing Est GFR ( Amer) Est GFR (Non-Af Amer) BUN/Creatinine Ratio Glucose Calcium Total Bilirubin AST ALT Alkaline Phosphatase Lactate Dehydrogenase Total Protein Albumin Globulin Albumin/Globulin Ratio Urine Legionella Ag Pending 07/29/19 07/29/19 05:29 05:29 WBC RBC Hgb Hct MCV MCH MCHC RDW Std Deviation RDW Coeff of Daphne Plt Count MPV Immature Gran % (Auto) Neut % (Auto) Lymph % (Auto) Adams % (Auto) Eos % (Auto) Baso % (Auto) Immature Gran # (Auto) Neut # (Auto) Lymph # (Auto) Adams # (Auto) Eos # (Auto) Baso # (Auto) PT INR Sodium 139 Potassium 3.6 Chloride 102 Carbon Dioxide 30 Anion Gap 7.0 BUN 16 Creatinine 1.04 Est Cr Clr Drug Dosing 69.7 Est GFR ( Amer) 87.5 Est GFR (Non-Af Amer) 75.5 BUN/Creatinine Ratio 15.3 Glucose 99 Calcium 7.9 L Total Bilirubin 0.6 AST 12 L ALT 24 Alkaline Phosphatase 65 Lactate Dehydrogenase 302 H Total Protein 6.2 L Albumin 2.1 L Globulin 4.1 H Albumin/Globulin Ratio 0.5 L Urine Legionella Ag
--- NOTE | 2019-07-29 11:06 | Pulmonology Progress Note ---
Date of Service July 29, 2019 Assessment & Plan (1) Acute respiratory failure with hypoxia: Likely sec to component of b/l Pleural effusion with mild pulmonary edema sec to HFpEF Patient is recent post open heart for Aortic valve replacement in early june 2019. Patient also has atelectasis/consolidation of LLL appreciated on US done at bedside. PCT: negative. ESR:>90 CRP: 9.52 CT chest with the patient reviewed which showed patient has has left lower lobe dense consolidation. We will continue with antibiotics for the time being. c/w O2 supplementation. Keep SPO2 90-94%. BiPAP qhs and PRN SOB Diuresis as tolerated, strict in's and out's Cardio consulted. (2) Pleural effusion: B/l Pleural effusion, infectious etiology very unlikely Patient had tap at [facility] 07/27/19 where 1500ml of sero-sanguinous fluid was removed and patient was sent home. Fluid was not sent for labs apparently on getting information from hospitalist. Given the history of recent cardiotomy. Post cardiotomy injury syndrome is high in the differential along with post-thoracenthesis reexpansion pulmonary edema. Although patient has minimal chest pain. will order ESR:>90 and CRP:9.52 . On colchicine Patient still requiring 4 L of oxygen to maintain saturation around 92%. We will do a thoracentesis of the right side today. (3) Pulmonary edema with congestive heart failure with preserved left ventricular function: plan as above (4) Pericardial effusion without cardiac tamponade: (5) Bicuspid aortic valve: Subjective Patient seen and examined at bedside. No acute distress, no adverse events overnight. Saturating 92% on 4 L nasal cannula with heart rate of 93 at rest. States that the coughing is decreased in intensity. Still gets short of breath on lying flat. Denies any dizziness or headache, no nausea or vomiting. Explained to the patient that he still has moderate sized right-sided pleural effusion that might be a factor causing his hypoxia along with the left lower lobe pneumonia. Plan is to do thoracentesis today. Patient's INR is 1.5 which is acceptable. Risk and benefit of the procedure explained to the patient. Procedure consent was signed. Review of Systems Review of Systems: All systems reviewed & are unremarkable except as noted in HPI & below Physical Exam Physical Exam: Constitutional: No acute distress HEENT: EOMI, PERRLA, No JVD Respiratory system: decreased air entry bilaterally, more decreased on the right. + crackles b/l LL, more crackles on the left, no wheeze, no rhonchi CVS: S1-S2 positive, no murmurs or gallops, Midline sternotomy scar +ne, non indurated Abdomen: Soft, nontender, nondistended, positive bowel sounds x4 Extremities: +2 pulses bilaterally radialis/ dorsalis pedis, no edema, no cyanosis Neuro: Awake alert oriented x3 Psych: Normal mood and affect G/U: No Olivares Neurologic: PERRL, EOMI, accommodation nl, no face palsy, no dysarthria Lymphatic: no cervical or axillary lymphadenopathy Results & Data Vital Signs (Past 12 Hours) Vital Signs Temp Pulse Resp BP Pulse Ox 07/29/19 08:40 92 H 99/60 L 07/29/19 07:46 37.0 C 104 H 19 96/58 L 91 07/29/19 04:01 36.9 C 101 H 16 93/57 L 91 07/29/19 00:14 36.7 C 101 H 18 92/54 L 93 Laboratory Results 07/29/19 05:29 07/29/19 05:29 PG Care Time/CCT Total # of Minutes Spent Total Time Spent with Patient: Total time spent is greater than 50% in coordina tion of care (as documented) at patient's floor/unit and/or counseling patient:
[2019-07-29] MEDS: METOPROLOL SUCC 25MG EXT REL TAB PO SCH (11:27)
[2019-07-29 12:31] LABS: Glucose Pleural Fluid 90 mg/dl
--- NOTE | 2019-07-29 12:38 | XRay Report ---
XR chest 1V portable CLINICAL HISTORY: S/P Thoracentesis COMPARISON STUDY: 07/27/2019 FINDINGS: There are postsurgical changes of a midline sternotomy. Cardiac and mediastinal contours re main stable. There is interval decrease in the size the right pleural effusion. There is a small left pleural effusion. There are persistent extensive left lower lung airspace opacities.[ IMPRESSION: 1. Extensive left lower lung zone airspace opacities suspicious for pneumonia 2. Small bilateral pleural effusions 3. No evidence of pneumothorax status post thoracentesis Electronically signed by: Harshad Dumas M.D. 07/29/2019 12:37 PM
[2019-07-29 12:40] LABS: Amylase Pleural Fluid 39 U/L; LDH Pleural Fluid 396 U/L; Total Protein Pleural Fluid 3.6 g/dl; Triglyceride Pleural Fluid 18 mg/dl
[2019-07-29 12:56] LABS: Albumin Level 2.2 gm/dl (3.4-5.0); Bilirubin,Total 0.4 mg/dl (0.2-1); Total Protein 6.5 gm/dl (6.4-8.2)
[2019-07-29] MEDS ORDERED: VANCOMYCIN TROUGH ONE (13:30)
[2019-07-29 13:48] LABS: Appearance Pleural Fluid BLOODY; Color Pleural Fluid RED; Mononuclear WBC Pleural 85.9 %; Polynuclear WBC Pleural 14.1 %; RBC Pleural Fluid (A) 156000 /uL; Source Pleural Fluid RIGHT LUNG; WBC Pleural Fluid (A) 3085 /uL
--- NOTE | 2019-07-29 14:10 | Procedure Note ---
Procedure Note Date of Service July 29, 2019 Procedure: Diagnostic therapeutic ultrasound-guided catheter thoracentesis [employer]: Dr. Cassandra Lindsey Indication: Pleural effusion Consent: Signed by patient and verified with time-out prior to procedure Anesthesia: 1% lidocaine without epinephrine local. Procedure: Consent was verified and timeout performed. Appropriate imaging studies were reviewed prior to the procedure. Patient was placed in a seated position and limited thoracic ultrasound was performed of the right chest. See separate imaging. Appropriate site above the diaphragm for thoracentesis was selected. The skin was prepped and draped in normal sterile fashion. Lidocaine was used for local analgesia. Fluid was aspirated via the finder needle. A small skin jeb was made with the scalpel and the catheter over the needle apparatus was advanced over the rib into the pleural space. Using the syringe one-way valve system, a total of 1400 mL's of hemorrhagic fluid was removed. The catheter was removed and observed to be intact. A sterile dressing was applied. Post procedure chest x-ray was ordered. Post procedure lung ultrasound showed good lung sliding on the right side. Fluid was sent for labs, culture and cytology. The patient tolerated the procedure without obvious complication Blood loss: Less than 2 cc Coding CPT Codes Pulmonary/Thoracic - Pulmonary and Thoracic: Thoracentesis w imaging ([id number])
--- NOTE | 2019-07-29 14:52 | Pharmacy Report ---
Pharmacy Abx Dose Short Note - Date of Service July 29, 2019 - Assessment & Plan Assessment 63 year old M receiving Vancomycin 1,000mg Q12H for treatment of pulmonary source. Day # 3 of antimicrobial therapy. Pt had thoracentesis today. Cultures pending. Blood cx neg x24HRS MRSA nasal swab negative - deescalate when cultures result. Laboratory Tests 07/29/19 13:09 Vancomycin Trough 10.2 Plan Vancomycin * Trough level of 10.2 mcg/mL is subtherapeutic, however this level was obtained only prior to the 3rd dose and is not truly reflective of steady state. Estimate level would have been slightly higher than this if obtained with next dose, but still would have been subtherapeutic. Given patient's size and renal function; pt may clear faster than population kinetics would suggest. * Change dose to Vancomycin 1000 mg IV every 10 hours * Goal trough level : 15 to 20 mcg/mL * Will recheck trough in 3-4 doses if patient is still on Vancomycin. Pharmacy will continue to follow and will adjust dose/frequency as necessary. Thank you.
[2019-07-29] MEDS ORDERED: WARFARIN SOD 5 MG TAB PO ONE (22:45)
[2019-07-30] MEDS: VANCOMYCIN HCL 1,000 MG in SODIUM CHLORIDE 0.9% 250 ML IV SCH ×3 (01:00→19:36)
[2019-07-30] MEDS: PIPERACILLIN/TAZOBACTAM 4.5 GM in DEXTROSE 5% 100 ML IV SCH (03:22)
[2019-07-30 05:42] LABS: Basophils # (auto) 0.04 K/uL (0-0.2); Basophils % (auto) 0.5 %; Eosinophils # (auto) 0.71 K/uL (0-0.5); Eosinophils % (auto) 8.5 %; Hematocrit (blood only) 28.4 % (42-52); Hemoglobin 9.3 g/dL (14.0-18.0); Immature Granulocytes # (auto) 0.03 K/uL (0.00-0.02); Immature Granulocytes % (auto) 0.4 %; Lymphocytes # (auto) 0.98 K/uL (1.2-3.4); Lymphocytes % (auto) 11.8 %; Mean Corpuscular Hemoglobin 28.5 pg (25-34); Mean Corpuscular Hgb Conc 32.7 g/dL (32-36); Mean Corpuscular Volume 87.1 fL (80-100); Mean Platelet Volume 8.6 fL (7.4-10.4); Monocytes # (auto) 0.74 K/uL (0.11-0.59); Monocytes % (auto) 8.9 %; Neutrophils # (auto) 5.83 K/uL (1.4-6.5); Neutrophils % (auto) 69.9 %; Platelet Count 453 K/uL (130-400); RDW Coefficient of Variation 14.1 % (11.5-14.5); RDW Standard Deviation 44.9 fL (36.4-46.3); Red Blood Count 3.26 M/uL (4.7-6.1); White Blood Count 8.33 K/uL (4.8-10.8)
[2019-07-30 05:52] LABS: INR 1.4 (0.9-1.1); Prothrombin Time 14.1 Seconds (9.0-12.0)
[2019-07-30 06:16] LABS: BUN Creatinine Ratio 13.8 (10-20); Calcium 7.8 mg/dl (8.5-10.1); Creatinine Clr Calc Pharmacy 76.2 ml/min; Est GFR (African American) 98.9; Est GFR (Non-African American) 85.3; Potassium 3.4 mmol/L (3.5-5.1)
[2019-07-30] MEDS ORDERED: POTASSIUM CHLORIDE 20 MEQ TABCR PO STA (07:17)
[2019-07-30] MEDS: FAMOTIDINE 20 MG TAB PO SCH ×2 (08:38→19:35)
[2019-07-30] MEDS: COLCHICINE 0.6 MG TAB PO SCH (08:39)
[2019-07-30] MEDS: METOPROLOL SUCC 25MG EXT REL TAB PO SCH ×2 (08:40→19:35)
--- NOTE | 2019-07-30 10:08 | XRay Report ---
XR chest 1V portable HISTORY: Pleural effusion. Follow-up. COMPARISON: Chest 07/29/2019. FINDINGS: Small bilateral pleural effusions persist. Left lower lobe airspace opacity has slightly im proved. The heart is stable in size. There are poststernotomy changes. No pneumothorax. Faint patchy right basilar airspace opacities. IMPRESSION: Bibasilar airspace opacities likely representing a pneumonia. This is improved on the left. Electronically signed by: Rogelio Coelho M.D. 07/30/2019 10:07 AM
[2019-07-30] MEDS: ASPIRIN 81 MG ECTAB PO SCH (10:45)
[2019-07-30] MEDS: PIPERACILLIN/TAZOBACTAM 3.375 GM in DEXTROSE 5% 100 ML IV SCH ×2 (10:46→19:36)
--- NOTE | 2019-07-30 10:54 | Cardiology Progress Note ---
Date of Service July 30, 2019 Assessment & Plan (1) Acute respiratory failure with hypoxia: Patient gradually improving. Oxygen saturations better still on IV antibiotics with residual rhonchi left base on auscultation. Recommendations: Increase Toprol-XL to 12.5 mill grams twice per day, restart anticoagulation with warfarin, continue antibiotics and pulmonary toilet (2) Kenyon's syndrome: Tolerating colchicine so far (3) Pericardial effusion without cardiac tamponade: (4) S/P thoracentesis: (5) Pulmonary edema with congestive heart failure with preserved left ventricular function: (6) S/P AVR (aortic valve replacement): 63-year-old patient status post aortic valve replacement on July 04. Hospital course complicated by left atrial bleeding requiring reoperation with left atrial clip placement and paroxysmal atrial fibrillation. Prescribed short-term anticoagulation with Coumadin due to paroxysmal atrial fibrillation. INR subtherapeutic. Patient underwent thoracentesis yesterday for recurrent left-sided pleural effusion with drainage of 1.5 L of serosanguineous fluid. I discussed the case with Dr. Prado CT surgery. There is no evidence of empyema and the fluid was not sent for analysis or culture. Patient remains afebrile however notes cough. I suspect chest x-ray findings in conjunction with hypoxia or secondary to reexpansion pulmonary edema. Recommend Lasix 20 mill grams IV x1 now. Beta- naya will be titrated to 25 mg twice daily to improve heart rate control and hopefully avoid further episodes of atrial fibrillation. Patient was intolerant to amiodarone during recent hospital stay at [facility] in [place] due to severe nausea and vomiting. Recommend low-dose colchicine due to evidence of Kenyon's syndrome with recurrent pleural effusion and small circumferential pericardial effusion per echocardiogram. CT of the chest ordered. If the pericardial effusion remains small, no need for repeat echocardiogram currently which was performed 07/26 at [facility]. 07/30/2019 as outlined above Subjective Patient seen and examined, chart, medications, telemetry reviewed. Has had be tter oxygenation but with some fluctuations since right-sided thoracentesis yesterday. No significant chest pains tachypalpitations or dizziness. Heart rate still occasionally fast and sinus tachycardia Physical Exam Constitutional: WD/WN, vitals as above Eyes: PERRL, conjunctivae normal, anicteric sclerae ENMT: external ear and nose normal, oropharynx normal Neck: trachea midline, no thyromegaly Respiratory: Persistent rhonchi left base Cardiovascular: Rate/Rhythm: regular rate and regular rhythm Heart Sounds: normal S1, normal S2 and + murmur (Grade 2/ 6 systolic, no diastolic ); no gallop Palpation: normal PMI Vessels: normal carotid upstroke and radial pulses present; no JVD, no carotid bruit and no femoral bruit Extremities: no edema Gastrointestinal (Abdomen): normal bowel sounds, soft, nontender, no hepatosplenomegaly Musculoskeletal: no cyanosis or clubbing, extremities motor strength 5/5 Skin: no rashes, warm and dry Neurologic: PERRL, EOMI, accommodation nl, no face palsy, no dysarthria Psychiatric: A+Ox3, euthymic affect Results & Data Vital Signs (Past 12 Hours) Vital Signs Temp Pulse Pulse Resp BP Pulse Ox 07/30/19 09:46 89 L 07/30/19 08:00 88 07/30/19 07:50 36.7 C 139 H 16 91 07/30/19 04:52 37.2 C 95 H 19 97/53 L 91 07/30/19 00:00 109 H 07/29/19 23:00 37.2 C 97 H 17 92/56 L 92
--- NOTE | 2019-07-30 11:18 | Pulmonology Progress Note ---
Date of Service July 30, 2019 Assessment & Plan (1) Acute respiratory failure with hypoxia: Multiple etiology likely sec to left lower lobe pneumonia along with component of b/l Pleural effusion with mild pulmonary edema sec to HFpEF Patient is recent post open heart for Aortic valve replacement in early june 2019. Patient also has atelectasis/consolidation of LLL appreciated on US done at bedside. PCT: negative. ESR:>90 CRP: 9.52 CT chest with the patient reviewed which showed patient has has left lower lobe dense consolidation. We will continue with antibiotics for the time being. Status post thoracentesis of the right side on 07/29/2019 which showed exudative hemorrhagic fluid looks like a post cardiotomy fluid.Laboratory Tests 07/29/19 07/29/19 12:05 12:05 Pleural pH 7.44 H Pleural WBC 3085 Pleural RBC [id number] Pleural Polynuclear % 14.1 Pleural Mononuclear % 85.9 Pleural Total Protein 3.6 Pleural LDH 396 Pleural Glucose 90 Pleural Amylase 39 Pleural Triglycerides 18 c/w O2 supplementation. Keep SPO2 90-94%. BiPAP qhs and PRN SOB Diuresis as tolerated, strict in's and out's Cardio on board Patient clinically doing better from pulmonary perspective. Repeat chest x-ray tomorrow in the morning. If there is improving aeration. Give antibiotics for total 7 days. Needs to follow-up with the pulmonary to follow-up on the chest x-ray. Continue with colchicine. (2) Pleural effusion: B/l Pleural effusion, infectious etiology very unlikely Patient had tap at [place] 07/27/19 where 1500ml of sero-sanguinous fluid was removed and patient was sent home. Fluid was not sent for labs apparently on getting information from hospitalist. Given the history of recent cardiotomy. Post cardiotomy injury syndrome is high in the differential along with post-thoracenthesis reexpansion pulmonary edema. Although patient has minimal chest pain. will order ESR:>90 and CRP:9.52 . On colchicine Status post thoracentesis 1.4 L removed on 07/29/2019 showing hemorrhagic fluid. Exudative. Laboratory Tests 07/29/19 07/29/19 12:05 12:05 Pleural pH 7.44 H Pleural WBC 3085 Pleural RBC [id number] Pleural Polynuclear % 14.1 Pleural Mononuclear % 85.9 Pleural Total Protein 3.6 Pleural LDH 396 Pleural Glucose 90 Pleural Amylase 39 Pleural Triglycerides 18 (3) Pulmonary edema with congestive heart failure with preserved left rosalba tricular function: plan as above (4) Pericardial effusion without cardiac tamponade: (5) Bicuspid aortic valve: Subjective Patient seen and examined at bedside. No acute distress, no adverse events overnight. Patient feeling much better. Shortness of breath is improved. Saturating 97% on room air with heart rate of 94 at rest. Cough is decreased in intensity, phlegm is decreasing in frequency. Denies any nausea or vomiting, no headache. Using incentive spirometry. Review of Systems Review of Systems: All systems reviewed & are unremarkable except as noted in HPI & below Physical Exam Physical Exam: Constitutional: No acute distress HEENT: EOMI, PERRLA Respiratory system: Decreased air entry on the left side, positive crackles bilateral lower lobes more crackles heard on the left lower lobe, no wheeze, no rhonchi CVS: S1-S2 positive, no murmurs or gallops, bioprosthetic heart valve sound appreciated Abdomen: Soft, nontender, nondistended, positive bowel sounds x4 Extremities: +2 pulses bilaterally radialis/ dorsalis pedis, no edema, no cyanosis Neuro: Awake alert oriented x3 Psych: Normal mood and affect G/U: No Olivares Neurologic: PERRL, EOMI, accommodation nl, no face palsy, no dysarthria Lymphatic: no cervical or axillary lymphadenopathy Results & Data Vital Signs (Past 12 Hours) Vital Signs Temp Pulse Pulse Resp BP Pulse Ox 07/30/19 09:46 89 L 07/30/19 08:00 88 07/30/19 07:50 36.7 C 139 H 16 91 07/30/19 04:52 37.2 C 95 H 19 97/53 L 91 07/30/19 00:00 109 H Laboratory Results Laboratory Tests 07/29/19 07/29/19 12:05 12:05 Pleural pH 7.44 H Pleural WBC 3085 Pleural RBC [id number] Pleural Polynuclear % 14.1 Pleural Mononuclear % 85.9 Pleural Total Protein 3.6 Pleural LDH 396 Pleural Glucose 90 Pleural Amylase 39 Pleural Triglycerides 18 07/30/19 05:28 07/30/19 05:28 Diagnostic Findings Chest x-ray from today reviewed: Shows improvement in left lower lobe consolidation. Right side of the lung looks well aerated status post thoracentesis yesterday. PG Care Time/CCT Total # of Minutes Spent Total Time Spent with Patient: Total time spent is greater than 50% in coordination of care (as documented) at patient's floor/unit and/or counseling patient:
--- NOTE | 2019-07-30 11:18 | Hospitalist Progress Note ---
Date of Service July 30, 2019 Assessment & Plan (1) Acute respiratory failure with hypoxia: -as per admission HPI "This is a 63-year-old male with past medical history significant for nonrheumatic aortic valve stenosis, status post recent noninvasive aortic valve replacement with pig valve, paroxysmal atrial fibrillation, benign prostatic hypertrophy and osteoarthritis who comes with shortness of breath. On 07/04/2019, he had minimally invasive aortic valve replacement with pig valve for severe aortic stenosis at [place]. Postoperatively, he was extubated, chest tubes were removed and he experienced bleeding from the left atrial appendage, and was brought back to the Operating Room. A left atrial appendage clip was placed to ligate the bleeding and had atrial fibrillation postoperatively. He was initially started on amiodarone, but it was discontinued due to nausea and he was started on beta-naya and also on heparin and currently he is on Coumadin. Patient had postoperatively follow up with thoracic surgery, he was found to have pleural effusions and his Coumadin was held and he is status post left thoracocentesis on 07/27/2019 was drained about 1500 mL of bloody and serosanguineous at out patient office and he was discharged home on 08/06/19." -subsequently patient had more cough and shortness of breath and patient presented to the ED at [facility] on 07/27/19 with acute respiratory failure with hypoxia -patient had 1400 mL's of hemorrhagic fluid was removed removed from right sided thoracentesis on 07/29/19, fluid analysis of exudative fluid. continue Zosyn and Vancomycin -patient is on room air by 07/30/19 (2) Pleural effusion: -underwent thoracentesis yesterday for recurrent left-sided pleural effusion with drainage of 1.5 L of serosanguineous fluid on 07/27/19 prior to the [facility] ED visit; cardiology discussed the case with Dr. Prado CT surgery and was informed that there is no evidence of empyema during that thoracentesis and the fluid was not sent for analysis or culture -CXR 07/27/19: Bilateral pleural effusions. Bilateral asymmetric airspace opacities left greater than right -CT scan on 07/28/19: There is dense airspace consolidation throughout the left lower lobe with minimal consolidation present in the lingula. There is a moderate right pleural effusion with consolidative change at the right lung base. This could present atelectasis versus pneumonia. Only trace pleural effusion is seen on the left. Small pericardial effusion -received IV Lasix 20 mg on 07/28/19 -patient has been empirically on Zosyn and Vancomycin -patient had 1400 mL's of hemorrhagic fluid was removed removed from right sided thoracentesis on 07/29/19, fluid analysis of exudative fluid. continue Zosyn and Vancomycin -patient is on room air by 07/30/19. will continue Zosyn and Vancomycin for now while pleural fluid cultures are pending or unless otherwise recommended by pulmonary service (3) Pericardial effusion without cardiac tamponade: (4) Kenyon's syndrome: -Cardiology started low-dose colchicine due to evidence of Kenyon's syndrome with recurrent pleural effusion and pericardial effusion -echocardiogram on 07/28/19 as a moderate sized loculated right lateral pericardial effusion -continue colchicine 0.6 mg daily (5) S/P AVR (aortic valve replacement): -Severe aortic valve stenosis, recent aortic valve replacement, postoperative complication by left atrial appendage site bleeding and was clipped -echocardiogram on 07/28/19 shows functional bioprosthetic valve -continue BID metoprolol -discussed with cardiology service Dr. Alejandro and recommends 6 to 12 months of Beta naya -because of bioprosthetic valve and recent paroxysmal atrial fibrillation, cardiology service Dr. Alejandro estimates 3 months of systemic anticoagulation with coumadin. Coumadin 4 mg daily ordered starting on 07/30/19 Paroxysmal atrial fibrillation -patient had atrial fibrillation initially after the aortic valve replacement before returning to sinus rhythm -has been in sinus rhythm and continues to be in sinus rhythm after admission to [facility] DVT prophylaxis: SCDs, aspirin. encourage ambulation, Coumadin 4 mg daily ordered starting on 07/30/19 Subjective Patient breathing on room air and able to ambulate on room air. no chest pain. no dizziness. no lightheadedness. no palpitations. no abdominal pain. no vomiting Physical Exam Constitutional: comfortable Eyes: PERRL, conjunctivae normal, anicteric sclerae EOM intact bilaterally ENMT: external ear and nose normal, oropharynx normal Neck: normal visual inspection Respiratory: normal respiratory effort Cardiovascular: RRR, no murmur, no edema Gastrointestinal (Abdomen): normal bowel sounds, soft, nontender, no hepatosplenomegaly Musculoskeletal: Head/Neck/Chest: normocephalic and head atraumatic Neurologic: PERRL, EOMI, accommodation nl, no face palsy, no dysarthria CN's II-XI intact bilaterally Psychiatric: A+Ox3, euthymic affect Results & Data Vital Signs (Past 12 Hours) Vital Signs Temp Pulse Pulse Resp BP Pulse Ox 07/30/19 09:46 89 L 07/30/19 08:00 88 07/30/19 07:50 36.7 C 139 H 16 91 07/30/19 04:52 37.2 C 95 H 19 97/53 L 91 07/30/19 00:00 109 H
[2019-07-30] MEDS ORDERED: WARFARIN SOD 4 MG TAB PO SCH (16:00)
[2019-07-31] MEDS: PIPERACILLIN/TAZOBACTAM 3.375 GM in DEXTROSE 5% 100 ML IV SCH (04:20)
[2019-07-31] MEDS ORDERED: VANCOMYCIN TROUGH ONE (05:30)
[2019-07-31 05:41] LABS: Basophils # (auto) 0.03 K/uL (0-0.2); Basophils % (auto) 0.4 %; Eosinophils # (auto) 0.73 K/uL (0-0.5); Eosinophils % (auto) 10.1 %; Hematocrit (blood only) 29.5 % (42-52); Hemoglobin 9.6 g/dL (14.0-18.0); Immature Granulocytes # (auto) 0.03 K/uL (0.00-0.02); Immature Granulocytes % (auto) 0.4 %; Lymphocytes # (auto) 1.04 K/uL (1.2-3.4); Lymphocytes % (auto) 14.3 %; Mean Corpuscular Hemoglobin 28.5 pg (25-34); Mean Corpuscular Hgb Conc 32.5 g/dL (32-36); Mean Corpuscular Volume 87.5 fL (80-100); Mean Platelet Volume 8.9 fL (7.4-10.4); Monocytes # (auto) 0.69 K/uL (0.11-0.59); Monocytes % (auto) 9.5 %; Neutrophils # (auto) 4.74 K/uL (1.4-6.5); Neutrophils % (auto) 65.3 %; Platelet Count 446 K/uL (130-400); RDW Coefficient of Variation 14.1 % (11.5-14.5); RDW Standard Deviation 45.3 fL (36.4-46.3); Red Blood Count 3.37 M/uL (4.7-6.1); White Blood Count 7.26 K/uL (4.8-10.8)
[2019-07-31 05:56] LABS: BUN Creatinine Ratio 10.7 (10-20); Creatinine Clr Calc Pharmacy 78.6 ml/min; Est GFR (African American) 104.2; Est GFR (Non-African American) 89.9; Potassium 3.8 mmol/L (3.5-5.1)
[2019-07-31] MEDS: VANCOMYCIN HCL 1,000 MG in SODIUM CHLORIDE 0.9% 250 ML IV SCH (06:22)
--- NOTE | 2019-07-31 07:25 | XRay Report ---
XR chest 1V portable CLINICAL HISTORY: Abnormal chest x-ray. Pneumonia. FOLLOW-UP EXAMINATION COMPARISON STUDY: 07/30/2019 FINDINGS: There are postsurgical changes of a midline sternotomy. There is very slight improvement in the bilateral pulmonary airspace opacities. There are trace bilateral pleural effusions.[ IMPRESSION: 1. Slight improvement in the bilateral pulmonary airspace opacities. Small bilateral pleural effusion s. Electronically signed by: Harshad Dumas M.D. 07/31/2019 7:24 AM
[2019-07-31] MEDS: METOPROLOL SUCC 25MG EXT REL TAB PO SCH (08:25)
[2019-07-31] MEDS: ASPIRIN 81 MG ECTAB PO SCH (08:25)
[2019-07-31] MEDS: COLCHICINE 0.6 MG TAB PO SCH (08:25)
[2019-07-31] MEDS: FAMOTIDINE 20 MG TAB PO SCH (08:26)
--- NOTE | 2019-07-31 10:15 | Pulmonology Progress Note ---
Date of Service July 31, 2019 Assessment & Plan (1) Acute respiratory failure with hypoxia: Patient does not appear infected at this time. Recommend to hold abx. Likely etiology of hypoxemia was pleural effusions with passive atelectasis and Kenyon syndrome vs re-expansion pulm edema. Will need follow up on pleural fluid cytology. I think he is ok for discharge with pulmonary follow up with Dr. Lindsey in 1-2 weeks. Obtain cxr prior to pulmonary visit. Thank you for the consult. Laboratory Tests 07/29/19 07/29/19 12:05 12:05 Pleural pH 7.44 H Pleural WBC 3085 Pleural RBC 275700 Pleural Polynuclear % 14.1 Pleural Mononuclear % 85.9 Pleural Total Protein 3.6 Pleural LDH 396 Pleural Glucose 90 Pleural Amylase 39 Pleural Triglycerides 18 c/w O2 supplementation. Keep SPO2 90-94%. BiPAP qhs and PRN SOB Diuresis as tolerated, strict in's and out's Cardio on board Patient clinically doing better from pulmonary perspective. Repeat chest x-ray tomorrow in the morning. If there is improving aeration. Give antibiotics for total 7 days. Needs to follow-up with the pulmonary to follow-up on the chest x-ray. Continue with colchicine. Present on Admission?: Yes (2) Pleural effusion: B/l Pleural effusion, infectious etiology very unlikely Patient had tap at [place] 07/27/19 where 1500ml of sero-sanguinous fluid was removed and patient was sent home. Fluid was not sent for labs apparently on getting information from hospitalist. Given the history of recent cardiotomy. Post cardiotomy injury syndrome is high in the differential along with post-thoracenthesis reexpansion pulmonary edema. Although patient has minimal chest pain. On colchicine Status post thoracentesis 1.4 L removed on 07/29/2019 showing hemorrhagic fluid. Exudative. Laboratory Tests 07/29/19 07/29/19 12:05 12:05 Pleural pH 7.44 H Pleural WBC 3085 Pleural RBC [id number] Pleural Polynuclear % 14.1 Pleural Mononuclear % 85.9 Pleural Total Protein 3.6 Pleural LDH 396 Pleural Glucose 90 Pleural Amylase 39 Pleural Triglycerides 18 (3) Pulmonary edema with congestive heart failure with preserved left ventricular function: plan as above (4) Pericardial effusion without cardiac tamponade: (5) Bicuspid aortic valve: Subjective Patient ambulating without issue. Sating well on RA. Denies dyspnea. Occasional minimal soreness in chest. No nausea or vomiting. No fevers. Physical Exam Constitutional: WD/WN, vitals as above Eyes: PERRL, conjunctivae normal, anicteric sclerae ENMT: external ear and nose normal, oropharynx normal Neck: normal visual inspection Respiratory: normal respiratory effort, lungs clear to auscultation Cardiovascular: RRR, no murmur, no edema Gastrointestinal (Abdomen): normal bowel sounds, soft, nontender, no hepatosplenomegaly Musculoskeletal: no cyanosis or clubbing, extremities motor strength 5/5 Neurologic: PERRL, EOMI, accommodation nl, no face palsy, no dysarthria Lymphatic: no cervical or axillary lymphadenopathy Results & Data Vital Signs (Past 12 Hours) Vital Signs Temp Pulse Pulse Resp BP BP Pulse Ox 07/31/19 06:58 98.4 F 87 19 88/63 L 93 07/31/19 04:20 99.0 F 88 20 101/56 L 94 07/30/19 23:44 99.0 F 91 H 18 103/53 L 94 07/30/19 22:20 100 H I personally reviewed CBC, PCT, pleural fluid studies and CXR. PG Care Time/CCT Total # of Minutes Spent Total Time Spent with Patient: Total time spent is greater than 50% in coordination of care (as documented) at patient's floor/unit and/or counseling patient:
--- NOTE | 2019-07-31 11:01 | Cardiology Progress Note ---
Date of Service July 31, 2019 Assessment & Plan (1) Acute respiratory failure with hypoxia: Patient improved status post bilateral thoracentesis. Oxygenation now better chest x-ray improved reflecting post expansion pulmonary edema on initial presentation Recommendations: Increase Toprol-XL to 12.5 mill grams twice per day, restart anticoagulation with warfarin, and pulmonary toilet Patient has scheduled follow-up with cardiology post hospital discharge will make arrangements for initial cardiac rehab evaluation (2) Kenyon's syndrome: Tolerating colchicine so far (3) Pericardial effusion without cardiac tamponade: (4) S/P thoracentesis: (5) Pulmonary edema with congestive heart failure with preserved left ventricular function: (6) S/P AVR (aortic valve replacement): 63-year-old patient status post aortic valve replacement on July 04. Hospital course complicated by left atrial bleeding requiring reoperation with left atrial clip placement and paroxysmal atrial fibrillation. Prescribed short-term anticoagulation with Coumadin due to paroxysmal atrial fibrillation. INR subtherapeutic. Patient underwent thoracentesis yesterday for recurrent left-sided pleural effusion with drainage of 1.5 L of serosanguineous fluid. I discussed the case with Dr. Prado CT surgery. There is no evidence of empyema and the fluid was not sent for analysis or culture. Patient remains afebrile however notes cough. I suspect chest x-ray findings in conjunction with hypoxia or secondary to reexpansion pulmonary edema. Recommend Lasix 20 mill grams IV x1 now. Beta- naya will be titrated to 25 mg twice daily to improve heart rate control and hopefully avoid further episodes of atrial fibrillation. Patient was intolerant to amiodarone during recent hospital stay at [facility] in [place] due to severe nausea and vomiting. Recommend low-dose colchicine due to evidence of Kenyon's syndrome with recurrent pleural effusion and small circumferential pericardial effusion per echocardiogram. CT of the chest ordered. If the pericardial effusion remains small, no need for repeat echocardiogram currently which was performed 07/26 at [facility]. 07/30/2019 as outlined above Subjective Patient seen and examined, chart, medications, telemetry reviewed. Now oxygenating well. Better inspiration less dyspnea. Ambulatory in room and hallway without difficulty. No dizziness or lightheadedness. No fevers or chills Physical Exam Constitutional: WD/WN, vitals as above Eyes: PERRL, conjunctivae normal, anicteric sclerae ENMT: external ear and nose normal, oropharynx normal Neck: trachea midline, no thyromegaly Respiratory: Auscultation: + crackles (Few left basilar otherwise clear) Cardiovascular: Rate/Rhythm: regular rate and regular rhythm Heart Sounds: normal S1, normal S2 and + murmur (Grade 2/ 6 systolic, no diastolic ); no gallop Palpation: normal PMI Vessels: normal carotid upstroke and radial pulses present; no JVD, no carotid bruit and no femoral bruit Extremities: no edema Gastrointestinal (Abdomen): normal bowel sounds, soft, nontender, no hepatosplenomegaly Musculoskeletal: no cyanosis or clubbing, extremities motor strength 5/5 Skin: no rashes, warm and dry Neurologic: PERRL, EOMI, accommodation nl, no face palsy, no dysarthria Psychiatric: A+Ox3, euthymic affect Results & Data Vital Signs (Past 12 Hours) Vital Signs Temp Pulse Resp BP BP Pulse Ox 07/31/19 06:58 36.9 C 87 19 88/63 L 93 07/31/19 04:20 37.2 C 88 20 101/56 L 94 07/30/19 23:44 37.2 C 91 H 18 103/53 L 94 Laboratory Results Laboratory Results - last 24 hr 07/29/19 07/31/19 07/31/19 12:05 05:23 05:23 WBC 7.26 RBC 3.37 L Hgb 9.6 L Hct 29.5 L MCV 87.5 MCH 28.5 MCHC 32.5 RDW Std Deviation 45.3 RDW Coeff of Daphne 14.1 Plt Count 446 H MPV 8.9 Immature Gran % (Auto) 0.4 Neut % (Auto) 65.3 Lymph % (Auto) 14.3 [place] % (Auto) 9.5 Eos % (Auto) 10.1 Baso % (Auto) 0.4 Immature Gran # (Auto) 0.03 H Neut # (Auto) 4.74 Lymph # (Auto) 1.04 L [place] # (Auto) 0.69 H Eos # (Auto) 0.73 H Baso # (Auto) 0.03 Sodium 140 Potassium 3.8 Chloride 105 Carbon Dioxide 29 Anion Gap 6.0 BUN 10 Creatinine 0.90 Est Cr Clr Drug Dosing 78.6 Est GFR ( Amer) 104.2 Est GFR (Non-Af Amer) 89.9 BUN/Creatinine Ratio 10.7 Glucose 92 Calcium 8.0 L Fluid Slide Review Vancomycin Trough 07/31/19 05:23 WBC RBC Hgb Hct MCV MCH MCHC RDW Std Deviation RDW Coeff of Daphne Plt Count MPV Immature Gran % (Auto) Neut % (Auto) Lymph % (Auto) [place] % (Auto) Eos % (Auto) Baso % (Auto) Immature Gran # (Auto) Neut # (Auto) Lymph # (Auto) [place] # (Auto) Eos # (Auto) Baso # (Auto) Sodium Potassium Chloride Carbon Dioxide Anion Gap BUN Creatinine Est Cr Clr Drug Dosing Est GFR ( Amer) Est GFR (Non-Af Amer) BUN/Creatinine Ratio Glucose Calcium Fluid Slide Review Vancomycin Trough 13.1
--- NOTE | 2019-07-31 12:20 | Hospitalist Progress Note ---
Date of Service July 31, 2019 Assessment & Plan (1) Acute respiratory failure with hypoxia: -as per admission HPI "This is a 63-year-old male with past medical history significant for nonrheumatic aortic valve stenosis, status post recent noninvasive aortic valve replacement with pig valve, paroxysmal atrial fibrillation, benign prostatic hypertrophy and osteoarthritis who comes with shortness of breath. On 07/04/2019, he had minimally invasive aortic valve replacement with pig valve for severe aortic stenosis at [place]. Postoperatively, he was extubated, chest tubes were removed and he experienced bleeding from the left atrial appendage, and was brought back to the Operating Room. A left atrial appendage clip was placed to ligate the bleeding and had atrial fibrillation postoperatively. He was initially started on amiodarone, but it was discontinued due to nausea and he was started on beta-naya and also on heparin and currently he is on Coumadin. Patient had postoperatively follow up with thoracic surgery, he was found to have pleural effusions and his Coumadin was held and he is status post left thoracocentesis on 07/27/2019 was drained about 1500 mL of bloody and serosanguineous at out patient office and he was discharged home on 08/06/19." -subsequently patient had more cough and shortness of breath and patient presented to the ED at [facility] on 07/27/19 with acute respiratory failure with hypoxia -patient had 1400 mL's of hemorrhagic fluid was removed removed from right sided thoracentesis on 07/29/19, fluid analysis of exudative fluid. continue Zosyn and Vancomycin -patient is on room air by 07/30/19 (2) Pleural effusion: -underwent thoracentesis yesterday for recurrent left-sided pleural effusion with drainage of 1.5 L of serosanguineous fluid on 07/27/19 prior to the [facility] ED visit; cardiology discussed the case with Dr. Prado CT surgery and was informed that there is no evidence of empyema during that thoracentesis and the fluid was not sent for analysis or culture -CXR 07/27/19: Bilateral pleural effusions. Bilateral asymmetric airspace opacities left greater than right -CT scan on 07/28/19: There is dense airspace consolidation throughout the left lower lobe with minimal consolidation present in the lingula. There is a moderate right pleural effusion with consolidative change at the right lung base. This could present atelectasis versus pneumonia. Only trace pleural effusion is seen on the left. Small pericardial effusion -received IV Lasix 20 mg on 07/28/19 -patient has been empirically on Zosyn and Vancomycin -patient had 1400 mL's of hemorrhagic fluid was removed removed from right sided thoracentesis on 07/29/19, fluid analysis of exudative fluid. continue Zosyn and Vancomycin -patient is on room air by 07/30/19. was continued Zosyn and Vancomycin -07/31/19: pleural fluid reviewed as no growth. antibiotics stopped. discussed with pulmonary service and agreed that no antibiotics needed on discharge (3) Pericardial effusion without cardiac tamponade: (4) Kenyon's syndrome: -Cardiology started low-dose colchicine due to evidence of Kenyon's syndrome with recurrent pleural effusion and pericardial effusion -echocardiogram on 07/28/19 as a moderate sized loculated right lateral pericardial effusion -continue colchicine 0.6 mg daily (5) S/P AVR (aortic valve replacement): -Severe aortic valve stenosis, recent aortic valve replacement, postoperative complication by left atrial appendage site bleeding and was clipped -echocardiogram on 07/28/19 shows functional bioprosthetic valve -continue BID metoprolol -discussed with cardiology service Dr. Alejandro and recommends 6 to 12 months of metoprololBeta naya -because of bioprosthetic valve and recent paroxysmal atrial fibrillation, cardiology service Dr. Alejandro estimates 3 months of systemic anticoagulation with coumadin. Coumadin 4 mg daily ordered starting on 07/30/19 Paroxysmal atrial fibrillation -patient had atrial fibrillation initially after the aortic valve replacement before returning to sinus rhythm -has been in sinus rhythm and continues to be in sinus rhythm after admission to [facility] DVT prophylaxis: SCDs, aspirin. encourage ambulation, Coumadin 4 mg daily ordered starting on 07/30/19 discharge medications (warfrain 4 mg daily, metoprolol succinate 12.5 mg twice a day, colchicine 0.6 mg daily) sent electronically to [facility] [address] [facility] in [place], [place] Patient to schedule follow up with [facility] [address], [place] [address] . Patient should follow up with Cassandra Lindsey MD or his colleagues [facility] appointment line as was called to set up coumadin clinic/INR checks Other appointments 08/04/2019 1:00 PM Provider Omi Pedroza DO Department Family Practice [facility] 08/15/2019 10:30 AM Provider Denys Blank DO Department Cardiology, [facility] 08/16/2019 2:15 PM Provider Thad Prado MD Department Cardiothoracic Surg [facility] [place] Discharge Diagnosis: Acute respiratory failure with hypoxia (now resolved); Pleural effusion; Pericardial effusion without cardiac tamponade, Kenyon's syndrome, History of AVR (aortic valve replacement), Paroxysmal atrial fib rillation Subjective Patient seen and examined. ambulating on room air. no respiratory distress. denies acute pain of the chest or abdomen. no dizziness. no headache. Physical Exam Constitutional: comfortable Eyes: PERRL, conjunctivae normal, anicteric sclerae EOM intact bilaterally ENMT: external ear and nose normal, oropharynx normal Neck: normal visual inspection Respiratory: normal respiratory effort Cardiovascular: RRR, no murmur, no edema Gastrointestinal (Abdomen): normal bowel sounds, soft, nontender, no hepatosplenomegaly Musculoskeletal: Head/Neck/Chest: normocephalic and head atraumatic Neurologic: PERRL, EOMI, accommodation nl, no face palsy, no dysarthria CN's II-XI intact bilaterally Psychiatric: A+Ox3, euthymic affect Results & Data Vital Signs (Past 12 Hours) Vital Signs Temp Pulse Resp BP Pulse Ox 07/31/19 11:15 36.9 C 90 18 96/50 L 93 07/31/19 06:58 36.9 C 87 19 88/63 L 93 07/31/19 04:20 37.2 C 88 20 101/56 L 94
--- NOTE | 2019-07-31 12:27 | Discharge Summary ---
Date of Service July 31, 2019 Admission HPI Per Admitting Provider CHIEF COMPLAINT: Shortness of breath. HISTORY OF PRESENT ILLNESS: This is a 63-year-old male with past medical history significant for nonrheumatic aortic valve stenosis, status post recent noninvasive aortic valve replacement with pig valve, paroxysmal atrial fibrillation, benign prostatic hypertrophy and osteoarthritis who comes with shortness of breath. On 07/04/2019, he had minimally invasive aortic valve replacement with pig valve for severe aortic stenosis at [place].. Postoperatively, he was extubated, chest tubes were removed and he experienced bleeding from the left atrial appendage, and was brought back to the Operating Room. A left atrial appendage clip was placed to ligate the bleeding and had atrial fibrillation postoperatively. He was initially started on amiodarone, but it was discontinued due to nausea and he was started on beta-naya and also on heparin and currently he is on Coumadin. Patient had postoperatively follow up with thoracic surgery, he was found to have pleural effusions and his Coumadin was held and he is status post left thoracocentesis on 07/27/2019 was drained about 1500 mL of bloody and serosanguineous at out patient office and he was discharged home. The patient states after going home,he started to have continuous coughing and he was bringing up greenish yellow phlegm and he felt short of breath and he felt panicky and he never had this kind of feeling before so he came here to [facility] Emergency Room and he was saturating 83% on room air and was placed on oxygen initially on 6 liters, currently he is on nonrebreather 15 liters saturating at 94% to 95%, but he is speaking in full sentences and seems to be comfortable. Denies any chest pain. No nausea. No vomiting. No headache. No blurred vision. He has runny nose since his surgery. No earache. No sore throat. Appetite is okay. No abdominal pain. Normal bowel and bladder movements. He was recently started on Cipro for possible prostatitis. No black stools or blood in the stools. No swelling in the legs. No rash. Currently, blood pressure is stable, afebrile and slightly tachycardic. ALLERGIES: No known drug allergies. PAST MEDICAL HISTORY: As mentioned above. PAST SURGICAL HISTORY: Colonoscopy, dental surgery, aortic valve replacement and also left atrial appendage clip placement. MEDICATIONS: Currently on Coumadin as directed, ciprofloxacin 500 mg p.o. b.i.d., Pepcid 20 mg p.o. b.i.d., Toprol-XL 12.5 mg p.o. b.i.d. and aspirin 81 mg p.o. daily. FAMILY HISTORY: Significant for father had Parkinson disease. SOCIAL HISTORY: . Former smoker, quit in 1974. Smoked for 7 years. History of heavy drinking 20 years ago. No drug use. REVIEW OF SYMPTOMS: As per HPI. Rest of review of systems negative. Admission Exam Per Admitting Provider PHYSICAL EXAMINATION: GENERAL: The patient is of moderate build, not in acute distress. VITAL SIGNS: Temperature 37.1, pulse 107, respiratory rate 24, blood pressure 130/77 and oxygen 91% on nonrebreather. HEENT: No pallor. No icterus. Pupils are equal, round and reactive to light. NECK: No JVD. No neck masses. No carotid bruits. CARDIOVASCULAR: S1, S2 heard. Regular rate and rhythm. No significant murmur . No gallop. RESPIRATORY SYSTEM: Normal AP diameter. No accessory muscle use. Mild bibasilar crackles more on the left side. ABDOMEN: Soft. Bowel sounds present. Nontender. No distention. Surgical scars from recent surgery. No drainage seen. CENTRAL NERVOUS SYSTEM: Cranial nerves II through XII grossly intact. Nonfocal. EXTREMITIES: No edema. No erythema. Principal Diagnosis Acute respiratory failure with hypoxia (now resolved); Pleural effusion; Pericardial effusion without cardiac tamponade, Kenyon's syndrome, History of AVR (aortic valve replacement), Paroxysmal atrial fibrillation Discharge Exam Constitutional comfortable Eyes PERRL, conjunctivae normal, anicteric sclerae EOM intact bilaterally ENMT external ear and nose normal, oropharynx normal Neck normal visual inspection Respiratory normal respiratory effort Cardiovascular RRR, no murmur, no edema Gastrointestinal (Abdomen) normal bowel sounds, soft, nontender, no hepatosplenomegaly Musculoskeletal Head/Neck/Chest: normocephalic and head atraumatic Neurologic PERRL, EOMI, accommodation nl, no face palsy, no dysarthria CN's II-XI intact bilaterally Psychiatric A+Ox3, euthymic affect Discharge Data Allergies Allergy/AdvReac Type Severity Reaction Status Date / Time No Known Allergies Allergy Mild Verified 04/06/19 08:09 Consultations 07/27/19 22:56 ED Decision to Admit Stat 07/28/19 02:04 Consult Cardiology Routine Consult Case Management - Discharge Planning Routine 07/28/19 08:00 Consult Pulmonology Routine Ordered Studies 07/28/19 10:02 CT chest wo con Routine 07/29/19 11:21 US point of care ultrasound Urgent Hospital Course (1) Acute respiratory failure with hypoxia: -as per admission HPI "This is a 63-year-old male with past medical history significant for nonrheumatic aortic valve stenosis, status post recent noninvasive aortic valve replacement with pig valve, paroxysmal atrial fibrillation, benign prostatic hypertrophy and osteoarthritis who comes with shortness of breath. On 07/04/2019, he had minimally invasive aortic valve replacement with pig valve for severe aortic stenosis at [place]. Postoperatively, he was extubated, chest tubes were removed and he experienced bleeding from the left atrial appendage, and was brought back to the Operating Room. A left atrial appendage clip was placed to ligate the bleeding and had atrial fibrillation postoperatively. He was initially started on amiodarone, but it was discontinued due to nausea and he was started on beta-naya and also on heparin and currently he is on Coumadin. Patient had postoperatively follow up with thoracic surgery, he was found to have pleural effusions and his Coumadin was held and he is status post left thoracocentesis on 07/27/2019 was drained about 1500 mL of bloody and serosanguineous at out patient office and he was discharged home on 08/06/19." -subsequently patient had more cough and shortness of breath and patient presented to the ED at [facility] on 07/27/19 with acute respiratory failure with hypoxia -patient had 1400 mL's of hemorrhagic fluid was removed removed from right sided thoracentesis on 07/29/19, fluid analysis of exudative fluid. continue Zosyn and Vancomycin -patient is on room air by 07/30/19 (2) Pleural effusion: -underwent thoracentesis yesterday for recurrent left-sided pleural effusion with drainage of 1.5 L of serosanguineous fluid on 07/27/19 prior to the [facility] ED visit; cardiology discussed the case with Dr. Prado CT surgery and was informed that there is no evidence of empyema during that thoracentesis and the fluid was not sent for analysis or culture -CXR 07/27/19: Bilateral pleural effusions. Bilateral asymmetric airspace opacities left greater than right -CT scan on 07/28/19: There is dense airspace consolidation throughout the left lower lobe with minimal consolidation present in the lingula. There is a moderate right pleural effusion with consolidative change at the right lung base. This could present atelectasis versus pneumonia. Only trace pleural effusion is seen on the left. Small pericardial effusion -received IV Lasix 20 mg on 07/28/19 -patient has been empirically on Zosyn and Vancomycin -patient had 1400 mL's of hemorrhagic fluid was removed removed from right sided thoracentesis on 07/29/19, fluid analysis of exudative fluid. continue Zosyn and Vancomycin -patient is on room air by 07/30/19. was continued Zosyn and Vancomycin -07/31/19: pleural fluid reviewed as no growth. antibiotics stopped. discussed with pulmonary service and agreed that no antibiotics needed on discharge (3) Pericardial effusion without cardiac tamponade: (4) Kenyon's syndrome: -Cardiology started low-dose colchicine due to evidence of Kenyon's syndrome with recurrent pleural effusion and pericardial effusion -echocardiogram on 07/28/19 as a moderate sized loculated right lateral pericardial effusion -continue colchicine 0.6 mg daily (5) S/P AVR (aortic valve replacement): -Severe aortic valve stenosis, recent aortic valve replacement, postoperative complication by left atrial appendage site bleeding and was cl ipped -echocardiogram on 07/28/19 shows functional bioprosthetic valve -continue BID metoprolol -discussed with cardiology service Dr. Alejandro and recommends 6 to 12 months of metoprololBeta naya -because of bioprosthetic valve and recent paroxysmal atrial fibrillation, cardiology service Dr. Alejandro estimates 3 months of systemic anticoagulation with coumadin. Coumadin 4 mg daily ordered starting on 07/30/19 Paroxysmal atrial fibrillation -patient had atrial fibrillation initially after the aortic valve replacement before returning to sinus rhythm -has been in sinus rhythm and continues to be in sinus rhythm after admission to [facility] DVT prophylaxis: SCDs, aspirin. encourage ambulation, Coumadin 4 mg daily ordered starting on 07/30/19 discharge medications (warfrain 4 mg daily, metoprolol succinate 12.5 mg twice a day, colchicine 0.6 mg daily) sent electronically to [facility] [address] [place], [place] Patient to schedule follow up with [facility] [address] [place] [address] . Patient should follow up with Cassandra Lindsey MD or his colleagues [facility] appointment line as was called to set up coumadin clinic/INR checks Other appointments 08/04/2019 1:00 PM Provider Omi Pedroza DO Department Family Practice [facility] 08/15/2019 10:30 AM Provider Denys Blank DO Department Cardiology, [facility] 08/16/2019 2:15 PM Provider Thad Prado MD Department Cardiothoracic Surg [facility] Discharge Diagnosis: Acute respiratory failure with hypoxia (now resolved); Pleural effusion; Pericardial effusion without cardiac tamponade, Kenyon's syndrome, History of AVR (aortic valve replacement), Paroxysmal atrial fibrillation Total Time Total Time Spent Total Time Spent (In Minutes): 40 minutes Total Time Includes: Examination of the Patient, Discharge Planning, Medication Reconciliation and Communication With Other Providers Discharge Plan Discharge Items Patient Disposition: Home - Self-Care Reason For Visit: SOB Discharge Diagnosis: Acute respiratory failure with hypoxia; Pleural effusion; Pericardial effusion without cardiac tamponade, Kenyon's syndrome, History of AVR (aortic valve replacement), Paroxysmal atrial fibrillation Condition on Discharge: Good Activity: Per Instructions section Non-emergency contact: Primary Care Provider, [employer] Call non-emergency contact if: you have any medication questions Follow-up/Referrals: Omi Pedroza DO [Primary Care Provider] - Diet: Regular Addtl Attending Provider Instructions: -discussed with cardiology service Dr. Alejandro and recommends 6 to 12 months of metoprolol -because of bioprosthetic valve and recent paroxysmal atrial fibrillation, cardiology service Dr. Alejandro estimates 3 months of systemic anticoagulation with coumadin. discharge medications (warfrain 4 mg daily, metoprolol succinate 12.5 mg twice a day, colchicine 0.6 mg daily) sent electronically to [facility] [address] [place], [place] Patient to schedule follow up with [facility] [address] [place] [address] . Patient should follow up with Cassandra Lindsey MD or his colleagues [facility] appointment line as was called to set up coumadin clinic/INR checks Other appointments 08/04/2019 1:00 PM Provider Omi Pedroza DO Department Family Practice [facility] 08/15/2019 10:30 AM Provider Denys Blank DO Department Cardiology, [facility] 08/16/2019 2:15 PM Provider Thad Prado MD Department Cardiothoracic Surg [facility] Pending Studies at Discharge: No Stand-Alone Forms: My [facility] Medications and DC Order Prescriptions: New warfarin [Coumadin] 4 mg Tablet 4 mg PO DAILY@1600 30 Days Qty: 30 RF: 0 metoprolol succinate 25 mg Tablet Extended Release 24 Hr 12.5 mg PO BID 30 Days Qty: 30 RF: 0 colchicine [Colcrys] 0.6 mg Tablet 0.6 mg PO QAM 30 Days Qty: 30 RF: 0 Continued aspirin 81 mg Tablet,Delayed Release (Dr/Ec) 81 mg PO QAM RF: 0 famotidine 20 mg tablet 20 mg PO BID RF: 0 Discontinued acetaminophen [Tylenol Extra Strength] 500 mg Tablet 500 mg PO Q6H PRN (Reason: Pain) RF: 0 warfarin [Jantoven] 2 mg tablet 4 mg PO QPM RF: 0 metoprolol tartrate 25 mg tablet 12.5 mg PO BID RF: 0 Discharge Orders: Discharge Order (Routine); Ordered 07/31/19 Ordered By: Osbaldo Crowe Admission Data Admit Date/Time: 07/28/19 00:58 Attending Provider: Osbaldo Crowe Admit Provider: Andre Rodarte Primary Care Provider: Omi Perdoza Other Providers: Andre Rodarte ; Ken Braswell ; Raz Brown ; Andrew Alejandro ; Denys Blank ; Geoffrey Lentz ; Boris Pierce ; Halima Grimes ; Annette Robledo ; René Roman
== END 2019-07-31 13:45 | disposition home or self-care (01) | DRG 186 ==
LOC: ED 21:28 → 1E 07-28 00:58 → 2E 07-28 17:54